=== PATIENT | female | born 1950 | race Asian ===

== ENCOUNTER 2021-06-25 12:14 | Inpatient (IN) ==
--- NOTE | 2021-06-25 12:50 | Emergency Department Note ---
History of Present Illness General Chief complaint: Nausea Stated complaint: NAUSEA,HASN'T BEEN ABLE TO KEEP ANYTHING [id number] Time Seen by Provider: 06/25/21 12:31 Source: patient History of Present Illness Provider complaint: Vomiting and abdominal pain Onset (ago): day(s) 2 Location: abdomen Radiation: non-radiation Severity: mild Pain Consistency: + intermittent Maximum Pain Intensity: 8 Quality: + sharp Relieved By: + medication (Oxycodone) Exacerbated By: + eating Associated symptoms: + nausea/vomiting; no chest pain, no cough, no fever/chills or no shortness of breath This is a 70-year-old female with a history of metastatic pancreatic disease presenting with abdominal discomfort and vomiting for the past 2 days. She describes the pain as a sharp pain across her upper abdomen. It is worse when she eats and better when she takes her oxycodone which she took earlier today. She states that she was able to keep down some soup and crackers this morning. She states that typically she will feel nauseated earlier in the day but when she has lunch and dinner she starts to feel worse and vomits. She denies any fever, cough or cold symptoms, chest pain, shortness of breath, diarrhea or urinary symptoms. The patient states that she had 2 normal bowel movements yesterday but none today. Her states that she was found to have a blood clot in the abdomen on her PET scan and is currently on Xarelto. She was on Xarelto prior to this. He is not exactly sure why. She did undergo a course of chemotherapy previously and did remarkably better with reduction in size of her mass and metastatic disease but recently has had worsening findings on her PET scan with disease in the lungs, liver and lymph nodes. Home Medications Medication Instructions Recorded Confirmed Type gabapentin 300 mg capsule 300 mg PO HS 06/17/21 06/25/21 History (Neurontin) [id number] 1 cap PO TIDM 06/17/21 06/25/21 History 36,000-114,000-180,000 unit capsule,delay rel (Creon) meloxicam 15 mg tablet (Mobic) 15 mg PO DAILY 06/17/21 06/25/21 History metoclopramide HCl 10 mg tablet 10 mg PO TIDM 06/17/21 06/25/21 History (Reglan) oxycodone 5 mg tablet (Roxicodone) 5 mg PO Q6H PRN 06/17/21 06/25/21 History docusate sodium 100 mg capsule 100 mg PO DAILY 06/25/21 06/25/21 History (Dulcolax Stool Softener (docusate)) fentanyl 12 mcg/hr transdermal 12 mcg TOPICAL Q72H 06/25/21 06/25/21 History patch ondansetron HCl 4 mg tablet 4 mg PO TID 06/25/21 06/25/21 History prednisone 10 mg tablet 10 mg PO DAILY 06/25/21 06/25/21 History rivaroxaban 15 mg tablet (Xarelto) 15 mg PO BID 06/25/21 06/25/21 History Allergies Allergy/AdvReac Type Severity Reaction Status Date / Time No Known Allergies Allergy Unverified 06/25/21 15:06 Past Med/Surg History Medical History History of biliary stent insertion Pancreatic cancer Transaminitis Social History Smoking Status: Never smoker Preferred Language: Paragu[place] Feels Safe at Home: Yes Review of Systems See HPI for pertinent positives & negatives. and A total of 10 systems reviewed and were otherwise negative Physical Exam Vital Signs Vital Signs - 24 hr 06/25/21 12:17 06/25/21 15:01 06/25/21 15:30 Temperature 36.9 C Temperature Source Oral Pulse Rate 71 71 67 Pulse Rate from SpO2 Sensor 73 68 Respiratory Rate 16 14 14 Blood Pressure 134/69 119/70 141/74 H Blood Pressure Mean 90 86 96 Pulse Oximetry 98 98 98 Oxygen Delivery Method Room Air Sepsis Recent Fever Within 48 Hours No Sepsis New/Unexplained Change in Mental Status No Sepsis Action Taken by Nursing No Action Required 06/25/21 16:00 06/25/21 16:30 06/25/21 17:00 Temperature Temperature Source Pulse Rate 70 70 76 Pulse Rate from SpO2 Sensor Respiratory Rate 15 17 17 Blood Pressure 145/66 H 149/73 H 151/75 H Blood Pressure Mean 92 98 100 Pulse Oximetry Oxygen Delivery Method Sepsis Recent Fever Within 48 Hours Sepsis New/Unexplained Change in Mental Status Sepsis Action Taken by Nursing 06/25/21 17:30 Temperature Temperature Source Pulse Rate 79 Pulse Rate from SpO2 Sensor Respiratory Rate 21 Blood Pressure 151/93 H Blood Pressure Mean 112 Pulse Oximetry Oxygen Delivery Method Sepsis Recent Fever Within 48 Hours Sepsis New/Unexplained Change in Mental Status Sepsis Action Taken by Nursing Constitutional: Vital signs reviewed. Eyes: Pupils are equal round reactive to light. Conjunctiva are noninjected. ENT: Pharynx is clear without erythema or exudate. Mucous membranes are dry. Neck supple without meningeal signs. Respiratory: Clear to auscultation bilaterally. Breath sounds are equal bilaterally. Cardiovascular: Regular rate and rhythm. No rubs or gallops. GI: Soft, distended and nontender. Bowel sounds are present. Rectal: Guaiac positive brown stool. No blood. Musculoskeletal: No peripheral edema. No lower extremity tenderness. Integumentary: No cyanosis. or jaundice. Neurological: The patient is awake and alert. No focal deficits. Psychiatric: Normal affect. Not anxious appearing. Course Administered Medications Sodium Chloride (Nss) 500 mls @ 80 mls/hr IV .Q6H15M ABRAHAM Stop: 07/25/21 12:44 Last Admin: 06/25/21 15:38 Dose: 80 mls/hr Documented by: [id number] Discontinued Medications Potassium Chloride (K Wander / Wtr) 10 meq in 100 mls @ 100 mls/hr IV Q1H ABRAHAM Stop: 06/25/21 17:59 Last Admin: 06/25/21 18:04 Dose: 100 mls/hr Documented by: [id number] Infusion: 06/25/21 17:24 Dose: 100 mls/hr Documented by: [id number] Admin: 06/25/21 16:24 Dose: 100 mls/hr Documented by: [id number] Pantoprazole Sodium 40 mg/ (Syringe) 10 mls @ 5 mls/min IV NOW STA Stop: 06/25/21 16:24 Last Admin: 06/25/21 17:10 Dose: 5 mls/min Documented by: [id number] Oxycodone HCl (Oxycodone Hcl Ir 5 Mg Tab (Immediate Release)) 5 mg PO NOW STA Stop: 06/25/21 16:59 Last Admin: 06/25/21 17:10 Dose: 5 mg Documented by: [id number] Medical Decision Making Differential Diagnosis Bowel obstruction, partial bowel obstruction, dehydration, gastritis, gastric outlet obstruction, ascites Medical Records Attestation: I reviewed the patient's medical records. I did perform a limited focused review of portions of the patient's old chart on the electronic medical record. The patient was seen here June [address] of the abdomen pelvis which showed increased size in the pancreatic mass as well as carcinomatosis, ascites and metastatic liver disease as well as earl involvement. She had a PET scan several days later which showed similar findings as well as metastatic disease to the lung. Home Medications Current Medication List: was personally reviewed by me Laboratory Data Attestation: I reviewed the patient's lab results. Result diagrams: 06/25/21 14:45 06/25/21 14:45 Lab Results 06/25/21 06/25/21 06/25/21 Range/Units 14:45 14:45 14:45 WBC 4.88 (4.8-10.8) K/uL RBC 3.02 L (4.2-5.4) M/uL Hgb 8.7 L (12.0-16.0) g/dL Hct 25.9 L (37-47) % MCV 85.8 (80-100) fL MCH 28.8 (25-34) pg MCHC 33.6 (32-36) g/dL RDW Std Deviation 46.4 H (36.4-46.3) fL RDW Coeff of Fara 14.7 H (11.5-14.5) % Plt Count 145 (130-400) K/uL MPV 8.8 (7.4-10.4) fL Immature Gran % (Auto) 0.2 % Neut % (Auto) 75.2 % Lymph % (Auto) 16.6 % Wharton % (Auto) 7.2 % Eos % (Auto) 0.4 % Baso % (Auto) 0.4 % Neut # (Auto) 3.67 (1.4-6.5) K/uL Lymph # (Auto) 0.81 L (1.2-3.4) K/uL Wharton # (Auto) 0.35 (0.11-0.59) K/uL Eos # (Auto) 0.02 (0-0.5) K/uL Baso # (Auto) 0.02 (0-0.2) K/uL Immature Gran # (Auto) 0.01 (0.00-0.02) K/uL Sodium 130 L (136-145) mmol/L Potassium 2.9 L (3.5-5.1) mmol/L Chloride 98 (98-107) mmol/L Carbon Dioxide 27 (21-32) mmol/L Anion Gap 5.0 (3-11) BUN 4 L (7-18) mg/dl Creatinine 0.18 L (0.6-1.2) mg/dl Est Cr Clr Drug Dosing 247.4 ml/min Est GFR ( Amer) > 150.0 ml/min Est GFR (Non-Af Amer) 139.2 ml/min BUN/Creatinine Ratio 22.5 H (10-20) Glucose 128 H (70-99) mg/dl Calcium 7.5 L (8.5-10.1) mg/dl Magnesium 1.9 (1.8-2.4) mg/dl Total Bilirubin 0.6 (0.2-1) mg/dl AST 34 (15-37) U/L ALT 68 (12-78) U/L Alkaline Phosphatase 590 H (45-117) U/L Troponin I < 0.015 (0-0.045) ng/ml Total Protein 5.9 L (6.4-8.2) gm/dl Albumin 2.0 L (3.4-5.0) gm/dl Globulin 3.9 (2.5-4.0) gm/dl Albumin/Globulin Ratio 0.5 L (0.9-2) Lipase 110 (73-393) U/L Urine Color Urine Appearance (Clear) Urine pH (4.5-7.5) Ur Specific [place]roix (1.000-1.030) Urine Protein (Negative) Urine Glucose (UA) (Negative) Urine Ketones (Negative) Urine Blood (Negative) Urine Nitrite (Negative) Urine Bilirubin (Negative) Urine Urobilinogen (Negative) Ur Leukocyte Esterase (Negative) Urine WBC (Auto) (0-5) /hpf Urine RBC (Auto) (0-4) /hpf U Hyaline Cast (Auto) (0-5) /lpf U Epithel Cells (Auto) (0-5) /lpf Urine Bacteria (Auto) (Negative) COVID-19 Eval Order SARS-CoV-2 (PCR) (Negative) 06/25/21 06/25/21 06/25/21 Range/Units 15:20 16:21 16:21 WBC (4.8-10.8) K/uL RBC (4.2-5.4) M/uL Hgb (12.0-16.0) g/dL Hct (37-47) % MCV (80-100) fL MCH (25-34) pg MCHC (32-36) g/dL RDW Std Deviation (36.4-46.3) fL RDW Coeff of Fara (11.5-14.5) % Plt Count (130-400) K/uL MPV (7.4-10.4) fL Immature Gran % (Auto) % Neut % (Auto) % Lymph % (Auto) % Wharton % (Auto) % Eos % (Auto) % Baso % (Auto) % Neut # (Auto) (1.4-6.5) K/uL Lymph # (Auto) (1.2-3.4) K/uL Wharton # (Auto) (0.11-0.59) K/uL Eos # (Auto) (0-0.5) K/uL Baso # (Auto) (0-0.2) K/uL Immature Gran # (Auto) (0.00-0.02) K/uL Sodium (136-145) mmol/L Potassium (3.5-5.1) mmol/L Chloride (98-107) mmol/L Carbon Dioxide (21-32) mmol/L Anion Gap (3-11) BUN (7-18) mg/dl Creatinine (0.6-1.2) mg/dl Est Cr Clr Drug Dosing ml/min Est GFR ( Amer) ml/min Est GFR (Non-Af Amer) ml/min BUN/Creatinine Ratio (10-20) Glucose (70-99) mg/dl Calcium (8.5-10.1) mg/dl Magnesium (1.8-2.4) mg/dl Total Bilirubin (0.2-1) mg/dl AST (15-37) U/L ALT (12-78) U/L Alkaline Phosphatase (45-117) U/L Troponin I (0-0.045) ng/ml Total Protein (6.4-8.2) gm/dl Albumin (3.4-5.0) gm/dl Globulin (2.5-4.0) gm/dl Albumin/Globulin Ratio (0.9-2) Lipase (73-393) U/L Urine Color Yellow Urine Appearance Cloudy A (Clear) Urine pH 8.5 H (4.5-7.5) Ur Specific [place]roix 1.007 (1.000-1.030) Urine Protein Negative (Negative) Urine Glucose (UA) Negative (Negative) Urine Ketones Negative (Negative) Urine Blood Negative (Negative) Urine Nitrite Negative (Negative) Urine Bilirubin Negative (Negative) Urine Urobilinogen Negative (Negative) Ur Leukocyte Esterase Trace H (Negative) Urine WBC (Auto) 1-5 (0-5) /hpf Urine RBC (Auto) 0-4 (0-4) /hpf U Hyaline Cast (Auto) 1-5 (0-5) /lpf U Epithel Cells (Auto) 10-20 H (0-5) /lpf Urine Bacteria (Auto) Negative (Negative) COVID-19 Eval Order Covid19 at [facility] SARS-CoV-2 (PCR) NEGATIVE (Negative) Imaging Data Radiologist's Impression: Abdomen/Pelvis CT 06/25/21 12:45 CT abd pelvis wo con CLINICAL INDICATION: MN ^vomiting eval for obstruction. History of pancreatic cancer. TECHNIQUE: Helical axial images of the abdomen and pelvis were obtained and displayed at 5 and 1 mm intervals. Automated dose lowering techniques and/or adjustment according to patient size were utilized for this exam. This exam was performed without intravenous contrast. COMPARISON: None available at the time of this dictation. FINDINGS: Lower chest: There is a small left pleural effusion. There is a right lung base nodule measuring 11 mm in diameter. An additional anterior nodular density is seen measuring 13 mm. These are unchanged from prior exam. Cardiomegaly with biatrial enlargement is seen. Liver: Unremarkable. No focal lesions are seen. Gallbladder and biliary tree: No calcified gallstones. Normal caliber wall. A biliary stent is in place. Pneumobilia is seen. Pancreas: There is marked dilation of the pancreatic duct and prominence of the pancreatic head compatible with history of pancreatic cancer. Spleen: Unremarkable. Adrenals: Thickening of the left adrenal gland is unchanged from prior exam. Kidneys and ureters: Unremarkable. Bladder: Unremarkable. Reproductive organs: Unremarkable. Bowel: A large amount of stool is seen. The appendix is unremarkable. There are a few distended small bowel loops in the proximal jejunum measuring up to 27 mm without evidence of yazmin dilation. Lymph nodes Retroperitoneal: Unremarkable. Mesenteric: Unremarkable. Pelvic: Unremarkable. Peritoneum: Mild to moderate ascites is seen. Vessels: Atherosclerotic calcifications are seen. Abdominal wall: A fat-containing umbilical hernia is seen. Bones: Unremarkable. IMPRESSION: 1. A few distended loops of small bowel are seen without yazmin dilation, this may represent ileus or enteritis but is unlikely to represent obstruction. 2. Pancreatic head mass with dilated pancreatic duct and biliary stent in place with resulting pneumobilia. 3. Additional findings as above. ACT 112: Negative or not required by law. Electronically signed by: Leroy Quick M.D. 06/25/2021 1:10 PM ECG Data Attestation: I personally reviewed and interpreted this ECG as follows: Indication: + abdominal pain Rate (beats per minute): 67 Rhythm: + normal sinus ECG [place]: + Normal ECG ST segments: + T-wave inversions ECG Findings: no PVCs Comparison ECG Date: from (June 17, 2021) Change: no significant change MDM Narrative I did evaluate the patient as noted above. She has a history of metastatic pancreatic cancer and presents with vomiting and abdominal pain for the past 2 days with abdominal distention. IV access was established. I did treat her with normal saline IV. I did place an order for continuous cardiac monitoring. The monitor showed normal sinus rhythm at a rate of 68 bpm. I did order and personally review the patient's 12-lead EKG as described above. She has no acute ischemic changes. I did order a urine analysis. She does not have a UTI. I did order and review the patient's blood work as noted in the electronic medical record. Her white blood cell count is 4.8. Hemoglobin is 8.7. This is down from 10.5 June 22. The patient is on Xarelto. She states she has not taking it since yesterday. She denies any rectal bleeding or melanotic stools. I did perform a rectal examination which showed strongly guaiac positive brown stool. I did order a type and screen. She remains hemodynamically stable and does not currently require transfusion. Her platelet count is normal. Electrolytes demonstrate a sodium of 130, potassium of 2.9 and a calcium of 7.5. I did order IV KCl. I did order a CT of the abdomen and pelvis. I did review the images myself as well as the radiology report as described above. She does not appear to have an obstruction. There are small bowel loops that are distended but not dilated. She does have abdominal ascites. I did discuss the test results with the patient and her . I did recommend hospitalization for further care and evaluation. I did discuss case with hospitalist and case filler. Impression & Plan Acute GI bleeding, Malignant neoplasm of pancreas metastatic to liver, Anticoagulated, Anemia due to blood loss, Acute hyponatremia, Hypokalemia, Hypocalcemia Discharge Plan Visit Data Chief Complaint: Nausea Stated Complaint: NAUSEA,HASN'T BEEN ABLE TO KEEP ANYTHING [id number] ED Provider: Juan F Natarajan Discharge Problem: Acute GI bleeding, Malignant neoplasm of pancreas metastatic to liver, Anticoagulated, Anemia due to blood loss, Acute hyponatremia, Hypokalemia, Hypocalcemia Patient Disposition: Admitted As Inpatient Forms Stand Alone Forms: [facility] Prescriptions Prescriptions: No Action meloxicam [Mobic] 15 mg tablet 15 mg PO DAILY RF: 0 gabapentin [Neurontin] 300 mg capsule 300 mg PO HS RF: 0 metoclopramide HCl [Reglan] 10 mg tablet 10 mg PO TIDM RF: 0 oxycodone [Roxicodone] 5 mg tablet 5 mg PO Q6H PRN (Reason: Pain) RF: 0 Creon 36,000-114,000- 180,000 unit capsule,delayed release(DR/EC) 1 cap PO TIDM RF: 0 prednisone 10 mg tablet 10 mg PO DAILY RF: 0 ondansetron HCl 4 mg tablet 4 mg PO TID RF: 0 docusate sodium [Dulcolax Stool Softener (dss)] 100 mg Capsule 100 mg PO DAILY RF: 0 fentanyl 12 mcg/hr patch 72 hour 12 mcg topical Q72H RF: 0 Xarelto 15 mg tablet 15 mg PO BID RF: 0 Referrals Referrals: Griselda Fair D.O. [Primary Care Provider] -
--- NOTE | 2021-06-25 13:12 | CT Scan Report ---
CT abd pelvis wo con CLINICAL INDICATION: MN ^vomiting eval for obstruction. History of pancreatic cancer. TECHNIQUE: Helical axial images of the abdomen and pelvis were obtained and displayed at 5 and 1 mm i ntervals. Automated dose lowering techniques and/or adjustment according to patient size were utilize d for this exam. This exam was performed without intravenous contrast. COMPARISON: None available at the time of this dictation. FINDINGS: Lower chest: There is a small left pleural effusion. There is a right lung base nodule measuring 11 mm in diameter. An additional anterior nodular density is seen measuring 13 mm. These are unchanged f rom prior exam. Cardiomegaly with biatrial enlargement is seen. Liver: Unremarkable. No focal lesions are seen. Gallbladder and biliary tree: No calcified gallstones. Normal caliber wall. A biliary stent is in perri ce. Pneumobilia is seen. Pancreas: There is marked dilation of the pancreatic duct and prominence of the pancreatic head natacha tible with history of pancreatic cancer. Spleen: Unremarkable. Adrenals: Thickening of the left adrenal gland is unchanged from prior exam. Kidneys and ureters: Unremarkable. Bladder: Unremarkable. Reproductive organs: Unremarkable. Bowel: A large amount of stool is seen. The appendix is unremarkable. There are a few distended small bowel loops in the proximal jejunum measuring up to 27 mm without evidence of yazmin dilation. Lymph nodes Retroperitoneal: Unremarkable. Mesenteric: Unremarkable. Pelvic: Unremarkable. Peritoneum: Mild to moderate ascites is seen. Vessels: Atherosclerotic calcifications are seen. Abdominal wall: A fat-containing umbilical hernia is seen. Bones: Unremarkable. IMPRESSION: 1. A few distended loops of small bowel are seen without yazmin dilation, this may represent ileus or enteritis but is unlikely to represent obstruction. 2. Pancreatic head mass with dilated pancreatic duct and biliary stent in place with resulting pneum obilia. 3. Additional findings as above. ACT 112: Negative or not required by law. Electronically signed by: Leroy Quick M.D. 06/25/2021 1:10 PM
[2021-06-25 14:56] LABS: Basophils # (auto) 0.02 K/uL (0-0.2); Basophils % (auto) 0.4 %; Eosinophils # (auto) 0.02 K/uL (0-0.5); Eosinophils % (auto) 0.4 %; Hematocrit (blood only) 25.9 % (37-47); Hemoglobin 8.7 g/dL (12.0-16.0); Immature Granulocytes # (auto) 0.01 K/uL (0.00-0.02); Immature Granulocytes % (auto) 0.2 %; Lymphocytes # (auto) 0.81 K/uL (1.2-3.4); Lymphocytes % (auto) 16.6 %; Mean Corpuscular Hemoglobin 28.8 pg (25-34); Mean Corpuscular Hgb Conc 33.6 g/dL (32-36); Mean Corpuscular Volume 85.8 fL (80-100); Mean Platelet Volume 8.8 fL (7.4-10.4); Monocytes # (auto) 0.35 K/uL (0.11-0.59); Monocytes % (auto) 7.2 %; Neutrophils # (auto) 3.67 K/uL (1.4-6.5); Neutrophils % (auto) 75.2 %; Platelet Count 145 K/uL (130-400); RDW Coefficient of Variation 14.7 % (11.5-14.5); RDW Standard Deviation 46.4 fL (36.4-46.3); Red Blood Count 3.02 M/uL (4.2-5.4); White Blood Count 4.88 K/uL (4.8-10.8)
[2021-06-25 15:24] LABS: Alanine Aminotransferase 68 U/L (12-78); Aspartate Aminotransferase 34 U/L (15-37); BUN Creatinine Ratio 22.5 (10-20); Blood Urea Nitrogen 4 mg/dl (7-18); Calcium 7.5 mg/dl (8.5-10.1); Carbon Dioxide 27 mmol/L (21-32); Chloride 98 mmol/L (98-107); Creatinine Clr Calc Pharmacy 247.4 ml/min; Est GFR (African American) > 150.0 ml/min; Est GFR (Non-African American) 139.2 ml/min; Glucose 128 mg/dl (70-99); Lipase 110 U/L (73-393); Potassium 2.9 mmol/L (3.5-5.1); Sodium 130 mmol/L (136-145)
[2021-06-25 15:29] LABS: Albumin Globulin Ratio 0.5 (0.9-2); Alkaline Phosphatase 590 U/L (45-117); Bilirubin,Total 0.6 mg/dl (0.2-1); Globulin 3.9 gm/dl (2.5-4.0); Total Protein 5.9 gm/dl (6.4-8.2); Troponin I < 0.015 ng/ml (0-0.045)
[2021-06-25 15:30] LABS: Appearance Urine Cloudy (Clear); Bacteria Urine Automated Negative (Negative); Bilirubin Urine Negative (Negative); Blood Urine Negative (Negative); Color Urine Yellow; Glucose Urine UA Negative (Negative); Ketones Urine Negative (Negative); Leukocyte Esterase Urine Trace (Negative); Nitrite Urine Negative (Negative); Protein Urine Negative (Negative); RBC Urine Automated 0-4 /hpf (0-4); Specific Gravity Urine 1.007 (1.000-1.030); Urobilinogen Urine Negative (Negative); pH Urine 8.5 (4.5-7.5)
[2021-06-25] MEDS: SODIUM CHLORIDE 0.9% 500 ML IV SCH ×2 (15:38→19:48)
--- NOTE | 2021-06-25 16:21 | History & Physical Report ---
Date of Service June 25, 2021 Assessment & Plan (1) Acute GI bleeding: Plan: Appears to be new since hemoglobin stable on June 22 labs. FOB +ve. Pantoprazole 40mg IV BID Serial H&H Q6H Hold meloxicam and Xarelto Consult gastroenterology (2) Vomiting: Plan: Ileus noted on CT but no obstruction. Suspect from GI bleed. Also fits with Fentayl patch if continues despite treatment above would consider d/c this. Continue metoclopramide and ondansetron (3) Epigastric pain: Plan: Suspect from gastritis as above. Pantoprazole. 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 NSS +KCl 40 meq ordered (6) Hypokalemia: Plan: Replacement as above (7) Renal vein occlusion: Plan: Hold Xarelto due to GI bleed as above Plan: VTE Prophylaxis - scd Diet - clear liquid Disposition - admit to med/tele Admission and Anticipated Discharge Date Admission Date: June 25, 2021 History of Present Illness Chief Complaint: Vomiting Primary Care Provider: Griselda Fair Gustavo Hernández is a 70 year old female with who presents to the ER with vomiting for the last 2 days. and patient tell me this is new regarding her illness and she has not had this problem previously even when she was on more chemotherapy. Although is notably on metoclopramide and ondansetron suggesting she has had problems in the past. She also notes epigastric pain for the last 3 weeks after starting meloxicam ?4-8 weeks ago for arthritis pain. Currently planning on chemotherapy possibly starting again next week. Unfortunately a recent PET scan showed significant malignant spread of her pancreatic cancer. Due to her abdominal pain she takes oxycodone which was recently increased to 10mg and she reports starting a Fentanyl patch 3 days ago. In th ER she was noted to have a hemoglobin of 8.7 from 10.5 just 3 days prior. Fecal occult blood was positive. She denies any melena or bright red blood in her stool. She has been having BM but does reports having problems with constipation. She had 2 normal BM yesterday. Abdominal pain is no worse than usual. LFTs and lipase were relatively unremarkable. CT A/P showed ileus and pancreatic head mass with dilated pancreatic duct and biliary stent in place. She was referred to medicine for admission and ongoing management of GI bleed. Allergies Allergy/AdvReac Type Severity Reaction Status Date / Time No Known Allergies Allergy Unverified 06/25/21 15:06 Home Medications Medication Instructions Recorded Confirmed Type gabapentin 300 mg capsule 300 mg PO HS 06/17/21 06/25/21 History (Neurontin) [id number] 1 cap PO TIDM 06/17/21 06/25/21 History 36,000-114,000-180,000 unit capsule,delay rel (Creon) meloxicam 15 mg tablet (Mobic) 15 mg PO DAILY 06/17/21 06/25/21 History metoclopramide HCl 10 mg tablet 10 mg PO TIDM 06/17/21 06/25/21 History (Reglan) oxycodone 5 mg tablet (Roxicodone) 5 mg PO Q6H PRN 06/17/21 06/25/21 History docusate sodium 100 mg capsule 100 mg PO DAILY 06/25/21 06/25/21 History (Dulcolax Stool Softener (docusate)) fentanyl 12 mcg/hr transdermal 12 mcg TOPICAL Q72H 06/25/21 06/25/21 History patch ondansetron HCl 4 mg tablet 4 mg PO TID 06/25/21 06/25/21 History prednisone 10 mg tablet 10 mg PO DAILY 06/25/21 06/25/21 History rivaroxaban 15 mg tablet (Xarelto) 15 mg PO BID 06/25/21 06/25/21 History Past Med/Surg History Medical History History of biliary stent insertion Pancreatic cancer Transaminitis Social History Smoking Status: Never smoker Hx Alcohol Use: No Hx Substance Use: No Preferred Language: Zambian Communication Ability: Effective Channeling 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 Required: No Beliefs That Will Affect Care: None Current Living Situation: Spouse Other Information That Helps Us Care for You: No Feels Safe at Home: Yes Safety Concerns: Feels Safe At This Time Assistive Devices: None Review of Systems Review of Systems: All systems reviewed & are unremarkable except as noted in HPI & below Physical Exam Constitutional: well developed and + cachectic; no acute distress Eyes: PERRL, conjunctivae normal, anicteric sclerae ENMT: external ear and nose normal, oropharynx normal Neck: trachea midline, no thyromegaly Respiratory: normal respiratory effort, lungs clear to auscultation Cardiovascular: RRR, no murmur, no edema Gastrointestinal (Abdomen): Inspection/Auscultation: + abdomen distended and + hypoactive bowel sounds Percussion/Palpation: + abdomen tender (suprapubic) and abdomen soft; no guarding and abdomen not rigid Musculoskeletal: no cyanosis or clubbing, extremities motor strength 5/5 Skin: no rashes, warm and dry Neurologic: moves all extremities and awake; no focal motor deficits and not confused Psychiatric: A+Ox3, euthymic affect Genitourinary: no CVA tenderness Results & Data Results & Data ([facility]) Vital Signs (Past 12 Hours) Vital Signs Temp Pulse Resp BP Pulse Ox 06/25/21 12:17 36.9 C 71 16 134/[address] abd pelvis wo con CLINICAL INDICATION: MN ^vomiting eval for obstruction. History of pancreatic cancer. TECHNIQUE: Helical axial images of the abdomen and pelvis were obtained and displayed at 5 and 1 mm intervals. Automated dose lowering techniques and/or adjustment according to patient size were utilized for this exam. This exam was performed without intravenous contrast. COMPARISON: None available at the time of this dictation. FINDINGS: Lower chest: There is a small left pleural effusion. There is a right lung base nodule measuring 11 mm in diameter. An additional anterior nodular density is seen measuring 13 mm. These are unchanged from prior exam. Cardiomegaly with biatrial enlargement is seen. Liver: Unremarkable. No focal lesions are seen. Gallbladder and biliary tree: No calcified gallstones. Normal caliber wall. A biliary stent is in place. Pneumobilia is seen. Pancreas: There is marked dilation of the pancreatic duct and prominence of the pancreatic head compatible with history of pancreatic cancer. Spleen: Unremarkable. Adrenals: Thickening of the left adrenal gland is unchanged from prior exam. Kidneys and ureters: Unremarkable. Bladder: Unremarkable. Reproductive organs: Unremarkable. Bowel: A large amount of stool is seen. The appendix is unremarkable. There are a few distended small bowel loops in the proximal jejunum measuring up to 27 mm without evidence of yazmin dilation. Lymph nodes Retroperitoneal: Unremarkable. Mesenteric: Unremarkable. Pelvic: Unremarkable. Peritoneum: Mild to moderate ascites is seen. Vessels: Atherosclerotic calcifications are seen. Abdominal wall: A fat-containing umbilical hernia is seen. Bones: Unremarkable. IMPRESSION: 1. A few distended loops of small bowel are seen without yazmin dilation, this may represent ileus or enteritis but is unlikely to represent obstruction. 2. Pancreatic head mass with dilated pancreatic duct and biliary stent in place with resulting pneumobilia. 3. Additional findings as above. Medications Administered ER Medications Given: NSS 500ml @ 80ml/hr Potassium chloride 10 meq IV x2 ECG Indication: abdominal pain Rate (beats per minute): 67 Rhythm: normal sinus Findings: no acute ischemic change Comparison ECG Date: from (June 17, 2021) Change: no significant change Code Status & VTE Plan Code Status DNR/DNI as discussed with the patient VTE Prophylaxis Plan VTE Prophylaxis will be ordered: Yes Reason for no VTE drug order: Contraindicated PG Care Time/CCT Total # of Minutes Spent Total Time Spent with Patient: Total time spent is greater than 50% in coordination of care (as documented) at patient's floor/unit and/or counseling patient: Coding Level of Care Code 37158 Initial Inpt Care Lvl 3 Diagnoses 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
[2021-06-25] MEDS ORDERED: PANTOprazole 40 MG in SYRINGE 0 ML IV STA (16:23)
[2021-06-25] MEDS: POTASSIUM CHLORIDE / WTR 10 MEQ/100 ML PLCT IV SCH ×2 (16:24→18:04)
[2021-06-25] MEDS ORDERED: oxyCODONE HCL IR 5 MG TAB (IMMEDIATE RELEASE) PO STA (16:58)
[2021-06-25] MEDS ORDERED: ONDANSETRON INJ 2 MG/ML 2 ML VIAL IV PRN (17:04)
[2021-06-25] MEDS ORDERED: INFLUENZA VACCINE HIGH DOSE PF 65+ 0.7 ML SYR IM ONE (19:40)
[2021-06-25] MEDS ORDERED: fentaNYL 12 MCG/HR TDSY TD SCH (20:00)
[2021-06-25] MEDS: POTASSIUM CHLORIDE 40 MEQ in SODIUM CHLORIDE 0.9% 1000ML 1,000 ML IV SCH (20:54)
[2021-06-25] MEDS: GABAPENTIN 300 MG CAP PO SCH (20:55)
[2021-06-25] MEDS: PANTOprazole 40 MG in SYRINGE 0 ML IV SCH (20:55)
[2021-06-25 21:11] LABS: Hematocrit (blood only) 31.5 % (37-47); Hemoglobin 10.4 g/dL (12.0-16.0)
[2021-06-25] MEDS ORDERED: HEPARIN 100 UNIT/ML 5ML FLUSH FLUSH PRN (21:26)
[2021-06-25] MEDS: oxyCODONE HCL IR 5 MG TAB (IMMEDIATE RELEASE) PO PRN (21:49)
[2021-06-26] MEDS ORDERED: CHECK fentaNYL PATCH PLACEMENT SCH
[2021-06-26] MEDS: CHECK fentaNYL PATCH PLACEMENT SCH ×3 (00:07→16:49)
[2021-06-26 02:54] LABS: Basophils # (auto) 0.02 K/uL (0-0.2); Basophils % (auto) 0.4 %; Eosinophils # (auto) 0.05 K/uL (0-0.5); Eosinophils % (auto) 0.9 %; Hematocrit (blood only) 28.2 % (37-47); Hemoglobin 9.4 g/dL (12.0-16.0); Lymphocytes # (auto) 0.75 K/uL (1.2-3.4); Lymphocytes % (auto) 13.9 %; Mean Corpuscular Hemoglobin 28.5 pg (25-34); Mean Corpuscular Hgb Conc 33.3 g/dL (32-36); Mean Corpuscular Volume 85.5 fL (80-100); Monocytes % (auto) 9.3 %; Neutrophils # (auto) 4.08 K/uL (1.4-6.5); Neutrophils % (auto) 75.5 %; Platelet Count 150 K/uL (130-400); RDW Coefficient of Variation 14.6 % (11.5-14.5); RDW Standard Deviation 45.9 fL (36.4-46.3)
[2021-06-26 03:17] LABS: Albumin Globulin Ratio 0.5 (0.9-2); Albumin Level 2.3 gm/dl (3.4-5.0); Bilirubin,Total 0.6 mg/dl (0.2-1); Calcium 8.3 mg/dl (8.5-10.1); Creatinine Clr Calc Pharmacy 159.1 ml/min; Est GFR (African American) 139.5 ml/min; Est GFR (Non-African American) 120.3 ml/min; Globulin 4.4 gm/dl (2.5-4.0); Potassium 3.9 mmol/L (3.5-5.1); Total Protein 6.7 gm/dl (6.4-8.2)
[2021-06-26 06:27] LABS: Hematocrit (blood only) 31.5 % (37-47); Hemoglobin 10.4 g/dL (12.0-16.0)
[2021-06-26] MEDS: POTASSIUM CHLORIDE 40 MEQ in SODIUM CHLORIDE 0.9% 1000ML 1,000 ML IV SCH ×2 (06:32→18:25)
[2021-06-26] MEDS: PANCREAZE (LIPASE 10,500U) CAP PO SCH ×3 (07:54→16:50)
[2021-06-26] MEDS: METOCLOPRAMIDE HCL 10 MG TABLET PO SCH ×3 (07:55→16:50)
[2021-06-26] MEDS: oxyCODONE HCL IR 5 MG TAB (IMMEDIATE RELEASE) PO PRN ×2 (07:59→18:27)
[2021-06-26] MEDS: PANTOprazole 40 MG in SYRINGE 0 ML IV SCH ×2 (10:38→20:32)
--- NOTE | 2021-06-26 17:02 | Hospitalist Progress Note ---
Date of Service June 26, 2021 Assessment & Plan (1) Acute GI bleeding: Plan: Gustavo Hernández is a 70-year-old female with a past medical history of pancreatic cancer anticipating chemotherapy this week with a past history of biliary stenting who presented with 2 days of vomiting and who was admitted for concern of GI bleed after hemoglobin dropped from 10.5-8.7 over 3 days with fecal occult positive. Acute blood loss anemia 2/2 GI bleeding Hemoglobin 06/22 10.5, acutely decreased 8.7 at admission Fecal occult blood positive No hematemesis/melena/bright red blood per rectum at time of assessment Hemoglobin improved to 10.4 on recheck, no ongoing signs of bleeding No abdominal pain on admission or at time of assessment Protonix 40 mg IV twice daily Trend H&H Meloxicam and Xarelto held on admission Gastroenterology consulted, ?EGD (2) Vomiting: Plan: CT A/P: A few distended loops of small bowel are seen without yazmin dilation, this may represent ileus or enteritis but is unlikely to represent obstruction. Pancreatic head mass with dilated pancreatic duct and biliary stent in place with resulting pneumobilia. ? 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 Mcfarland No acute management indicated at this time (5) Acute hyponatremia: Plan: 2/2 acute gastritis/vomiting Slightly worsened today, progressive from 30- 28 With improved hypokalemia Continue NSS plus KCl 40 cc, patient with improving oral intake decreased to 75 cc/h (6) Hypokalemia: Plan: Repleted, IVF as above Normalized to 3.9 (7) Renal vein occlusion: Plan: Temporarily hold Xarelto due to GI bleed as above Plan: VTE Prophylaxis - scd Diet - clear liquid Disposition - admit to med/tele Admission and Anticipated Discharge Date Admission Date: June 25, 2021 Subjective Patient is seen at the bedside this morning. She reports that she feels better than yesterday, and has no abdominal pain today. She denies lightheadedness, chest pain, chest pressure. She is not short of breath. She feels her belly is slightly distended and rounded, but without pain. She has not had a bowel movement today, has passed gas. Denies fever/chills/sweats. Review of Systems Review of Systems: Point review of systems negative except as noted above Physical Exam Physical Exam: General: A&Ox3. NAD. Cooperative. Appears thin. HEENT: Atraumatic, normocephalic. Visual acuity and hearing grossly intact. Pulm: CTAB A&P. -wheezes, -rales, -rhonchi. Symmetrical chest rise. No increase work of breathing. No respiratory distress. Cardiac: RRR, -mrg. Radial pulses intact and symmetrical. Abdominal: Mild epigastric tenderness, mild suprapubic tenderness. Otherwise nontender, no rebound tenderness, softly distended, bowel sounds intact. Extremities: Moving all extremities equally, distal extremity strength grossly intact. Sensation in hands intact bilaterally. Third Steel Pourer strength intact bilaterally. 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
[2021-06-26] MEDS: POLYETHYLENE (MIRALAX) 17 GM PACK PO SCH (18:08)
--- NOTE | 2021-06-26 19:42 | Electrocardiogram Report ---
Test Reason : Blood Pressure : / mmHG Vent. Rate : 067 BPM Atrial Rate : 067 BPM P-R Int : 140 ms QRS Dur : 088 ms QT Int : 432 ms P-R-T Axes : 036 034 035 degrees QTc Int : 456 ms Normal sinus rhythm Normal ECG When compared with ECG of 17-JUN-2021 13:59, No significant change was found Confirmed by Ford Harrison ([id number]) on 06/26/2021 7:42:40 PM Referred By: REFERRED SELF Confirmed By:Ford Harrison
[2021-06-26] MEDS: GABAPENTIN 300 MG CAP PO SCH (20:33)
[2021-06-27] MEDS: CHECK fentaNYL PATCH PLACEMENT SCH ×3 (00:06→15:36)
[2021-06-27] MEDS: oxyCODONE HCL IR 5 MG TAB (IMMEDIATE RELEASE) PO PRN ×4 (01:00→22:28)
[2021-06-27] MEDS: POTASSIUM CHLORIDE 40 MEQ in SODIUM CHLORIDE 0.9% 1000ML 1,000 ML IV SCH ×2 (04:25→14:01)
[2021-06-27 07:52] LABS: Basophils # (auto) 0.03 K/uL (0-0.2); Basophils % (auto) 0.5 %; Eosinophils # (auto) 0.05 K/uL (0-0.5); Eosinophils % (auto) 0.8 %; Hematocrit (blood only) 32.4 % (37-47); Hemoglobin 10.6 g/dL (12.0-16.0); Immature Granulocytes # (auto) 0.01 K/uL (0.00-0.02); Immature Granulocytes % (auto) 0.2 %; Lymphocytes # (auto) 0.64 K/uL (1.2-3.4); Lymphocytes % (auto) 10.6 %; Mean Corpuscular Hemoglobin 28.3 pg (25-34); Mean Corpuscular Hgb Conc 32.7 g/dL (32-36); Mean Corpuscular Volume 86.4 fL (80-100); Mean Platelet Volume 8.6 fL (7.4-10.4); Monocytes % (auto) 8.3 %; Neutrophils # (auto) 4.81 K/uL (1.4-6.5); Neutrophils % (auto) 79.6 %; Platelet Count 167 K/uL (130-400); RDW Coefficient of Variation 14.6 % (11.5-14.5); RDW Standard Deviation 46.7 fL (36.4-46.3); Red Blood Count 3.75 M/uL (4.2-5.4); White Blood Count 6.04 K/uL (4.8-10.8)
[2021-06-27] MEDS: PANTOprazole 40 MG in SYRINGE 0 ML IV SCH ×2 (08:15→21:10)
[2021-06-27] MEDS: METOCLOPRAMIDE HCL 10 MG TABLET PO SCH ×3 (08:15→16:42)
[2021-06-27] MEDS: PANCREAZE (LIPASE 10,500U) CAP PO SCH ×3 (08:15→16:42)
[2021-06-27] MEDS: POLYETHYLENE (MIRALAX) 17 GM PACK PO SCH ×2 (08:16→21:11)
[2021-06-27 08:21] LABS: BUN Creatinine Ratio 7.6 (10-20); Calcium 8.8 mg/dl (8.5-10.1); Creatinine Clr Calc Pharmacy 153.6 ml/min; Est GFR (African American) 137.9 ml/min; Potassium 4.2 mmol/L (3.5-5.1)
--- NOTE | 2021-06-27 09:30 | Gastrointestinal Consultation ---
Date of Consultation June 27, 2021 Assessment & Plan (1) Nausea & vomiting: No signs or symptoms of GI bleeding. Do agree that the possibility of nausea vomiting is likely exacerbated by potential ileus secondary to electrolyte abnormalities as well as narcotic use. No signs of biliary o bstruction. I would start on clear liquids today see how tolerated. Serial abdominal imaging. Correction of electrolytes. Antiemetics, once daily PPI and will follow. History of Present Illness Attending Physician: Mike Galindo MD History of Present Illness Gustavo Hernández is a 70 year old female with a history of known metastatic pancreatic cancer apparently diagnosed in [facility], with the placement of what appears to be a metal biliary stent. She presented to the ER with 2 days of vomiting. She states that she has had watery emesis without evidence of bleeding with normal bowel movements. She denies any melena, hematochezia or hematemesis. In the ER she was noted to have a hemoglobin of 8.7 down from 10.5. LFTs were unremarkable and CT scan of the abdomen pelvis showed a possible ileus of the small bowel without obvious transition point. Since admission, she has had no further vomiting, abdominal discomfort is improved. Her hemoglobin without transfusion is now back up to 10.4. She does have hyponatremia as well as other electrolyte abnormalities. Overall she feels well. She is been passing stool. She does have chronic diffuse abdominal pain as well as shoulder pain. She apparently is due for her next induction of chemotherapy. Allergies Allergy/AdvReac Type Severity Reaction Status Date / Time No Known Allergies Allergy Unverified 06/25/21 15:06 Home Medications Medication Instructions Recorded Confirmed Type gabapentin 300 mg capsule 300 mg PO HS 06/17/21 06/25/21 History (Neurontin) [id number] 1 cap PO TIDM 06/17/21 06/25/21 History 36,000-114,000-180,000 unit capsule,delay rel (Creon) meloxicam 15 mg tablet (Mobic) 15 mg PO DAILY 06/17/21 06/25/21 History metoclopramide HCl 10 mg tablet 10 mg PO TIDM 06/17/21 06/25/21 History (Reglan) oxycodone 5 mg tablet (Roxicodone) 5 mg PO Q6H PRN 06/17/21 06/25/21 History docusate sodium 100 mg capsule 100 mg PO DAILY 06/25/21 06/25/21 History (Dulcolax Stool Softener (docusate)) fentanyl 12 mcg/hr transdermal 12 mcg TOPICAL Q72H 06/25/21 06/25/21 History patch ondansetron HCl 4 mg tablet 4 mg PO TID 06/25/21 06/25/21 History prednisone 10 mg tablet 10 mg PO DAILY 06/25/21 06/25/21 History rivaroxaban 15 mg tablet (Xarelto) 15 mg PO BID 06/25/21 06/25/21 History Patient History Medical History History of biliary stent insertion Pancreatic cancer Transaminitis Social History Smoking Status: Never smoker Hx Alcohol Use: No Hx Substance Use: No Preferred Language: Azeri Communication Ability: Effective 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 Required: No Beliefs That Will Affect Care: None Current Living Situation: Spouse Other Information That Helps Us Care for You: No Feels Safe at Home: Yes Safety Concerns: Feels Safe At This Time Assistive Devices: None Review of Systems Review of Systems: 10 system review of systems negative except for stated as above Results & Data ([facility]) Vital Signs (Past 12 Hours) Vital Signs Temp Pulse Pulse Resp BP Pulse Ox 06/27/21 08:00 68 06/27/21 07:41 36.6 C 75 20 131/75 95 06/27/21 06:30 37.0 C 75 15 121/71 96 06/27/21 03:51 36.7 C 68 16 119/63 97 06/26/21 23:13 66 06/26/21 22:49 37.1 C 69 17 124/71 97
--- NOTE | 2021-06-27 13:24 | Hospitalist Progress Note ---
Date of Service June 27, 2021 Assessment & Plan (1) Acute GI bleeding: Plan: Gustavo Hernández is a 70-year-old female with a past medical history of pancreatic cancer anticipating chemotherapy this week with a past history of biliary stenting who presented with 2 days of vomiting and who was admitted for concern of GI bleed after hemoglobin dropped from 10.5-8.7 over 3 days with fecal occult positive. Acute blood loss anemia 2/2 GI bleeding Hemoglobin 06/22 10.5, acutely decreased 8.7 at admission Fecal occult blood positive No hematemesis/melena/bright red blood per rectum at time of assessment Hemoglobin improved to 10.4 on recheck, no ongoing signs of bleeding No abdominal pain on admission or at time of assessment Protonix 40 mg IV twice daily Trend H&H Meloxicam and Xarelto held on admission Gastroenterology consulted. No ongoing signs of GI bleeding, no additional work-up at this time. Potential ileus management as below. (2) Ileus: Plan: - GI consulted. Suspect nausea/vomiting exacerbated by potential ileus. Recommend serial abdominal imaging, BMP and correction daily, antiemetics, daily PPI and continue to follow Suspect potential narcotic induced partial/developing ileus due to fentanyl patch. Patient recently started on fentanyl patch, currently on 25 mcg dose, will decrease by half. Breakthrough pain control with 25 hydromorphone as needed Suspect patient's initial epigastric pain was improved with fentanyl, new pain appears consistent with constipation KUB ordered for 06/28 (3) Vomiting: Plan: CT A/P: A few distended loops of small bowel are seen without ayzmin dilation, this may represent ileus or enteritis but is unlikely to represent obstruction. Pancreatic head mass with dilated pancreatic duct and biliary stent in place with resulting pneumobilia. ? 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 Mcfarland No acute management indicated at this time (6) Acute hyponatremia: Plan: Improved with fluids Continue NSS plus KCl 40 cc/h, clears (7) Hypokalemia: Plan: Repleted, IVF as above Normalized on 06/26 (8) Renal vein occlusion: Plan: Temporarily hold Xarelto due to GI bleed as above Plan: VTE Prophylaxis - scd Diet - clear liquid Disposition - admit to med/tele Admission and Anticipated Discharge Date Admission Date: June 25, 2021 Subjective Patient is seen at the bedside this morning. She reports that her pain mid to low abdomen has increased, and feels that her belly is more distended. She reports that she started the fentanyl patch and was advised to go to a 2 patch dose by her outpatient provider to treat epigastric pain which improved, but then 2 days later her belly seemed more distended and had a dull pain which developed. She has not had nausea or vomiting today. Endorsed a small bowel movement previously, without blood. He denies fever, chills, sweats, chest pain, difficulty breathing. No melena, signs of bleeding. No lightheadedness or dizziness today. Review of Systems Review of Systems: 10 point review systems negative except as noted above Physical Exam 2 Physical Exam: General: A&Ox3. NAD. Cooperative. Appears thin. HEENT: Atraumatic, normocephalic. Visual acuity and hearing grossly intact. Pulm: CTAB A&P. -wheezes, -rales, -rhonchi. Symmetrical chest rise. No increase work of breathing. No respiratory distress. Cardiac: RRR, -mrg. Radial pulses intact and symmetrical. Abdominal: Mild epigastric tenderness, mild suprapubic tenderness. Otherwise nontender, no rebound tenderness, softly distended, bowel sounds intact. Extremities: Moving all extremities equally, distal extremity strength grossly intact. Sensation in hands intact bilaterally. Escapement Matcher strength intact bilaterally. Results & Data Results & Data ([facility]) Vital Signs (Past 12 Hours) Vital Signs Temp Pulse Pulse Resp BP Pulse Ox 06/27/21 11:41 36.8 C 75 18 131/75 96 06/27/21 08:00 68 06/27/21 07:41 36.6 C 75 20 131/75 95 06/27/21 06:30 37.0 C 75 15 121/71 96 06/27/21 03:51 36.7 C 68 16 119/63 97 PG Care Time/CCT Total # of Minutes Spent Total Time Spent with Patient: Total time spent is greater than 50% in coordination of care (as documented) at patient's floor/unit and/or counseling patient: Coding Level of Care Code 84688 Subseq Hosp Care Lvl 3 Diagnoses Acute GI bleeding K92.2 Vomiting R11.10 Epigastric pain R10.13 Malignant neoplasm of pancreas metastatic to liver C25.9; C78.7 Acute hyponatremia E87.1 Hypokalemia E87.6 Renal vein occlusion I82.3 Ileus K56.7
[2021-06-27] MEDS: GABAPENTIN 300 MG CAP PO SCH (21:12)
[2021-06-28] MEDS: POTASSIUM CHLORIDE 40 MEQ in SODIUM CHLORIDE 0.9% 1000ML 1,000 ML IV SCH ×2 (01:04→10:58)
[2021-06-28] MEDS: CHECK fentaNYL PATCH PLACEMENT SCH ×2 (01:05→08:30)
[2021-06-28] MEDS: oxyCODONE HCL IR 5 MG TAB (IMMEDIATE RELEASE) PO PRN ×3 (02:19→12:09)
[2021-06-28 06:32] LABS: Basophils # (auto) 0.02 K/uL (0-0.2); Basophils % (auto) 0.3 %; Eosinophils # (auto) 0.12 K/uL (0-0.5); Hematocrit (blood only) 30.1 % (37-47); Hemoglobin 10.2 g/dL (12.0-16.0); Immature Granulocytes # (auto) 0.01 K/uL (0.00-0.02); Immature Granulocytes % (auto) 0.2 %; Lymphocytes # (auto) 0.76 K/uL (1.2-3.4); Mean Corpuscular Hemoglobin 28.5 pg (25-34); Mean Corpuscular Hgb Conc 33.9 g/dL (32-36); Mean Corpuscular Volume 84.1 fL (80-100); Monocytes # (auto) 0.47 K/uL (0.11-0.59); Neutrophils # (auto) 4.48 K/uL (1.4-6.5); Neutrophils % (auto) 76.5 %; Platelet Count 194 K/uL (130-400); RDW Coefficient of Variation 14.3 % (11.5-14.5); RDW Standard Deviation 44.4 fL (36.4-46.3); Red Blood Count 3.58 M/uL (4.2-5.4); White Blood Count 5.86 K/uL (4.8-10.8)
[2021-06-28 07:03] LABS: BUN Creatinine Ratio 5.5 (10-20); Creatinine Clr Calc Pharmacy 153.6 ml/min; Est GFR (African American) 137.9 ml/min
[2021-06-28] MEDS: METOCLOPRAMIDE HCL 10 MG TABLET PO SCH ×2 (08:19→12:06)
[2021-06-28] MEDS: PANCREAZE (LIPASE 10,500U) CAP PO SCH ×2 (08:19→12:06)
[2021-06-28] MEDS: PANTOprazole 40 MG in SYRINGE 0 ML IV SCH (08:20)
[2021-06-28] MEDS: POLYETHYLENE (MIRALAX) 17 GM PACK PO SCH (08:22)
[2021-06-28] MEDS ORDERED: fentaNYL 25 MCG/HR TDSY TD SCH (09:00)
--- NOTE | 2021-06-28 09:36 | XRay Report ---
KUB HISTORY: Generalized abdominal pain. Pancreatic cancer. ?ileus COMPARISON: Chest and abdominal series 06/17/2021. Abdomen and pelvis CT 06/25/2021. FINDINGS: A metallic common bile duct stent is unchanged in position. Moderate well-formed stool seen within the colon. No dilated loops of bowel to suggest an obstruction or ileus. No renal calculi. No ureteral calculi. No pneumoperitoneum or pneumatosis. IMPRESSION: 1. No dilated loops of bowel to suggest obstruction or ileus. 2. Moderate well-formed stool seen within the colon. 3. Metallic common bile duct stent is unchanged in position. ACT 112: Negative or not required by law. Electronically signed by: Cornelius Khan M.D. 06/28/2021 9:35 AM
--- NOTE | 2021-06-28 13:58 | Gastroenterology Progress Note ---
Date of Service June 28, 2021 Assessment & Plan (1) Ileus: Plan: Clinically improving (no further nausea/vomiting and no abdominal pain today). Still with constipation on imaging. Advance diet as tolerated. Continue gentle laxatives - currently on Miralax BID. Admission and Anticipated Discharge Date Admission Date: June 25, 2021 Supervising Physician Co-Signing Physician Notes Attending attestation I have seen, examined this patient, and agree with the findings and above by our mid-level provider AMY Coyne, with the following additions: -Patient doing well, hemoglobin is increased without intervention. Tolerating diet will sign off. Subjective 70 yr female metastatic pancreatic cancer Admitted with abd pain, CT with jejunal dilation on 06/24. KUB this morning w/o small or large bowel distention. There was moderate amt of stool in the colon. Pt "feels better." Review of Systems Review of Systems: ROS: Gen: Denies weakness, fevers, weight loss Eyes: No eye redness, or pain, no recent vision changes Resp: No SOB, no cough Cardio: No palpitations/irregular beats, no chest pain GI: As per HPI, otherwise (-) : Denies pain on urination Skin: No jaundice, itching or new rashes A total of 10 systems wer reviewed, all others (-). Physical Exam Constitutional: well developed, well nourished and cooperative Eyes: PERRL, conjunctivae normal, anicteric sclerae Neck: trachea midline, no thyromegaly Respiratory: normal respiratory effort, lungs clear to auscultation Cardiovascular: RRR, no murmur, no edema Gastrointestinal (Abdomen): Abdomen mildly distended, hyperactive BS present throughout. Non tender on palpation. Skin: no rashes, warm and dry normal turgor Neurologic: PERRL, EOMI, accommodation nl, no face palsy, no dysarthria awake; not confused Psychiatric: A+Ox3, euthymic affect Orientation: alert, oriented x 3 and cooperative Results & Data ([facility]) Vital Signs (Past 12 Hours) Vital Signs Temp Pulse Pulse Resp BP Pulse Ox 06/28/21 12:00 37 C 74 18 135/76 97 06/28/21 08:00 37 C 75 78 18 114/74 96 06/28/21 05:23 79 06/28/21 03:18 36.8 C 66 16 136/70 97 Laboratory Results WBC 5, HHb 10, Hct 30, Plts 194, Na 127, K 4.0, CL 95, CO2 27, BUN 2, Ct 0.29, glucose 141. Diagnostic Findings KUB 06/28/21: 1. No dilated loops of bowel to suggest obstruction or ileus. 2. Moderate well-formed stool seen within the colon. 3. Metallic common bile duct stent is unchanged in position. CTAP w IV 06/25/21: 1. A few distended loops of small bowel are seen without yazmin dilation, this may represent ileus or enteritis but is unlikely to represent obstruction. 2. Pancreatic head mass with dilated pancreatic duct and biliary stent in place with resulting pneumobilia. 3. Additional findings as above.
[2021-06-28] MEDS ORDERED: METHYLNALTREXONE BROMIDE 12 MG/0.6 ML VIAL SQ STA (14:11)
--- NOTE | 2021-06-28 17:06 | Hospitalist Progress Note ---
Date of Service June 28, 2021 Assessment & Plan (1) Acute GI bleeding: Plan: Gustavo Hernández is a 70-year-old female with a past medical history of pancreatic cancer anticipating chemotherapy this week with a past history of biliary stenting who presented with 2 days of vomiting and who was admitted for concern of GI bleed after hemoglobin dropped from 10.5-8.7 over 3 days with fecal occult positive. Acute blood loss anemia 2/2 GI bleeding Hemoglobin 06/22 10.5, acutely decreased 8.7 at admission Fecal occult blood positive No hematemesis/melena/bright red blood per rectum at time of assessment Hemoglobin improved to 10.4 on recheck, no ongoing signs of bleeding No abdominal pain on admission or at time of assessment Protonix 40 mg IV twice daily Trend H&H Meloxicam and Xarelto held on admission Gastroenterology consulted. No ongoing signs of GI bleeding, no additional work-up at this time. Potential ileus management as below. (2) Ileus: Plan: - GI consulted. Suspect nausea/vomiting exacerbated by potential ileus. Recommend serial abdominal imaging, BMP and correction daily, antiemetics, daily PPI and continue to follow Suspect potential narcotic induced partial/developing ileus due to fentanyl patch. Patient recently started on fentanyl patch, currently on 25 mcg dose, will decrease by half. Breakthrough pain control with 25 hydromorphone as needed Suspect patient's initial epigastric pain was improved with fentanyl, new pain appears consistent with constipation KUB ordered for 06/28 (3) Vomiting: Plan: CT A/P: A few distended loops of small bowel are seen without yazmin dilation, this may represent ileus or enteritis but is unlikely to represent obstruction. Pancreatic head mass with dilated pancreatic duct and biliary stent in place with resulting pneumobilia. ? 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 Mcfarland No acute management indicated at this time (6) Acute hyponatremia: Plan: Improved with fluids Continue NSS plus KCl 40 cc/h, clears (7) Hypokalemia: Plan: Repleted, IVF as above Normalized on 06/26 (8) Renal vein occlusion: Plan: Temporarily hold Xarelto due to GI bleed as above Plan: VTE Prophylaxis - scd Diet - clear liquid Disposition - admit to med/tele Admission and Anticipated Discharge Date Admission Date: June 25, 2021 Results & Data Results & Data ([facility]) Vital Signs (Past 12 Hours) Vital Signs Temp Pulse Pulse Resp BP Pulse Ox 06/28/21 14:38 37 C 74 18 135/76 97 06/28/21 12:00 37 C 74 18 135/76 97 06/28/21 08:00 37 C 75 78 18 114/74 96 06/28/21 05:23 79 PG Care Time/CCT Total # of Minutes Spent Total Time Spent with Patient: Total time spent is greater than 50% in coordination of care (as documented) at patient's floor/unit and/or counseling patient: Coding Diagnoses Acute GI bleeding K92.2 Ileus K56.7 Vomiting R11.10 Epigastric pain R10.13 Malignant neoplasm of pancreas metastatic to liver C25.9; C78.7 Acute hyponatremia E87.1 Hypokalemia E87.6 Renal vein occlusion I82.3
--- NOTE | 2021-06-28 17:11 | Discharge Summary ---
Date of Service June 28, 2021 Admission HPI Per Admitting Provider Gustavo Hernández is a 70 year old female with who presents to the ER with vomiting for the last 2 days. and patient tell me this is new regarding her illness and she has not had this problem previously even when she was on more chemotherapy. Although is notably on metoclopramide and ondansetron suggesting she has had problems in the past. She also notes epigastric pain for the last 3 weeks after starting meloxicam ?4-8 weeks ago for arthritis pain. Currently planning on chemotherapy possibly starting again next week. Unfortunately a recent PET scan showed significant malignant spread of her pancreatic cancer. Due to her abdominal pain she takes oxycodone which was recently increased to 10mg and she reports starting a Fentanyl patch 3 days ago. In ER she was noted to have a hemoglobin of 8.7 from 10.5 just 3 days prior. Fecal occult blood was positive. She denies any melena or bright red blood in her stool. She has been having BM but does reports having problems with constipation. She had 2 normal BM yesterday. Abdominal pain is no worse than usual. LFTs and lipase were relatively unremarkable. CT A/P showed ileus and pancreatic head mass with dilated pancreatic duct and biliary stent in place. She was referred to medicine for admission and ongoing management of GI bleed. Principal Diagnosis Mild GI bleed Narcotic-induced ileus Discharge Exam Constitutional WD/WN, vitals as above Eyes EOM intact bilaterally; no conjunctival abnormality ENMT external ear and nose normal, oropharynx normal Neck trachea midline, no thyromegaly normal visual inspection Respiratory normal respiratory effort, lungs clear to auscultation no respiratory distress Cardiovascular RRR, no murmur, no edema Gastrointestinal (Abdomen) Inspection/Auscultation: abdomen normal to inspection; abdomen not distended Musculoskeletal no cyanosis or clubbing, extremities motor strength 5/5 Skin no rashes, warm and dry Neurologic moves all extremities and awake Psychiatric Orientation: alert, oriented to person and cooperative Discharge Data Allergies Allergy/AdvReac Type Severity Reaction Status Date / Time No Known Allergies Allergy Unverified 06/25/21 15:06 Consultations 06/25/21 19:20 Consult Gastroenterology Routine Ordered Studies 06/25/21 12:45 CT abd pelvis wo con Stat Hospital Course (1) Acute GI bleeding: Gustavo Hernández is a 70-year-old female with a past medical history of pancreatic cancer anticipating chemotherapy this week with a past history of biliary stenting who presented with 2 days of vomiting and who was admitted for concern of GI bleed after hemoglobin dropped from 10.5-8.7 over 3 days with fecal occult positive. Acute blood loss anemia 2/2 GI bleeding Hemoglobin 06/22 10.5, acutely decreased 8.7 at admission Fecal occult blood positive No hematemesis/melena/bright red blood per rectum at time of assessment Hemoglobin improved to 10.4 on recheck, no ongoing signs of bleeding No abdominal pain on admission or at time of assessment Protonix 40 mg IV twice daily Trend H&H Meloxicam and Xarelto held on admission Gastroenterology consulted. No ongoing signs of GI bleeding, no additional work-up at this time. Potential ileus management as below. -> Discharge on PPI PO daily and holding Xarelto and meloxicam until seen by oncology. Confirmed with GI prior to d/c. (2) Ileus: - GI consulted. Suspect nausea/vomiting exacerbated by potential ileus. Recommend serial abdominal imaging, BMP and correction daily, antiemetics, daily PPI and continue to follow Suspect potential narcotic induced partial/developing ileus due to fentanyl patch. Patient recently started on fentanyl patch, currently on 25 mcg dose, will decrease by half. Breakthrough pain control with 25 hydromorphone as needed Suspect patient's initial epigastric pain was improved with fentanyl, new pain appears consistent with constipation KUB ordered for 06/28 -> No indication of ileus or SBO. - Tolerated diet on 06/28. - Discharged after given 1 dose of Relistor to aid in opioid-induced constipation. Recommended regular bowel regimen for 1 soft BM per day. (3) Vomiting: CT A/P: A few distended loops of small bowel are seen without yazmin dilation, this may represent ileus or enteritis but is unlikely to represent obstruction. Pancreatic head mass with dilated pancreatic duct and biliary stent in place with resulting pneumobilia. ? 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 Mcfarland No acute management indicated at this time (6) Acute hyponatremia: Improved with fluids Continue NSS plus KCl 40 cc/h, clears (7) Hypokalemia: Repleted, IVF as above Normalized on 06/26 (8) Renal vein occlusion: Temporarily hold Xarelto due to GI bleed as above VTE Prophylaxis - scd Diet - clear liquid Disposition - admit to med/tele Total Time Total Time Spent Total Time Spent (In Minutes): 35 Discharge Plan Discharge Items Patient Disposition: Home - Self-Care Reason For Visit: ACUTE GI BLEED Discharge Diagnosis: Acute GI bleed; possible ileus from narcotics Activity: Resume your previous activity Non-emergency contact: Primary Care Provider and Oncologist Call non-emergency contact if: your symptoms worsen Follow-up/Referrals: Rosina Bocanegra MD [Physician] - (If you have any interest in talking with palliative care to discuss "big picture" ideas like continuing or stopping cancer treatment, Dr. Bocanegra would be happy to see you.) Griselda Fair D.O. [Primary Care Provider] - (PLEASE CALL YOUR PRIMARY CARE PROVIDER TO SET UP DISCHARGE FOLLOW-UP APPOINTMENT) Diet: Low Fat Addtl Attending Provider Instructions: Ms. Hernández, You were admitted to the hospital with concern for GI bleeding. Luckily, there was no major bleed, and your blood levels (hemoglobin) were stable. The GI team felt you were ready to go home. You also had some trouble with slow bowels that is probably due to the narcotics you have to take for pain. Please Take Miralax and/or senna every day to aim to have 1 soft bowel movement per day. For your Xarelto and meloxicam, please hold them until you see Dr. Mcfraland in the office. We would not want you to suffer another bleeding event. You may need to hold these for about a week or so. If you have any interest in talking with palliative care to discuss "big picture" ideas like continuing or stopping cancer treatment, Dr. Bocanegra would be happy to see you. She could also help improve your symptoms such as the stomach issues you've been having. Pending Studies at Discharge: No Stand-Alone Forms: My [employer], Smoking Cessation Medications and DC Order Prescriptions: New oxycodone 10 mg tablet 10 mg PO Q4H PRN (Reason: pain) Qty: 30 RF: 0 fentanyl 25 mcg/hr Patch 72 Hour 25 mcg transdermal Q3D Qty: 5 RF: 0 polyethylene glycol 3350 [Miralax] 17 gram Powder In Packet 17 g PO BID Qty: 30 RF: 0 pantoprazole 40 mg tablet,delayed release (DR/EC) 40 mg PO DAILY Qty: 30 RF: 0 Continued gabapentin [Neurontin] 300 mg capsule 300 mg PO HS RF: 0 metoclopramide HCl [Reglan] 10 mg tablet 10 mg PO TIDM RF: 0 Creon 36,000-114,000- 180,000 unit capsule,delayed release(DR/EC) 1 cap PO TIDM RF: 0 prednisone 10 mg tablet 10 mg PO DAILY RF: 0 ondansetron HCl 4 mg tablet 4 mg PO TID RF: 0 docusate sodium [Dulcolax Stool Softener (dss)] 100 mg Capsule 100 mg PO DAILY RF: 0 Discontinued meloxicam [Mobic] 15 mg tablet 15 mg PO DAILY RF: 0 oxycodone [Roxicodone] 5 mg tablet 5 mg PO Q6H PRN (Reason: Pain) RF: 0 fentanyl 12 mcg/hr patch 72 hour 12 mcg topical Q72H RF: 0 Xarelto 15 mg tablet 15 mg PO BID RF: 0 Discharge Orders: Discharge Order (Routine); Ordered 06/28/21 Ordered By: Chuy Mckeon Admission Data Admit Date/Time: 06/25/21 17:31 Attending Provider: Chuy Mckeon Admit Provider: Dallas Shah Primary Care Provider: Griselda Fair Other Providers: Thania Arora Other Interventions: Discharge Summary Assessment (RN) Last Done: 06/28/21 14:38 Coding Level of Care Code D/C DAY MANAGEMENT >30 MINS Diagnoses Acute GI bleeding K92.2 Ileus K56.7 Vomiting R11.10 Epigastric pain R10.13 Malignant neoplasm of pancreas metastatic to liver C25.9; C78.7 Acute hyponatremia E87.1 Hypokalemia E87.6 Renal vein occlusion I82.3
== END 2021-06-28 15:55 | disposition home or self-care (01) | DRG 378 ==
LOC: ED 12:14 → SUATTDRO 17:31 → 2S 17:31 → 2N 06-27 18:10

== ENCOUNTER 2021-07-07 01:12 | Inpatient (IN) ==
[2021-07-07] MEDS ORDERED: HYDROmorphone INJ 0.5 MG/0.5 ML SYR IV STA (01:56)
[2021-07-07] MEDS ORDERED: ONDANSETRON INJ 2 MG/ML 2 ML VIAL IV STA (01:56)
[2021-07-07] MEDS ORDERED: SODIUM CHLORIDE 0.9% 500 ML IV ONE (02:25)
--- NOTE | 2021-07-07 02:25 | Emergency Department Note ---
Impression & Plan Acute hyponatremia, Abdominal ascites Admit to the [facility] ED Provider Note NAME: MARTIR HERMAN AGE: 70 SEX: F ARRIVES VIA: Walk-In INFORMANT: Patient and her daughter ED PROVIDER(S): Chrissy Regalado DO CHIEF COMPLAINT: Abdominal pain and vomiting PLAN: Disposition: Admit to the [facility] Condition: Guarded MEDICAL DECISION MAKING: This is a 62-year-old female patient with a history of metastatic pancreatic cancer who presents to the emergency department with diffuse abdominal pain and vomiting. Despite taking her pain medications and wearing her fentanyl patch, her pain is uncontrolled. The patient was given IV Dilaudid here in the emergency department with moderate relief of her symptoms. Laboratory studies show extreme hyponatremia with a s odium of 122. CT scan shows worsening ascites. [facility] for [facility] care. Triage Nursing notes reviewed and agree with them. Additional history obtained from her daughter who is at the bedside Prior medical records reviewed Vital Signs: reviewed and unremarkable Differential diagnosis: Small bowel obstruction, perforated viscus, worsening ascites, electrolyte abnormality, dehydration, ER treatment provided: IV normal saline IV Zofran IV Dilaudid Diagnostics interpreted by me: Cardiac Monitoring: Normal sinus rhythm at a rate of 91 Laboratory studies: See below Imaging studies: As per radiology CT abdomen pelvis: See report HPI: 70/F arrives for evaluation of abdominal pain and vomiting. The patient has had increasing abdominal pain over the past couple days and began to vomit tonight which seemed to help a little bit. Throughout the day today, the patient developed some pain in her upper back which was new for her. She is currently taking 10 mg of oxycodone along with a 25 mcg fentanyl patch but this has not been helping her pain. She did try taking some Tylenol without relief. The daughter explains that the pain became unbearable tonight and they brought her to the hospital. She also notes increasing lower extremity swelling over the past couple of days for which she has been trying to elevate her legs. ROS: See above HPI for pertinent positives & negatives. A total of 10 systems reviewed and were otherwise negative. PAST MEDICAL HISTORY:See Below PAST SURGICAL HISTORY:See Below FAMILY HISTORY:See Below SOCIAL HISTORY:See Below HOME MEDICATIONS:See list ALLERGIES:None VITALS:See Below PHYSICAL EXAMINATION: HEENT: Head - normocephalic and atraumatic. Pupils are equal, round, and reactive to light. Extraocular eye muscles are intact, and sclera are anicteric. Nose - moist nasal mucosa without discharge. Mouth - moist buccal mucosa. Oropharynx is nonerythematous and there is no tonsillar exudate or edema noted. Neck: Supple; no JVD or cervical lymphadenopathy Heart: Regular rate and rhythm. There is a normal S1 and S2 with no murmurs, clicks, or gallops appreciated. Lungs: Clear to auscultation bilaterally with no wheezes, rales, or rhonchi. Abdomen: Soft, moderately distended with tenderness about the umbilicus. She has normal bowel sounds. There are no palpable pulsatile masses or hepatosplenomegaly. There is no guarding, rigidity, or rebound noted. Extremities: No evidence of cyanosis, clubbing, or edema. There are easily palpable peripheral pulses. Skin: Pale, warm and dry with good turgor and no rashes. ED COURSE: Times/Reassessments: 0140: The patient was evaluated in room C1. A complete history and physical was performed. Her port was accessed. She was given IV Zofran and IV Dilaudid. She was bolused with IV normal saline. An order was placed for continuous cardiac monitoring. The patient was in a normal sinus rhythm at a rate of 91. She will go for CT scan of the abdomen/pelvis. Upon repeat evaluation, the patient was resting more comfortably. She was hemodynamically stable. I reviewed the results of the CT scan with her and her daughter. I also reviewed the results of the laboratory studies and explained that she was extremely hyponatremic and require readmission to the hospital. I discussed the case with the [facility] hospitalist group. Chrissy Regalado DO Past Med/Surg History Medical History Abdominal pain History of biliary stent insertion Pancreatic cancer Transaminitis Social History Smoking Status: Never smoker Hx Alcohol Use: No Hx Substance Use: No Preferred Language: Niuean Communication Ability: Effective Taper And Floater Required: No Beliefs That Will Affect Care: None Current Living Situation: Spouse Feels Safe at Home: Yes Assistive Devices: Glasses Allergies Allergies Allergy/AdvReac Type Severity Reaction Status Date / Time No Known Allergies Allergy Unverified 07/07/21 03:04 Home Meds Home Medications Medication Instructions Recorded Confirmed gabapentin 300 mg capsule 300 mg PO HS 06/17/21 07/07/21 (Neurontin) [id number] 1 cap PO TIDM 06/17/21 07/07/21 36,000-114,000-180,000 unit capsule,delay rel (Creon) metoclopramide HCl 10 mg tablet 10 mg PO TIDM 06/17/21 07/07/21 (Reglan) docusate sodium 100 mg capsule 100 mg PO DAILY 06/25/21 07/07/21 (Dulcolax Stool Softener (docusate)) prednisone 10 mg tablet 10 mg PO DAILY 06/25/21 07/07/21 ondansetron HCl 8 mg tablet 8 mg PO Q8 PRN 07/07/21 07/07/21 Previous Rx's Medication Instructions Recorded fentanyl 25 mcg/hr transdermal 25 mcg TRANSDERMAL Q3D #5 ea 06/28/21 patch oxycodone 10 mg tablet 10 mg PO Q4H PRN #30 tab 06/28/21 pantoprazole 40 mg tablet,delayed 40 mg PO DAILY #30 tab 06/28/21 release polyethylene glycol 3350 17 gram 17 g PO BID #30 ea 06/28/21 oral powder packet (Miralax) Results & Data (ED) Vital Signs Vital Signs - 24 hr 07/07/21 01:21 07/07/21 02:34 07/07/21 02:46 Temperature 36.6 C Temperature Source Temporal Artery Scan Pulse Rate 91 H 81 Pulse Rate [Apical] 80 Pulse Rate from SpO2 Sensor 81 Respiratory Rate 20 16 18 Respiratory Effort / Characteristics Non-Labored Spontaneous Non-Labored Spontaneous Respiratory Depth Normal Blood Pressure 119/71 122/61 Blood Pressure [Right Arm] 122/61 Blood Pressure Mean 87 81 Blood Pressure Mean [Right Arm] 81 Blood Pressure Position Sitting Pulse Oximetry 97 96 96 Oxygen Delivery Method Room Air Room Air Sepsis Recent Fever Within 48 Hours No Sepsis New/Unexplained Change in Mental Status No Sepsis Action Taken by Nursing No Action Required 07/07/21 03:19 07/07/21 03:30 07/07/21 04:00 Temperature Temperature Source Pulse Rate 78 85 Pulse Rate [Apical] 81 Pulse Rate from SpO2 Sensor 76 85 Respiratory Rate 16 14 Respiratory Effort / Characteristics Respiratory Depth Blood Pressure Blood Pressure [Right Arm] 131/67 Blood Pressure Mean Blood Pressure Mean [Right Arm] 88 Blood Pressure Position Pulse Oximetry 95 96 98 Oxygen Delivery Method Room Air Sepsis Recent Fever Within 48 Hours Sepsis New/Unexplained Change in Mental Status Sepsis Action Taken by Nursing 07/07/21 04:30 07/07/21 05:00 Temperature Temperature Source Pulse Rate 72 82 Pulse Rate [Apical] Pulse Rate from SpO2 Sensor 73 82 Respiratory Rate 17 19 Respiratory Effort / Characteristics Respiratory Depth Blood Pressure 125/51 L 140/68 Blood Pressure [Right Arm] Blood Pressure Mean 75 92 Blood Pressure Mean [Right Arm] Blood Pressure Position Pulse Oximetry 96 96 Oxygen Delivery Method Sepsis Recent Fever Within 48 Hours Sepsis New/Unexplained Change in Mental Status Sepsis Action Taken by Nursing Laboratory Data Result diagrams: 07/07/21 15:24 07/07/21 18:22 Lab Results 07/07/21 07/07/21 07/07/21 Range/Units 02:20 02:20 02:20 WBC 4.85 (4.8-10.8) K/uL RBC 3.23 L (4.2-5.4) M/uL Hgb 8.9 L (12.0-16.0) g/dL Hct 26.8 L (37-47) % MCV 83.0 (80-100) fL MCH 27.6 (25-34) pg MCHC 33.2 (32-36) g/dL RDW Std Deviation 42.4 (36.4-46.3) fL RDW Coeff of Fara 13.9 (11.5-14.5) % Plt Count 111 L (130-400) K/uL MPV 8.6 (7.4-10.4) fL Immature Gran % (Auto) 0.4 % Neut % (Auto) 83.8 % Lymph % (Auto) 7.6 % [place] % (Auto) 8.0 % Eos % (Auto) 0.2 % Baso % (Auto) 0.0 % Neut # (Auto) 4.06 (1.4-6.5) K/uL Lymph # (Auto) 0.37 L (1.2-3.4) K/uL [place] # (Auto) 0.39 (0.11-0.59) K/uL Eos # (Auto) 0.01 (0-0.5) K/uL Baso # (Auto) 0.00 (0-0.2) K/uL Immature Gran # (Auto) 0.02 (0.00-0.02) K/uL Tear Drop Cells 1+ Sodium 122 L (136-145) mmol/L Potassium 3.4 L (3.5-5.1) mmol/L Chloride 86 L (98-107) mmol/L Carbon Dioxide 28 (21-32) mmol/L Anion Gap 8.0 (3-11) BUN 5 L (7-18) mg/dl Creatinine 0.20 L (0.6-1.2) mg/dl Est Cr Clr Drug Dosing 222.7 ml/min Est GFR ( Amer) > 150.0 ml/min Est GFR (Non-Af Amer) 134.4 ml/min BUN/Creatinine Ratio 26.7 H (10-20) Glucose 149 H (70-99) mg/dl Osmolality 254 L (280-300) mOsm/kg Calcium 8.2 L (8.5-10.1) mg/dl Total Bilirubin 1.1 H (0.2-1) mg/dl AST 53 H (15-37) U/L ALT 44 (12-78) U/L Alkaline Phosphatase 707 H (45-117) U/L Total Protein 6.2 L (6.4-8.2) gm/dl Albumin 1.9 L (3.4-5.0) gm/dl Globulin 4.3 H (2.5-4.0) gm/dl Albumin/Globulin Ratio 0.4 L (0.9-2) Lipase 51 L (73-393) U/L Urine Color Urine Appearance (Clear) Urine pH (4.5-7.5) Ur Specific Carl[place] (1.000-1.030) Urine Protein (Negative) Urine Glucose (UA) (Negative) Urine Ketones (Negative) Urine Blood (Negative) Urine Nitrite (Negative) Urine Bilirubin (Negative) Urine Urobilinogen (Negative) Ur Leukocyte Esterase (Negative) Urine WBC (Auto) (0-5) /hpf Urine RBC (Auto) (0-4) /hpf U Hyaline Cast (Auto) (0-5) /lpf U Epithel Cells (Auto) (0-5) /lpf Urine Bacteria (Auto) (Negative) Urine Osmolality (500-800) mOsm/kg Ur Random Sodium mmol/L COVID-19 Eval Order SARS-CoV-2 (PCR) (Negative) 07/07/21 07/07/21 07/07/21 Range/Units 02:31 02:31 02:31 WBC (4.8-10.8) K/uL RBC (4.2-5.4) M/uL Hgb (12.0-16.0) g/dL Hct (37-47) % MCV (80-100) fL MCH (25-34) pg MCHC (32-36) g/dL RDW Std Deviation (36.4-46.3) fL RDW Coeff of Fara (11.5-14.5) % Plt Count (130-400) K/uL MPV (7.4-10.4) fL Immature Gran % (Auto) % Neut % (Auto) % Lymph % (Auto) % [place] % (Auto) % Eos % (Auto) % Baso % (Auto) % Neut # (Auto) (1.4-6.5) K/uL Lymph # (Auto) (1.2-3.4) K/uL [place] # (Auto) (0.11-0.59) K/uL Eos # (Auto) (0-0.5) K/uL Baso # (Auto) (0-0.2) K/uL Immature Gran # (Auto) (0.00-0.02) K/uL Tear Drop Cells Sodium (136-145) mmol/L Potassium (3.5-5.1) mmol/L Chloride (98-107) mmol/L Carbon Dioxide (21-32) mmol/L Anion Gap (3-11) BUN (7-18) mg/dl Creatinine (0.6-1.2) mg/dl Est Cr Clr Drug Dosing ml/min Est GFR ( Amer) ml/min Est GFR (Non-Af Amer) ml/min BUN/Creatinine Ratio (10-20) Glucose (70-99) mg/dl Osmolality (280-300) mOsm/kg Calcium (8.5-10.1) mg/dl Total Bilirubin (0.2-1) mg/dl AST (15-37) U/L ALT (12-78) U/L Alkaline Phosphatase (45-117) U/L Total Protein (6.4-8.2) gm/dl Albumin (3.4-5.0) gm/dl Globulin (2.5-4.0) gm/dl Albumin/Globulin Ratio (0.9-2) Lipase (73-393) U/L Urine Color Dark Yellow Urine Appearance Clear (Clear) Urine pH 6.5 (4.5-7.5) Ur Specific Carlton 1.015 (1.000-1.030) Urine Protein Trace H (Negative) Urine Glucose (UA) Trace H (Negative) Urine Ketones 3+ H (Negative) Urine Blood Negative (Negative) Urine Nitrite Negative (Negative) Urine Bilirubin Negative (Negative) Urine Urobilinogen Negative (Negative) Ur Leukocyte Esterase Negative (Negative) Urine WBC (Auto) 1-5 (0-5) /hpf Urine RBC (Auto) 0-4 (0-4) /hpf U Hyaline Cast (Auto) 1-5 (0-5) /lpf U Epithel Cells (Auto) 5-10 H (0-5) /lpf Urine Bacteria (Auto) Negative (Negative) Urine Osmolality 401 L (500-800) mOsm/kg Ur Random Sodium 6 mmol/L COVID-19 Eval Order SARS-CoV-2 (PCR) (Negative) 07/07/21 07/07/21 Range/Units 05:05 05:05 WBC (4.8-10.8) K/uL RBC (4.2-5.4) M/uL Hgb (12.0-16.0) g/dL Hct (37-47) % MCV (80-100) fL MCH (25-34) pg MCHC (32-36) g/dL RDW Std Deviation (36.4-46.3) fL RDW Coeff of Fara (11.5-14.5) % Plt Count (130-400) K/uL MPV (7.4-10.4) fL Immature Gran % (Auto) % Neut % (Auto) % Lymph % (Auto) % [place] % (Auto) % Eos % (Auto) % Baso % (Auto) % Neut # (Auto) (1.4-6.5) K/uL Lymph # (Auto) (1.2-3.4) K/uL [place] # (Auto) (0.11-0.59) K/uL Eos # (Auto) (0-0.5) K/uL Baso # (Auto) (0-0.2) K/uL Immature Gran # (Auto) (0.00-0.02) K/uL Tear Drop Cells Sodium (136-145) mmol/L Potassium (3.5-5.1) mmol/L Chloride (98-107) mmol/L Carbon Dioxide (21-32) mmol/L Anion Gap (3-11) BUN (7-18) mg/dl Creatinine (0.6-1.2) mg/dl Est Cr Clr Drug Dosing ml/min Est GFR ( Amer) ml/min Est GFR (Non-Af Amer) ml/min BUN/Creatinine Ratio (10-20) Glucose (70-99) mg/dl Osmolality (280-300) mOsm/kg Calcium (8.5-10.1) mg/dl Total Bilirubin (0.2-1) mg/dl AST (15-37) U/L ALT (12-78) U/L Alkaline Phosphatase (45-117) U/L Total Protein (6.4-8.2) gm/dl Albumin (3.4-5.0) gm/dl Globulin (2.5-4.0) gm/dl Albumin/Globulin Ratio (0.9-2) Lipase (73-393) U/L Urine Color Urine Appearance (Clear) Urine pH (4.5-7.5) Ur Specific [place] (1.000-1.030) Urine Protein (Negative) Urine Glucose (UA) (Negative) Urine Ketones (Negative) Urine Blood (Negative) Urine Nitrite (Negative) Urine Bilirubin (Negative) Urine Urobilinogen (Negative) Ur Leukocyte Esterase (Negative) Urine WBC (Auto) (0-5) /hpf Urine RBC (Auto) (0-4) /hpf U Hyaline Cast (Auto) (0-5) /lpf U Epithel Cells (Auto) (0-5) /lpf Urine Bacteria (Auto) (Negative) Urine Osmolality (500-800) mOsm/kg Ur Random Sodium mmol/L COVID-19 Eval Order Covid19 at [facility] SARS-CoV-2 (PCR) NEGATIVE (Negative) Administered Medications Lipase/Protease/Amylase (Pancreaze (Lipase 10,500u) Cap) 1 cap PO TIDM ABRAHAM Stop: 11/13/21 07:59 Last Admin: 07/07/21 20:14 Dose: 1 cap Documented by: [id number] Admin: 07/07/21 12:11 Dose: 1 cap Documented by: [id number] Admin: 07/07/21 08:34 Dose: 1 cap Documented by: [id number] Docusate Sodium (Docusate Sodium 100 Mg Cap) 100 mg PO BID ABRAHAM Stop: 08/06/21 08:59 Last Admin: 07/07/21 20:14 Dose: 100 mg Documented by: [id number] Admin: 07/07/21 08:34 Dose: 100 mg Documented by: [id number] Fentanyl (Fentanyl 50 Mcg/Hr Tdsy) 50 mcg TD Q3D@0600 ABRAHAM Stop: 07/21/21 05:59 Last Admin: 07/07/21 05:53 Dose: 50 mcg Documented by: [id number] Gabapentin (Gabapentin 300 Mg Cap) 300 mg PO HS ABRAHAM Stop: 08/06/21 20:59 Last Admin: 07/07/21 20:15 Dose: 300 mg Documented by: [id number] Hydrocortisone Sodium (Succinate 100 mg/ Syringe) 2 mls @ 4 mls/min IV Q8H ABRAHAM Stop: 08/06/21 08:29 Last Admin: 07/07/21 17:16 Dose: 4 mls/min Documented by: [id number] Admin: 07/07/21 08:35 Dose: 4 mls/min Documented by: [id number] Ceftriaxone Sodium 2,000 mg/ (Dextrose) 70 mls @ 140 mls/hr IV DAILY ABRAHAM; Protocol Stop: 07/17/21 14:44 Last Infusion: 07/07/21 17:16 Dose: 0 mls/hr Documented by: [id number] Admin: 07/07/21 16:40 Dose: 140 mls/hr Documented by: [id number] Metoclopramide HCl (Metoclopramide Hcl 10 Mg Tablet) 10 mg PO TIDM ABRAHAM Stop: 08/06/21 07:59 Last Admin: 07/07/21 21:19 Dose: 10 mg Documented by: [id number] Admin: 07/07/21 12:11 Dose: 10 mg Documented by: [id number] Admin: 07/07/21 08:35 Dose: 10 mg Documented by: [id number] Miscellaneous (Check Fentanyl Patch Placement) 1 ea N/A QS ABRAHAM Stop: 08/06/21 07:59 Last Admin: 07/07/21 16:41 Dose: 1 ea Documented by: [id number] Admin: 07/07/21 07:10 Dose: 1 ea Documented by: [id number] Miscellaneous (Fentanyl Patch Remove & Waste) 1 ea N/A Q3D@0559 ABRAHAM Stop: 08/06/21 05:58 Last Admin: 07/07/21 05:52 Dose: 1 ea Documented by: [id number] Cosigned by: [id number] Pantoprazole Sodium (Pantoprazole 40 Mg Tab) 40 mg PO DAILY ABRAHAM Stop: 08/06/21 08:59 Last Admin: 07/07/21 08:35 Dose: 40 mg Documented by: [id number] Polyethylene Glycol (Polyethylene (Miralax) 17 Gm Pack) 17 gm PO BID ABRAHAM Stop: 08/06/21 08:59 Last Admin: 07/07/21 20:15 Dose: 17 gm Documented by: [id number] Admin: 07/07/21 08:35 Dose: 17 gm Documented by: [id number] Discontinued Medications Heparin Sodium (Beef Lung) (Heparin 10 Unit/Ml 5 Ml Flush) Confirm Administered Dose 5 ml FLUSH .STK-MED ONE Stop: 07/07/21 09:28 Last Admin: 07/07/21 09:29 Dose: 5 ml Documented by: [id number] Hydrocortisone Sodium Succinate (Hydrocortisone Sod Succinate 100 Mg/2 Ml Vial) 100 mg IV Q8H ABRAHAM Stop: 08/06/21 05:10 Last Admin: 07/07/21 05:26 Dose: 100 mg Documented by: [id number] Hydromorphone HCl (Hydromorphone Inj 0.5 Mg/0.5 Ml Syr) 0.5 mg IV NOW STA Stop: 07/07/21 01:57 Last Admin: 07/07/21 02:18 Dose: 0.5 mg Documented by: [id number] Hydromorphone HCl (Hydromorphone Inj 1 Mg/Ml Syringe) 1 mg IV Q4H PRN PRN Reason: Breakthrough Pain Stop: 07/21/21 05:10 Last Admin: 07/07/21 09:28 Dose: 1 mg Documented by: [id number] Sodium Chloride (Nss) 500 mls @ 999 mls/hr IV .Q31M ONE Stop: 07/07/21 02:55 Last Infusion: 07/07/21 03:33 Dose: 0 mls/hr Documented by: [id number] Admin: 07/07/21 02:44 Dose: 999 mls/hr Documented by: [id number] Ioversol (Optiray 320 100ml) 100 ml IV ONCE ONE Stop: 07/07/21 03:05 Last Admin: 07/07/21 03:04 Dose: 93 ml Documented by: [id number] Ondansetron HCl (Ondansetron Inj 2 Mg/Ml 2 Ml Vial) 4 mg IV NOW STA Stop: 07/07/21 01:57 Last Admin: 07/07/21 02:18 Dose: 4 mg Documented by: [id number] Discharge Plan Visit Data Chief Complaint: Abdominal Pain Stated Complaint: ABD PAIN - PANCREATIC CANCER ED Provider: Chrissy Regalado Discharge Problem: Acute hyponatremia, Abdominal ascites Patient Disposition: Admitted As Inpatient Discharge Instructions Interventions: ED Discharge Assessment Last Done: 07/07/21 07:30 Discharge Problem: Abdominal ascites Qualifiers: Ascites type: malignant Qualified Code(s): R18.0 - Malignant ascites
[2021-07-07 02:34] LABS: Eosinophils # (auto) 0.01 K/uL (0-0.5); Eosinophils % (auto) 0.2 %; Hematocrit (blood only) 26.8 % (37-47); Hemoglobin 8.9 g/dL (12.0-16.0); Immature Granulocytes # (auto) 0.02 K/uL (0.00-0.02); Immature Granulocytes % (auto) 0.4 %; Lymphocytes # (auto) 0.37 K/uL (1.2-3.4); Lymphocytes % (auto) 7.6 %; Mean Corpuscular Hemoglobin 27.6 pg (25-34); Mean Corpuscular Hgb Conc 33.2 g/dL (32-36); Mean Platelet Volume 8.6 fL (7.4-10.4); Monocytes # (auto) 0.39 K/uL (0.11-0.59); Neutrophils # (auto) 4.06 K/uL (1.4-6.5); Neutrophils % (auto) 83.8 %; Platelet Count 111 K/uL (130-400); RDW Coefficient of Variation 13.9 % (11.5-14.5); RDW Standard Deviation 42.4 fL (36.4-46.3); Red Blood Count 3.23 M/uL (4.2-5.4); White Blood Count 4.85 K/uL (4.8-10.8)
[2021-07-07 02:45] LABS: Appearance Urine Clear (Clear); Bacteria Urine Automated Negative (Negative); Bilirubin Urine Negative (Negative); Blood Urine Negative (Negative); Color Urine Dark Yellow; Glucose Urine UA Trace (Negative); Ketones Urine 3+ (Negative); Leukocyte Esterase Urine Negative (Negative); Nitrite Urine Negative (Negative); Protein Urine Trace (Negative); RBC Urine Automated 0-4 /hpf (0-4); Specific Gravity Urine 1.015 (1.000-1.030); Urobilinogen Urine Negative (Negative); pH Urine 6.5 (4.5-7.5)
[2021-07-07 02:52] LABS: Alanine Aminotransferase 44 U/L (12-78); Albumin Level 1.9 gm/dl (3.4-5.0); Aspartate Aminotransferase 53 U/L (15-37); BUN Creatinine Ratio 26.7 (10-20); Blood Urea Nitrogen 5 mg/dl (7-18); Calcium 8.2 mg/dl (8.5-10.1); Carbon Dioxide 28 mmol/L (21-32); Chloride 86 mmol/L (98-107); Creatinine Clr Calc Pharmacy 222.7 ml/min; Est GFR (African American) > 150.0 ml/min; Est GFR (Non-African American) 134.4 ml/min; Glucose 149 mg/dl (70-99); Lipase 51 U/L (73-393); Potassium 3.4 mmol/L (3.5-5.1); Sodium 122 mmol/L (136-145)
[2021-07-07 02:54] LABS: Albumin Globulin Ratio 0.4 (0.9-2); Alkaline Phosphatase 707 U/L (45-117); Bilirubin,Total 1.1 mg/dl (0.2-1); Globulin 4.3 gm/dl (2.5-4.0); Total Protein 6.2 gm/dl (6.4-8.2)
[2021-07-07] MEDS ORDERED: OPTIRAY 320 100ml IV ONE (03:04)
[2021-07-07 03:06] LABS: Tear Drop Cells 1+
[2021-07-07] MEDS ORDERED: HYDROCORTISONE SOD SUCCINATE 100 MG/2 ML VIAL IV SCH (05:11)
[2021-07-07] MEDS ORDERED: HYDROmorphone INJ 1 MG/ML SYRINGE IV PRN ×2 (05:11→14:45)
[2021-07-07] MEDS ORDERED: fentaNYL 25 MCG/HR TDSY TD SCH (05:11)
[2021-07-07] MEDS ORDERED: oxyCODONE HCL IR 5 MG TAB (IMMEDIATE RELEASE) PO PRN (05:11)
--- NOTE | 2021-07-07 05:15 | History & Physical Report ---
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 Metastatic pancreatic cancer with abdominal ascites: Presented with worsening abdominal pain and ascites. Currently undergoing chemotherapy at the direction of Dr. Mcfarland. CTAP unfortunately showed new liver mets in the lateral aspect of the right lobe of the liver, as well as a developing biloma. Moderate volume ascites also noted. Therapeutic paracentesis ordered. No concern at this time for SBP. Pain control as described below. Consult placed to Dr. Mcfarland. Uncontrolled pain: Patient at home is on Fentanyl patch 25mcg q3d, oxycodone 10mg q4h prn pain. Despite this regimen, patient has had worsening with inability to tolerate pain over the last 2 days. Will increase Fentanyl patch to 50mcg q3h, and add Dilaudid as needed for breakthrough pain. Consult placed to palliative care to assist with pain control. Home constipation regimen increased to account for increased narcotics; docusate BID and Miralax BID ordered and can titrate up as necessary. Last BM 07/05. Hyponatremia: History of, with most recent Na of 127 on discharge from [facility] on 06/28. Admitted today with Na 122. Received 500cc NSS bolus in the ER. Repeat BMP with urine and serum lytes/osms ordered to help clarify source of hyponatremia. Hold fluids until labs back. Serial BMPs, next ordered at noon. History of GI Bleed, renal vein occlusion: Was previously diagnosed with renal vein occlusion and placed on Xarelto therapy. Recently discharged on 06/28 from [facility] for GI Bleed; at that time had Xarelto held due to bleeding. Patient is currently not on anticoagulation. Hgb this admission of 8.9, down from 10.2 on 06/28. Consult placed to Dr. Mcfarland given worsening abdominal mets and ascites, as well as for clarification regarding anticoagulation. Daily CBC while admitted. Transfuse PRBCs if Hgb <7 or symptomatic anemia. Chronic steroid therapy: Patient is on chronic daily prednisone therapy. Given acute illness and hospitalization we will start stress dose steroids; Solu-Cortef 100 mg every 8 hours. Hypokalemia: Admitted with K of 3.4; will replete with IV and PO potassium chloride. Repeat BMP at noon. Code Status: DNR/DNI FEN: clear liquid diet; hold fluids while awaiting urine and serum lytes/osms DVT ppx: defer anticoagulation pending Heme/Onc consult Dispo: Med/Surg with Telemetry History of Present Illness Chief Complaint: abdominal pain Primary Care Provider: Griselda Fair 70 yo F Hx metastatic pancreatic cancer, renal vein occlusion, GI Bleed, hyponatremia presented to the ER for worsening abdominal pain and belly bloating. She reports that between chemo rounds 1 and 2 she started to feel somewhat worse with regard to her abdominal pain. She was able to control it with her home pain regimen including fentanyl patches every 3 days and oxycodone every 4 hours as needed for pain up until about 2 days ago. She noted that her abdomen was becoming more enlarged and she was having worsening of pain despite her pain meds at home. She does not report any fevers or chills, chest pain, shortness of breath. She does endorse poor oral intake over the last several days secondary to nausea and vomiting, abdominal pain. She also reports that at 1 point she was going up the stairs and felt somewhat lightheaded and leaned against her daughter. In the ER patient was noted to have hemoglobin of 8.9, platelets 111, sodium 122, K3.4, elevated alk phos and T bili (baseline), UA without evidence of infection, COVID-[address] abdomen and pelvis showed that patient has developed a 2 cm right lobe liver lesion new from previous imaging, as well as a suspected developing biloma. It also noted moderate in size ascites without loculation. Patient is currently undergoing chemotherapy under the direction of Dr. Mcfarland. Patient's greatest concern at this time is pain control as she is significantly uncomfortable despite home medications. In the ER she received NSS 500 cc bolus as well as hydromorphone IV. Allergies Allergy/AdvReac Type Severity Reaction Status Date / Time No Known Allergies Allergy Unverified 07/07/21 03:04 Home Medications Medication Instructions Recorded Confirmed Type gabapentin 300 mg capsule 300 mg PO HS 06/17/21 07/07/21 History (Neurontin) dffkvi-vvrynhzk-omvldix 1 cap PO TIDM 06/17/21 07/07/21 History 36,000-114,000-180,000 unit capsule,delay rel (Creon) metoclopramide HCl 10 mg tablet 10 mg PO TIDM 06/17/21 07/07/21 History (Reglan) docusate sodium 100 mg capsule 100 mg PO DAILY 06/25/21 07/07/21 History (Dulcolax Stool Softener (docusate)) prednisone 10 mg tablet 10 mg PO DAILY 06/25/21 07/07/21 History fentanyl 25 mcg/hr transdermal 25 mcg TRANSDERMAL Q3D #5 ea 06/28/21 07/07/21 Rx patch oxycodone 10 mg tablet 10 mg PO Q4H PRN #30 tab 06/28/21 07/07/21 Rx pantoprazole 40 mg tablet,delayed 40 mg PO DAILY #30 tab 06/28/21 07/07/21 Rx release polyethylene glycol 3350 17 gram 17 g PO BID #30 ea 06/28/21 07/07/21 Rx oral powder packet (Miralax) ondansetron HCl 8 mg tablet 8 mg PO Q8 PRN 07/07/21 07/07/21 History Past Med/Surg History Medical History Abdominal pain History of biliary stent insertion Pancreatic cancer Transaminitis Social History Smoking Status: Never smoker Hx Alcohol Use: No Hx Substance Use: No Preferred Language: Greenlandic Communication Ability: Effective Radio Installer Required: No Beliefs That Will Affect Care: None Current Living Situation: Spouse Feels Safe at Home: Yes Assistive Devices: Glasses Review of Systems Review of Systems: All systems reviewed & are unremarkable except as noted in HPI & below Constitutional: + malaise; no fever and no chills Respiratory: no cough and no dyspnea Cardiovascular: no chest pain, no palpitations and no edema Gastrointestinal: + abdominal pain and + constipation; no diarrhea/loose stools Genitourinary: no dysuria and no hematuria Physical Exam Constitutional: WD/WN, vitals as above Eyes: PERRL, conjunctivae normal, anicteric sclerae ENMT: external ear and nose normal, oropharynx normal Neck: normal visual inspection Respiratory: normal respiratory effort, lungs clear to auscultation Cardiovascular: RRR, no murmur, no edema Gastrointestinal (Abdomen): Normal bowel sounds, abdomen soft but moderately distended, diffuse mild tenderness to palpation Musculoskeletal: no cyanosis or clubbing, extremities motor strength 5/5 Skin: no rashes, warm and dry Neurologic: AAOx3, normal speech. Bilateral UE, LE, and face without sensory or motor deficits. Psychiatric: A+Ox3, euthymic affect Results & Data Results & Data ([facility]) Vital Signs (Past 12 Hours) Vital Signs Temp Pulse Pulse Resp BP BP Pulse Ox 07/07/21 05:00 82 19 140/68 96 07/07/21 04:30 72 17 125/51 L 96 07/07/21 04:00 85 14 98 07/07/21 03:30 78 16 96 07/07/21 03:19 81 131/67 95 07/07/21 02:46 81 18 122/61 96 07/07/21 02:34 80 16 122/61 96 07/07/21 01:21 36.6 C 91 H 20 119/71 97 Code Status & VTE Plan VTE Prophylaxis Plan VTE Prophylaxis will be ordered: Yes Supervising Physician Co-Signing Physician Notes Attending addendum: I have physically seen this patient, have supervised the medical residents activities, and agree with the H&P unless as otherwise noted. Assessment and Plan: Metastatic pancreatic cancer/increased abdominal pain/ascites- Presently undergoing chemotherapy New liver mets noted on CT Increasing ascites noted Order ultrasound-guided therapeutic paracentesis Consult with her oncologist Dr. Mcfarland Hyponatremia- Sodium 122 upon admission, with most recent from discharge on 06/28 being 127 Check serum osmolality and urine osmolality Likely secondary to volume overload Further management after return of labs Remaining orders and notations as noted Resident Activity Tracking Resident Involvement: Resident Care Provided Care Provided: Adult Hospital Medicine (1) Abdominal pain Abdominal location: left upper quadrant Qualified Code(s): R10.12 - Left upper quadrant pain
[2021-07-07] MEDS ORDERED: fentaNYL 50 MCG/HR TDSY TD SCH (06:00)
[2021-07-07] MEDS: CHECK fentaNYL PATCH PLACEMENT SCH ×2 (07:10→16:41)
--- NOTE | 2021-07-07 07:35 | CT Scan Report ---
CT OF THE ABDOMEN AND PELVIS WITH CONTRAST CLINICAL HISTORY: Abdominal pain. Pancreatic cancer. Evaluate for small bowel obstruction. COMPARISON STUDY: CT of the abdomen and pelvis June 25, 2021. KUB June 28, 2021. TECHNIQUE: Following IV administration of 93 mL of Optiray, axial images of the abdomen and pelvis we re obtained from the lung bases to the proximal femurs. Images were reviewed in the axial, sagittal, and coronal planes. IV contrast was administered without complication. Automated exposure control wa s utilized for the study. A dose lowering technique was utilized adhering to the principles of ALARA . CT DOSE: 301.99 mGy.cm FINDINGS: A small left pleural effusion has slightly increased in size since CT of June 25, 2021. P ulmonary metastases are suboptimally assessed on this exam due to respiratory motion and subpleural a telectasis. No pneumatosis, free air or portal venous gas is present. Pneumobilia is again noted. Thi s is unchanged. Biliary ductal dilatation is unchanged. Metallic common bile duct stent is unchanged in position. Hypodense hepatic lesions are noted. These likely reflect partially treated hepatic meta stases. No new hepatic lesions are present An infiltrative heterogeneous mass within the uncinate pro cess and pancreatic head is similar to prior CT of June 25, 2021. Abrupt cut off of the pancreatic duct with pancreatic ductal dilatation is similar to prior examination. The spleen, adrenal glands an d kidneys are unremarkable. There is no hydronephrosis. Small to moderate abdominal and pelvic ascite s has increased. Note is made of retroperitoneal collaterals. There is a 3 cm varix of the splenic ve in. There is infiltrative this para-aortic soft tissue which narrows the left renal vein. Retroperito romulo collaterals are present. Peritoneal carcinomatosis is again noted. There is no evidence for a mackenzie wel obstruction. No suspicious osseous lesions are present. Body wall edema is present. IMPRESSION: 1. Redemonstration of the infiltrative mass within the uncinate process of the pancreas and the pancr eatic head. Infiltrative adjacent soft tissue, as described above. 2. No change in biliary and pancreatic ductal dilatation. Common bile duct stent in place with pneumo bilia. 3. Hypodense hepatic lesions which favor partially treated metastases. No new hepatic lesions. Subopt imal evaluation of pulmonary metastases, as described above. 4. Peritoneal carcinomatosis. Small to moderate ascites which has increased since prior exam. 5. No bowel obstruction. 6. Small left pleural effusion, increased in size since prior exam. ACT 112: Negative or not required by law. Electronically signed by: Chris Abreu M.D. 07/07/2021 7:33 AM
--- NOTE | 2021-07-07 07:39 | Hospitalist Progress Note ---
Date of Service July 07, 2021 Assessment & Plan (1) Ascites: Plan: Metastatic pancreatic cancer with abdominal ascites: Presented with worsening abdominal pain and ascites. Currently undergoing chemotherapy at the direction of Dr. Mcfarland. CTAP unfortunately showed new liver mets in the lateral aspect of the right lobe of the liver, as well as a developing biloma. Moderate volume ascites also noted. Therapeutic paracentesis ordered. No concern at this time for SBP. Pain control as described below. Consult placed to Dr. Mcfarland. 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 Despite this regimen, patient has had worsening with inability to tolerate pain over the last 2 days. Will increase Fentanyl patch to 50mcg q3h, and add Dilaudid as needed for breakthrough pain. Consult placed to palliative care to assist with pain control. Home constipation regimen increased to account for increased narcotics; docusate BID and Miralax BID ordered and can titrate up as necessary. Last BM 07/05. Patient is on chronic daily prednisone therapy. Given acute illness and hospitalization we will start stress dose steroids; Solu-Cortef 100 mg every 8 hours. (3) Abdominal pain: Plan: Better today with therapeutic paracentesis. Told patient she can talk to Dr. Mcfarland about scheduling outpatient therapeutic paracentesis every few weeks. (4) Acute hyponatremia: Plan: Hyponatremia: History of, with most recent Na of 127 on discharge from [facility] on 06/28. Admitted today with Na 122. Received 500cc NSS bolus in the ER. Serum osmolalility 254 mOsm, urine osmoles 401 mOsm but with urine sodium below 6 so may have some SIADH picture given patient's cancer and chemo treatment but not convinced of it due to diluted urine. No total fluid restriction for now. (5) Hypokalemia: Plan: Hypokalemia: Admitted with K of 3.4; will replete with IV and PO potassium chloride. Repeat BMP at noon. (6) History of GI bleed: Plan: History of GI Bleed, renal vein occlusion: Was previously diagnosed with renal vein occlusion and placed on Xarelto therapy. Recently discharged on 06/28 from [facility] for GI Bleed; at that time had Xarelto held due to bleeding. Patient is currently not on anticoagulation. Hgb this admission of 8.9, down fro m 10.2 on 06/28. Consult placed to Dr. Mcfarland given worsening abdominal mets and ascites, as well as for clarification regarding anticoagulation. Daily CBC while admitted. Transfuse PRBCs if Hgb <7 or symptomatic anemia. Plan: 70 yo F Hx metastatic pancreatic cancer, renal vein occlusion, recent GI Bleed, hyponatremia admitted for worsening hyponatremia, worsening abdominal pain, and ascites. Code Status: DNR/DNI FEN: clear liquid diet; hold fluids while awaiting urine and serum lytes/osms DVT ppx: defer anticoagulation pending Heme/Onc consult Dispo: Med/Surg with Telemetry Supervising Physician Co-Signing Physician Notes I personally examined the patient and verified all gudino points of history and exam, discussed case, and agree with decision making with Dr Patiño Pain much improved after paracentesis. Discussed diagnoses and plans in detail. Patient expressed understanding. Vitals noted, in general she is pleasant no distress. HEENT normocephalic atraumatic mucous membranes moist. Breathing unlabored no accessory muscle use good effort. Skin shows no rashes no pallor or icterus. Neuro without focal deficits. Abdomen soft nondistended minimally tender may be a little bit upper abdomen but apparently much better than before. No guarding rebound or rigidity. Abdominal painrelated to malignant ascitesit is not entirely clear if the pain was just from the increased girth and stretch/pressure from the ascitic fluid itself, or, given the white count making SBP a diagnosis of exclusion, have to assume that SBP plays a role as wellRocephin added. Discussed the role for repeated therapeutic paracenteses if needed, discussed for now IV antibiotics, with anticipated transition to p.o. (will follow cultures, however) Progressive metastatic pancreatic cancerunfortunately poor prognosis. Started to try to discuss this with patient overall, will also discuss with oncology further. otehrwise as above pharmacologic DVT prophylaxis relative contraindication due to her thrombocytopenia. Mechanical is of dubious benefit. Subjective Patient was seen at bedside this morning. Patient is feeling okay aside from her abdominal pain. Patient says her abdominal pain is throughout but more so on the left side. Patient says she noticed a little increased swelling in the legs recently however to me there doesn't appear to be much or any pitting edema. Denies fevers, chills, nausea, vomiting (Although she did vomit last night). Pain is controlled at the moment with pain medications. Physical Exam Constitutional: WD/WN, vitals as above Eyes: PERRL, conjunctivae normal, anicteric sclerae Respiratory: normal respiratory effort, lungs clear to auscultation Cardiovascular: RRR, no murmur, no edema Gastrointestinal (Abdomen): Bowel sounds present but hard to distinguish from shifting peritoneal fluid. Pain in the right upper and lower quadrants. No rebound or guarding. Skin: No pitting edema. Results & Data Results & Data ([facility]) Vital Signs (Past 12 Hours) Vital Signs Temp Pulse Pulse Resp BP BP Pulse Ox 07/07/21 06:30 72 18 95 07/07/21 06:00 78 18 125/64 96 07/07/21 05:30 77 14 119/61 97 07/07/21 05:00 82 19 140/68 96 07/07/21 04:30 72 17 125/51 L 96 07/07/21 04:00 85 14 98 07/07/21 03:30 78 16 96 07/07/21 03:19 81 131/67 95 07/07/21 02:46 81 18 122/61 96 07/07/21 02:34 80 16 122/61 96 07/07/21 01:21 36.6 C 91 H 20 119/71 97 Resident Activity Tracking Resident Involvement: Resident Care Provided Care Provided: Adult Hospital Medicine (1) Abdominal pain Abdominal location: left upper quadrant Qualified Code(s): R10.12 - Left upper quadrant pain
[2021-07-07] MEDS ORDERED: ONDANSETRON INJ 2 MG/ML 2 ML VIAL IV PRN (07:40)
[2021-07-07] MEDS ORDERED: ACETAMINOPHEN 325 MG TAB PO PRN (07:40)
[2021-07-07] MEDS ORDERED: ONDANSETRON 4 MG OD TAB PO PRN (08:17)
[2021-07-07] MEDS: DOCUSATE SODIUM 100 MG CAP PO SCH ×2 (08:34→20:14)
[2021-07-07] MEDS: PANCREAZE (LIPASE 10,500U) CAP PO SCH ×3 (08:34→20:14)
[2021-07-07] MEDS: POLYETHYLENE (MIRALAX) 17 GM PACK PO SCH ×2 (08:35→20:15)
[2021-07-07] MEDS: PANTOprazole 40 MG TAB PO SCH (08:35)
[2021-07-07] MEDS: HYDROCORTISONE SOD 100 MG in SYRINGE 0 ML IV SCH ×3 (08:35→23:58)
[2021-07-07] MEDS: METOCLOPRAMIDE HCL 10 MG TABLET PO SCH ×3 (08:35→21:19)
[2021-07-07 08:46] LABS: INR 1.1 (0.9-1.1); Prothrombin Time 10.8 Seconds (9.0-12.0)
[2021-07-07] MEDS ORDERED: INFLUENZA VACCINE HIGH DOSE PF 65+ 0.7 ML SYR IM ONE (10:21)
[2021-07-07 11:06] LABS: BUN Creatinine Ratio 11.7 (10-20); Calcium 8.5 mg/dl (8.5-10.1); Creatinine Clr Calc Pharmacy 143.7 ml/min; Est GFR (African American) 134.9 ml/min; Est GFR (Non-African American) 116.4 ml/min; Potassium 3.6 mmol/L (3.5-5.1)
--- NOTE | 2021-07-07 12:44 | Ultrasound Report ---
ULTRASOUND GUIDED DIAGNOSTIC AND THERAPEUTIC PARACENTESIS CLINICAL HISTORY: painful ascites COMPARISON STUDY: CT of the abdomen and pelvis performed earlier today. PROCEDURE: The risks, benefits, and alternatives to the procedure were discussed with the patient inc luding the risk of bleeding, infection and injury to adjacent structures. The patient agreed to the procedure and informed written consent was obtained. Following real-time ultrasound localization, the skin of the right lower quadrant was prepped and draped. Following local anesthesia with Xylocaine, the sheath paracentesis needle was inserted and approximately 1.7 liters of straw-colored fluid was r emoved by vacuum suction. The patient tolerated the procedure well and no immediate complications were evident. IMPRESSION: Ultrasound-guided paracentesis with removal of 1.7 liters of ascites. 1 L of ascites was sent to the laboratory for analysis as ordered. ACT 112: Negative or not required by law. Electronically signed by: Chris Abreu M.D. 07/07/2021 12:43 PM
[2021-07-07 13:01] LABS: Albumin Peritoneal Fluid 1.5 g/dl
[2021-07-07 13:07] LABS: Total Protein Peritoneal Fluid 3.9 g/dl
[2021-07-07 13:43] LABS: Appearance Peritoneal Fluid CLEAR; Basophils, Fluid 0 %; Color Peritoneal Fluid YELLOW; Eosinophils, Fluid 0 %; Lymphocytes, Fluid 59 %; Mono,Macrophage,Mesothelial 1 %; Neutrophils, Fluid 40 %; RBC Peritoneal Fluid (A) < 3000 /uL; WBC Peritoneal Fluid (A) 711 /ul (0-300)
--- NOTE | 2021-07-07 14:04 | Palliative Care Consultation ---
Date of Consultation July 07, 2021 Assessment & Plan (1) Abdominal pain: with metastatic pancreatic cancer. Monitor with increased dose of fentanyl. She feels that hydromorphone is more effective. This may be because of IV route. Equivalent dose to her home dose of oxycodone would be closer to 0.5mg. Will add range and continue prn dosing. She could be converted to po dilaudid rather than oxycodone at discharge if effective. She tells me that she is in the process of registering for medical marijuana as well. Abdominal location: left upper quadrant Qualified Code(s): R10.12 - Left upper quadrant pain (2) Ileus: On miralax BID, did receive relistor last admission (3) Palliative care encounter: I talked with Gustavo about how she is coping with her illness. She has three grandchildren age 2 and under and very much wants to see them grow up. She tells me that she recently talked with her daughter about the fact that she may not live very long but hopes that is not the case. I spoke with her on the phone who is pleased to hear that her pain has improved. He is hopeful that she will be able to have her cancer treatment tomorrow. Palliative care will follow. (4) Renal vein occlusion: (5) Malignant neoplasm of pancreas metastatic to liver: History of Present Illness Reason for Consultation: Pain management Requesting Physician: Dr. Mcbride Attending Physician: Aron Brown DO History of Present Illness 70 yo lady diagnosed with pancreatic cancer early this year. She has been seeing Dr. Mcfarland for treatment and tells me that she is currently on gemcitabine. She has had biliary stent placed in the past due to obstruction. She was hospitalized earlier this month with ileus and GI bleed and is hemoglobin on admission was 8.9. She also has hyponatremia with sodium of 122. In late May, she had a PET scan which showed metastatic lymphadenopathy as well as hepatic, pulmonary mets and peritoneal carcinomatosis. She has been having ongoing problems with ascites and progressive abdominal pain. She had been on fentanyl patch 25mcg and oxycodone 10mg every four hours but pain was worsening and not controlled so she came to ER. Her fentanyl has been increased to 50mcg this morning and she has received two doses, 0.5 and 1 mg of hydromorphone IV for pain. She did also have US guided paracentesis with removal of 1.7L ascitic fluid. She reports that the pain is better. She describes it as a squeezing pain that is variable, severe at times across her upper abdomen. It is worse at night and often keeps her awake. It does not radiate. It is not burning or stabbing in nature. She also has b/l shoulder pain and midback pain. Allergies Allergy/AdvReac Type Severity Reaction Status Date / Time No Known Allergies Allergy Unverified 07/07/21 03:04 Home Medications Medication Instructions Recorded Confirmed Type gabapentin 300 mg capsule 300 mg PO HS 06/17/21 07/07/21 History (Neurontin) cmndhe-xqhdlhez-jlptvdz 1 cap PO TIDM 06/17/21 07/07/21 History 36,000-114,000-180,000 unit capsule,delay rel (Creon) metoclopramide HCl 10 mg tablet 10 mg PO TIDM 06/17/21 07/07/21 History (Reglan) docusate sodium 100 mg capsule 100 mg PO DAILY 06/25/21 07/07/21 History (Dulcolax Stool Softener (docusate)) prednisone 10 mg tablet 10 mg PO DAILY 06/25/21 07/07/21 History fentanyl 25 mcg/hr transdermal 25 mcg TRANSDERMAL Q3D #5 ea 06/28/21 07/07/21 Rx patch oxycodone 10 mg tablet 10 mg PO Q4H PRN #30 tab 06/28/21 07/07/21 Rx pantoprazole 40 mg tablet,delayed 40 mg PO DAILY #30 tab 06/28/21 07/07/21 Rx release polyethylene glycol 3350 17 gram 17 g PO BID #30 ea 06/28/21 07/07/21 Rx oral powder packet (Miralax) ondansetron HCl 8 mg tablet 8 mg PO Q8 PRN 07/07/21 07/07/21 History Patient History Medical History Abdominal pain History of biliary stent insertion Pancreatic cancer Transaminitis Social History Smoking Status: Never smoker Hx Alcohol Use: No Hx Substance Use: No Preferred Language: French Communication Ability: Effective Body Straightener Required: No Beliefs That Will Affect Care: None Current Living Situation: Spouse Feels Safe at Home: Yes Assistive Devices: Glasses Review of Systems Review of Systems: [place] Symptom Assessment Scale Pain 3/3 Dyspnea 0/3 Anxiety 1/3 Fatigue 2/3 Nausea 0/3 Anorexia 2/3 Drowsiness 0/3 Physical Exam Constitutional: + thin; no acute distress Eyes: mild scleral icterus Respiratory: normal respiratory effort; no labored breathing Cardiovascular: Rate/Rhythm: regular rate and regular rhythm LE edema Gastrointestinal (Abdomen): soft, nontender, distended Musculoskeletal: Extremities: + muscle atrophy Neurologic: awake; not confused Results & Data ([facility] [place]) Vital Signs (Past 12 Hours) Vital Signs Pulse Pulse Resp BP BP Pulse Ox 07/07/21 09:00 86 18 147/71 H 96 07/07/21 06:30 72 18 95 07/07/21 06:00 78 18 125/64 96 07/07/21 05:30 77 14 119/61 97 07/07/21 05:00 82 19 140/68 96 07/07/21 04:30 72 17 125/51 L 96 07/07/21 04:00 85 14 98 07/07/21 03:30 78 16 96 07/07/21 03:19 81 131/67 95 07/07/21 02:46 81 18 122/61 96 07/07/21 02:34 80 16 122/61 96 PG Care Time/CCT Total # of Minutes Spent Total Time Spent: 70 Total Time Spent with Patient: Total time spent is greater than 50% in coordination of care (as documented) at patient's floor/unit and/or counseling patient: symptom management, patient and family education and support Coding Level of Care Code 36346 Initial Inpt Care Lvl 3 Diagnoses Abdominal pain R10.12 Abdominal location: left upper quadrant Ileus K56.7 Renal vein occlusion I82.3 Malignant neoplasm of pancreas metastatic to liver C25.9; C78.7 Palliative care encounter Z51.5
[2021-07-07 14:40] LABS: BUN Creatinine Ratio 19.4 (10-20); Blood Urea Nitrogen 4 mg/dl (7-18); Calcium 8.2 mg/dl (8.5-10.1); Carbon Dioxide 28 mmol/L (21-32); Chloride 91 mmol/L (98-107); Creatinine Clr Calc Pharmacy 212.1 ml/min; Est GFR (African American) > 150.0 ml/min; Est GFR (Non-African American) 132.3 ml/min; Glucose 184 mg/dl (70-99); Potassium 3.3 mmol/L (3.5-5.1); Sodium 128 mmol/L (136-145)
[2021-07-07] MEDS ORDERED: HYDROmorphone INJ 0.5 MG/0.5 ML SYR IV PRN (14:42)
[2021-07-07 15:33] LABS: Hematocrit (blood only) 26.4 % (37-47); Hemoglobin 8.9 g/dL (12.0-16.0); Mean Corpuscular Hemoglobin 28.1 pg (25-34); Mean Corpuscular Hgb Conc 33.7 g/dL (32-36); Mean Corpuscular Volume 83.3 fL (80-100); RDW Standard Deviation 42.6 fL (36.4-46.3); Red Blood Count 3.17 M/uL (4.2-5.4); White Blood Count 6.98 K/uL (4.8-10.8)
[2021-07-07 15:53] LABS: Albumin Level 1.8 gm/dl (3.4-5.0); BUN Creatinine Ratio 15.2 (10-20); Calcium 8.3 mg/dl (8.5-10.1); Creatinine Clr Calc Pharmacy 193.7 ml/min; Est GFR (African American) 148.8 ml/min; Est GFR (Non-African American) 128.4 ml/min; Potassium 3.4 mmol/L (3.5-5.1)
[2021-07-07 15:55] LABS: Mean Platelet Volume 8.6 fL (7.4-10.4); Platelet Count 85 K/uL (130-400)
[2021-07-07 15:56] LABS: Immature Granulocytes # (auto) 0.02 K/uL (0.00-0.02); Immature Granulocytes % (auto) 0.3 %; Lymphocytes # (auto) 0.17 K/uL (1.2-3.4); Lymphocytes % (auto) 2.4 %; Monocytes # (auto) 0.28 K/uL (0.11-0.59); Neutrophils # (auto) 6.51 K/uL (1.4-6.5); Neutrophils % (auto) 93.3 %; Platelet Estimate Decreased (Normal); Polychromasia 1+
[2021-07-07 15:59] LABS: Albumin Globulin Ratio 0.4 (0.9-2); Bilirubin,Total 1.4 mg/dl (0.2-1); Globulin 4.1 gm/dl (2.5-4.0); Total Protein 5.9 gm/dl (6.4-8.2)
[2021-07-07] MEDS: cefTRIAXone SODIUM 2,000 MG in DEXTROSE 5% 50 ML IV SCH (16:40)
[2021-07-07 18:56] LABS: BUN Creatinine Ratio 15.5 (10-20); Calcium 7.8 mg/dl (8.5-10.1); Creatinine Clr Calc Pharmacy 178.2 ml/min; Est GFR (African American) 144.8 ml/min; Est GFR (Non-African American) 124.9 ml/min; Potassium 3.2 mmol/L (3.5-5.1)
[2021-07-07] MEDS: GABAPENTIN 300 MG CAP PO SCH (20:15)
[2021-07-07 22:40] LABS: Appearance Urine Clear (Clear); Bacteria Urine Automated Negative (Negative); Blood Urine Trace (Negative); Color Urine Dark Yellow; Epithelial Cell Urine Auto 20-30 /lpf (0-5); Glucose Urine UA 1+ (Negative); Ketones Urine 4+ (Negative); Leukocyte Esterase Urine Negative (Negative); Nitrite Urine Negative (Negative); Protein Urine 1+ (Negative); RBC Urine Automated 0-4 /hpf (0-4); Specific Gravity Urine 1.021 (1.000-1.030); Urobilinogen Urine Negative (Negative)
[2021-07-07 22:42] LABS: Bilirubin Urine 1+ (Negative)
--- NOTE | 2021-07-08 01:43 | Billing Data ---
Date of Service July 08, 2021 Coding Level of Care Code 57021 Initial Inpt Care Lvl 3
--- NOTE | 2021-07-08 06:49 | Hospitalist Progress Note ---
Date of Service July 08, 2021 Assessment & Plan (1) Ascites: Plan: Metastatic pancreatic cancer with abdominal ascites: Presented with worsening abdominal pain and ascites. Currently undergoing chemotherapy at the direction of Dr. Mcfarland. CTAP unfortunately showed new liver mets in the lateral aspect of the right lobe of the liver, as well as a developing biloma. Moderate volume ascites also noted. Therapeutic paracentesis ordered. Concern for SBP given her paracentesis showed PMN cells >250. Administered first dose of Ceftriaxone 2g yesterday. Pain control as described below. After talking with the patient, Dr. Mcfarland and Gustavo agreed to resume outpatient treatment of her cancer most likely causing the ascites. They will continue with another chemotherapy regimen once she is discharged. Please refer to Dr. Mcfarland's note for further clarification on treatment plans. 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 Despite this regimen, patient has had worsening with inability to tolerate pain over the last 2 days. Will increase Fentanyl patch to 50mcg q3h, and add Dilaudid as needed for breakthrough pain. Consult placed to palliative care to assist with pain control. Home constipation regimen increased to account for increased narcotics; docusate BID and Miralax BID ordered and can titrate up as necessary. Last BM 07/05. Patient is on chronic daily prednisone therapy. Given acute illness and hospitalization we will start stress dose steroids; Solu-Cortef 100 mg every 8 hours. Patient has acute episode of vomiting when Dr. Brown saw her in the afternoon. Put on Zofran as well as Protonix and Pepcid for the nausea/vomiting. (3) SBP (spontaneous bacterial peritonitis): Plan: Patient's paracentesis showed PMN cells >250 (WBC's 711 with 40% neutrophils). Patient started on Ceftriaxone 2g daily and will get this regimen for 3 days before being transitioned to outpatient oral medications given that she is feeling better with the pain and without signs of infection. (4) Abdominal pain: Plan: Better after paracentesis, will gauge how the patient is feeling while eating food and discussed with patient possibility of scheduled outpatient therapeutic paracentesis while undergoing her treatment. Patient talked with Dr. Mcfarland about cancer treatment outpatient after discharge as discussed above. (5) Acute hyponatremia: Plan: Hyponatremia: History of, with most recent Na of 127 on discharge from [facility] on 06/28. Admitted today with Na 122. Received 500cc NSS bolus in the ER. Serum osmolalility 254 mOsm, urine osmoles 401 mOsm but with urine sodium below 6 so may have some SIADH picture given patient's cancer and chemo treatment but not convinced of it due to diluted urine. No total fluid restriction for now. (6) Hypokalemia: Plan: Hypokalemia: Admitted with K of 3.4; will replete with IV and PO potassium chloride. Repeat BMP this morning pending. (7) History of GI bleed: Plan: History of GI Bleed, renal vein occlusion: Was previously diagnosed with renal vein occlusion and placed on Xarelto therapy. Recently discharged on 06/28 from [facility] for GI Bleed; at that time had Xarelto held due to bleeding. Patient is currently not on anticoagulation. Hgb this admission of 8.9, down from 10.2 on 06/28. Consult placed to Dr. Mcfarland given worsening abdominal mets and ascites, as well as for clarification regarding anticoagulation. Daily CBC while admitted. Transfuse PRBCs if Hgb <7 or symptomatic anemia. Plan: 70 yo F Hx metastatic pancreatic cancer, renal vein occlusion, recent GI Bleed, hyponatremia admitted for worsening hyponatremia, worsening abdominal pain, and ascites. Code Status: DNR/DNI FEN: clear liquid diet; hold fluids while awaiting urine and serum lytes/osms DVT ppx: defer anticoagulation pending Heme/Onc consult Dispo: Med/Surg with Telemetry Admission and Anticipated Discharge Date Admission Date: July 07, 2021 Supervising Physician Co-Signing Physician Notes I personally examined the patient and verified all gudino points of history and exam, discussed case, and agree with decision making with Dr Patiño A bit of burning abdominal pain, nausea vomiting this afternoon. Still really wants to go home tomorrow. [employer] Professor input greatly appreciated. Vitals noted, initially standing up in the room, appearing somewhat nauseated, there is clear yellow vomitus and an emesis bag. HEENT normocephalic atraumatic mucous membranes moist. Breathing unlabored no accessory muscle use good effort. Skin shows no rashes no pallor or icterus. Neuro without focal def icits. Abdomen is soft, mild diffuse tenderness no guarding no rebound no rigidity, still no significant reaccumulation of ascites Nausea vomitingnonspecificlikely related to all going onmalignancy, medications, possible infection, etc. For now symptomatic carescheduled Zofran, twice daily Pepcid and Protonix. abdominal painrelated to malignant ascitesit is not entirely clear if the pain was just from the increased girth and stretch/pressure from the ascitic fluid itself, or, given the white count making SBP a diagnosis of exclusion, have to assume that SBP plays a role as wellcontinue Rocephin. Given that is not entirely clear she has SBPwhile I definitely feel obligated to treat, given that her malignancy could explain the leukocytosis and her ascitic fluid (particularly with it being culture negative and the paracentesis was sent prior to initiation of antibiotics), and she is desperate to get home with her family while carrying a very poor prognosis, if it would be reasonable to treat through tomorrow with IV antibiotics, and then likely transition to p.o.again because the main reason for treatment is simply the white count intraperitoneal fluid with no other clear septic signs/symptoms/features. Previously discussed the role for repeated therapeutic paracentesis if needed. Progressive metastatic pancreatic cancerunfortunately poor prognosis. Palliative/oncology following as well Otherwise as above, pharmacologic DVT prophylaxis relative contraindication due to her thrombocytopenia. Mechanical is of dubious benefit. Subjective Patient was seen at bedside this morning. Patient said she feels she has more fluid today than after she was drained yesterday. She says she still feels the swelling in her legs and has not previously received medication for the swelling. Patient said she will try to see if she has any pain after I am done talking with her while she eats. Physical Exam Constitutional: WD/WN, vitals as above Eyes: PERRL, conjunctivae normal, anicteric sclerae Respiratory: normal respiratory effort, lungs clear to auscultation Cardiovascular: RRR, no murmur, no edema Skin: Swelling at the bilateral feet with 1+ pitting edema. Results & Data Results & Data ([facility]) Vital Signs (Past 12 Hours) Vital Signs Temp Pulse Pulse Resp BP Pulse Ox 07/08/21 04:00 36.8 C 93 H 18 117/67 96 07/08/21 00:09 69 07/07/21 22:47 36.8 C 70 17 124/71 98 07/07/21 20:26 84 07/07/21 20:25 36.8 C 84 18 138/79 97 Resident Activity Tracking Resident Involvement: Resident Care Provided Care Provided: Adult Hospital Medicine (1) Abdominal pain Abdominal location: left upper quadrant Qualified Code(s): R10.12 - Left upper quadrant pain
[2021-07-08] MEDS: METOCLOPRAMIDE HCL 10 MG TABLET PO SCH ×3 (08:20→17:20)
[2021-07-08] MEDS: PANCREAZE (LIPASE 10,500U) CAP PO SCH ×3 (08:20→17:19)
[2021-07-08] MEDS: cefTRIAXone SODIUM 2,000 MG in DEXTROSE 5% 50 ML IV SCH (08:20)
[2021-07-08] MEDS: PANTOprazole 40 MG TAB PO SCH ×2 (08:20→23:05)
[2021-07-08] MEDS: DOCUSATE SODIUM 100 MG CAP PO SCH ×2 (08:20→23:05)
[2021-07-08] MEDS: POLYETHYLENE (MIRALAX) 17 GM PACK PO SCH ×2 (08:20→23:20)
[2021-07-08] MEDS: CHECK fentaNYL PATCH PLACEMENT SCH ×3 (08:20→15:45)
[2021-07-08] MEDS: HYDROCORTISONE SOD 100 MG in SYRINGE 0 ML IV SCH ×3 (08:21→23:21)
[2021-07-08 08:40] LABS: Hemoglobin 9.5 g/dL (12.0-16.0); Mean Corpuscular Hemoglobin 27.5 pg (25-34); Mean Corpuscular Hgb Conc 32.8 g/dL (32-36); Mean Corpuscular Volume 84.1 fL (80-100); RDW Coefficient of Variation 14.1 % (11.5-14.5); RDW Standard Deviation 43.4 fL (36.4-46.3); Red Blood Count 3.45 M/uL (4.2-5.4); White Blood Count 4.91 K/uL (4.8-10.8)
--- NOTE | 2021-07-08 08:51 | Consultation Report ---
MEDICAL ONCOLOGY CONSULTATION DATE OF SERVICE: 07/08/2021 REASON FOR CONSULTATION: A 70-year-old [place]ian female with history of metastatic pancreatic cancer (hepatic mets) diagnosed in 10/2020. HISTORY OF PRESENT ILLNESS: Gustavo is well known to [facility], currently under my care. Had recently compl eted salvage FOLFIRINOX x2 weeks completed on 05/11/2021. She is in the midst of beginning salvage s enzo agent gemcitabine 800 mg/m2 weekly x3 every 28 days. The patient had been hospitalized earlier in the month with ileus and GI bleed with hemoglobin on admission of 8.9 g/dL and mildly hyponatremi c with a sodium of 122. In late May, PET scan had revealed metastatic lymphadenopathy as well as hepatic/pulmonary and peritoneal carcinomatosis. Hence, the decision to proceed with gemcitabine. Gustavo has continued to struggle with abdominal pain. I had recently placed her on both fentanyl a nd oxycodone and received multiple phone calls the night prior to her admission from family members a sking about Tylenol versus [id number] anti-inflammatory to alleviate her pain. It was on my re commendation she proceeded to [facility] Emergency Room. The patient has been ad ministered Dilaudid, which has been much more efficacious in controlling her pain. She underwent ult rasound-guided paracentesis, which removed 1.7 liters of ascitic fluid. At the bedside this morning, she was in good spirits and was overall very pleased with her presentation. She is anxious to be di scharged to resume salvage chemotherapy moving forward. PAST MEDICAL HISTORY: Relatively benign with no serious comorbid issues, but history of metastatic p ancreatic cancer and biliary stent placement. MEDICATIONS: Include gabapentin 300 mg p.o. at bedtime, [id number]-rblbrdy 1 capsule p.o. t.i.d ., metoclopramide 10 mg p.o. t.i.d., docusate sodium 100 mg p.o. daily, prednisone 10 mg p.o. daily, fentanyl 25 mcg p.o. q.72 hours topically, oxycodone 10 mg p.o. q.4 hours p.r.n. for pain, Protonix 40 mg p.o. daily, MiraLax 17 g p.o. b.i.d. and Zofran 8 mg p.o. q.8 hours p.r.n. ALLERGIES: No known drug allergies. SOCIAL HISTORY: The patient resides with her spouse. She is a nonsmoker, nondrinker, nonillicit feng g user. FAMILY HISTORY: Noncontributory. PHYSICAL EXAMINATION: CONSTITUTIONAL: As per HPI, most notably for increased abdominal girth and ascites, diffuse abdomina l pain. No fevers, chills or sweats. Positive for anorexia. SKIN: No rashes or lesions. No history of dermatoses. HEENT: Negative for headaches, lightheadedness or dizziness. No dysphagia or sore throat. LYMPHATICS: No lymphoproliferative disease by history. CARDIAC: No history of coronary artery disease. No current angina or palpitations. PULMONARY: No history of COPD. No shortness of breath, dyspnea, or orthopnea. No cough or hemoptys is. GASTROINTESTINAL: As per HPI. GENITOURINARY: No hematuria, dysuria, or urinary incontinence. PSYCHIATRIC: Negative for anxiety, depression, or psychoses. MUSCULOSKELETAL: Negative for arthralgias or myalgias. No focal muscle weakness. ENDOCRINE: Negative for thyroid disease or diabetes mellitus. NEUROLOGIC: Negative for seizure, stroke or migraine headaches. HEMATOLOGIC: Positive for normocytic, normochromic anemia. PHYSICAL EXAMINATION: GENERAL: A very pleasant 70-year-old [place]ian female, awake, alert, appropriate, in no acute distres s. VITAL SIGNS: Temperature 36.6, pulse 72, respiratory rate 18, blood pressure 118/69. SKIN: Warm, dry, noncyanotic without petechia, rash or ecchymosis. HEENT: Head is atraumatic, normocephalic. Eyes PERRLA, EOMI. Nares patent without rhinorrhea or di scharge. Throat is clear. Tongue is midline. Mucous membranes are moist. NECK: Supple without JVD or thyromegaly. LYMPHATICS: No cervical or supraclavicular palpable nodes. HEART: Regular rate and rhythm. No clicks, rubs, murmurs or gallops. LUNGS: Clear to auscultation bilaterally. ABDOMEN: Soft, much less distended and much less tender. Bowel sounds are hypoactive. No rigidity or guarding. EXTREMITIES: She has trace peripheral edema in bilateral lower extremities. MUSCULOSKELETAL: Strength and pulses are equal in all 4 quadrants. NEUROLOGICAL: Grossly intact. RADIOGRAPHIC DATA: Ultrasound-guided therapeutic paracentesis yields 1.[address] of th e abdomen and pelvis with redemonstration of infiltrative mass within the uncinate process of the marcial creas and pancreatic head. Hypodense hepatic lesions, which favor partially treated metastases. No n ew hepatic lesions are seen. Peritoneal carcinomatosis. Small to moderate ascites, which has increa sed since prior examination. LABORATORY DATA: WBC count 6980, hemoglobin 8.9, platelet count 85,000. Sodium 129, potassium 3.2, chloride 92, carbon dioxide 29, creatinine 0.25, BUN 4, total bilirubin 1.4, AST slightly elevated at 58, alkaline phosphatase 767, albumin 1.8. UA significant for ketonuria. IMPRESSION: 1. Ascites. 2. Diffuse intractable abdominal pain. 3. Metastatic pancreatic cancer (hepatic metastasis). 4. Hypoalbuminemia. 5. Hyponatremia. PLAN: Gustavo is a very pleasant 70-year-old [place]ian female, unfortunately appears to be progressing despite receiving full complement of FOLFIRINOX chemotherapy, which completed just a little over a m onth ago. Within the past couple of weeks, had been complaining of diffuse abdominal pain and increa sed abdominal girth. I initially placed her on fentanyl with oxycodone, which was insufficient to tr eat her pain. I had received multiple calls from family members on the night of admission and thus r ecommended she proceed to the local Emergency Room. I was very pleased, she successfully underwent p aracentesis yielding 1.7 liters of fluid, which is guaranteed to be malignant. That said, Gustavo is very interested in continuing her fight and we will arrange for gemcitabine to begin once she is disc harged. In the next day or two, I would like her pain management optimized and perhaps administer erica ly albumin, which may prove to be helpful for her. Conversion to oral hydromorphone would be appreci ated. I will ensure Gustavo is scheduled for appropriate followup and resumption of gemcitabine as he r and her family desire. I appreciate palliative care's input. I believe Gustavo probably should str ongly consider hospice at this time, but her and her family are vehement about wanting to continue ac tive treatment. I have nothing further to add. Thank you very much for allowing me to participate in her care. Job ID: [id number]
[2021-07-08] MEDS: HEPARIN 100 UNIT/ML 5ML FLUSH FLUSH PRN ×2 (08:55→16:17)
[2021-07-08 08:58] LABS: Mean Platelet Volume 9.3 fL (7.4-10.4); Platelet Count 87 K/uL (130-400)
[2021-07-08 09:00] LABS: Immature Granulocytes # (auto) 0.01 K/uL (0.00-0.02); Immature Granulocytes % (auto) 0.2 %; Lymphocytes # (auto) 0.43 K/uL (1.2-3.4); Lymphocytes % (auto) 8.8 %; Monocytes # (auto) 0.31 K/uL (0.11-0.59); Monocytes % (auto) 6.3 %; Neutrophils # (auto) 4.16 K/uL (1.4-6.5); Neutrophils % (auto) 84.7 %
[2021-07-08 09:19] LABS: BUN Creatinine Ratio 26.3 (10-20); Blood Urea Nitrogen 5 mg/dl (7-18); Calcium 8.7 mg/dl (8.5-10.1); Carbon Dioxide 28 mmol/L (21-32); Chloride 92 mmol/L (98-107); Creatinine Clr Calc Pharmacy 222.7 ml/min; Est GFR (African American) > 150.0 ml/min; Est GFR (Non-African American) 134.4 ml/min; Glucose 219 mg/dl (70-99); Potassium 3.3 mmol/L (3.5-5.1); Sodium 130 mmol/L (136-145)
--- NOTE | 2021-07-08 10:51 | Palliative Care Progress Note ---
Date of Service July 08, 2021 Assessment & Plan (1) Abdominal pain: Plan: multifactorial with ascites, SBP and ileus. Pain has been better controlled with increased fentanyl dose. We discussed oxycodone versus hydromorphone prn for home regimen. She would prefer to continue oxycodone. We reviewed that if fentanyl continues to be effective, she will only need to use oxycodone when pain increases rather than every four hours. (2) Ileus: Plan: She had BM last night and feels better. Continue miralax (3) Palliative care encounter: (4) SBP (spontaneous bacterial peritonitis): (5) Malignant neoplasm of pancreas metastatic to liver: Admission and Anticipated Discharge Date Admission Date: July 07, 2021 Subjective Drowsy but easily arousable and able to sustain conversation. Denies pain at this time. Has not had any prn medications. Review of Systems Review of Systems: [place] Symptom Assessment Scale Pain 0/3 Dyspnea 0/3 Anxiety 1/3 Fatigue 2/3 Nausea 0/3 Drowsiness 1/3 Palliative Performance Score 50% Physical Exam Constitutional: no acute distress Respiratory: normal respiratory effort; no labored breathing Gastrointestinal (Abdomen): distended, nontender Musculoskeletal: Extremities: + muscle atrophy Results & Data ([facility]) Vital Signs (Past 12 Hours) Vital Signs Temp Pulse Pulse Resp BP Pulse Ox 07/08/21 07:00 97.9 F 72 18 118/69 95 07/08/21 04:00 98.2 F 93 H 18 117/67 96 07/08/21 00:09 69 07/07/21 22:47 98.2 F 70 17 124/71 98 PG Care Time/CCT Total # of Minutes Spent Total Time Spent with Patient: Total time spent is greater than 50% in coordination of care (as documented) at patient's floor/unit and/or counseling patient: Coding Level of Care Code 67616 Subseq Hosp Care Lvl 2 Diagnoses Abdominal pain R10.12 Abdominal location: left upper quadrant Ileus K56.7 Palliative care encounter Z51.5 SBP (spontaneous bacterial peritonitis) K65.2 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
[2021-07-08] MEDS: oxyCODONE HCL IR 5 MG TAB (IMMEDIATE RELEASE) PO PRN (16:14)
[2021-07-08] MEDS ORDERED: FAMOTIDINE 20 MG in SYRINGE 3 ML IV ONE (16:30)
[2021-07-08] MEDS: ONDANSETRON INJ 2 MG/ML 2 ML VIAL IV SCH ×2 (16:41→23:04)
--- NOTE | 2021-07-08 17:05 | Billing Data ---
Date of Service July 08, 2021 Coding Level of Care Code 96373 Subseq Hosp Care Lvl 3
[2021-07-08] MEDS: FAMOTIDINE 20 MG in SYRINGE 3 ML IV SCH (23:04)
[2021-07-08] MEDS: GABAPENTIN 300 MG CAP PO SCH (23:04)
[2021-07-09] MEDS: CHECK fentaNYL PATCH PLACEMENT SCH ×4 (00:05→23:52)
[2021-07-09] MEDS ORDERED: LIDOCAINE VISCOUS 2% SOLN 60 ML, diphenhydrAMINE Syrup 150 MG, ALUMINUM/MAGNESIUM SUSP ... PO PRN (01:49)
[2021-07-09] MEDS: ONDANSETRON INJ 2 MG/ML 2 ML VIAL IV SCH ×4 (03:34→21:13)
[2021-07-09] MEDS: HYDROmorphone INJ 0.5 MG/0.5 ML SYR IV PRN (03:35)
[2021-07-09] MEDS ORDERED: diphenhydrAMINE 50 MG/ML VIAL IV STA (03:53)
[2021-07-09 06:28] LABS: Hematocrit (blood only) 28.2 % (37-47); Hemoglobin 9.3 g/dL (12.0-16.0); Mean Corpuscular Hemoglobin 27.7 pg (25-34); Mean Corpuscular Volume 83.9 fL (80-100); RDW Coefficient of Variation 14.1 % (11.5-14.5); Red Blood Count 3.36 M/uL (4.2-5.4)
[2021-07-09 07:00] LABS: Albumin Level 1.8 gm/dl (3.4-5.0); BUN Creatinine Ratio 31.5 (10-20); Calcium 8.4 mg/dl (8.5-10.1); Est GFR (African American) 141.2 ml/min; Est GFR (Non-African American) 121.8 ml/min; Potassium 3.4 mmol/L (3.5-5.1)
[2021-07-09 07:10] LABS: Mean Platelet Volume 9.1 fL (7.4-10.4); Platelet Count 71 K/uL (130-400)
[2021-07-09 07:11] LABS: Hypochromasia Present; Immature Granulocytes # (auto) 0.02 K/uL (0.00-0.02); Immature Granulocytes % (auto) 0.6 %; Lymphocytes # (auto) 0.29 K/uL (1.2-3.4); Lymphocytes % (auto) 8.1 %; Monocytes # (auto) 0.33 K/uL (0.11-0.59); Monocytes % (auto) 9.2 %; Neutrophils # (auto) 2.96 K/uL (1.4-6.5); Neutrophils % (auto) 82.1 %; Tear Drop Cells 1+
--- NOTE | 2021-07-09 07:14 | Hospitalist Progress Note ---
Date of Service July 09, 2021 Assessment & Plan (1) Ascites: Plan: Metastatic pancreatic cancer with abdominal ascites: Presented with worsening abdominal pain and ascites. Currently undergoing chemotherapy at the direction of Dr. Mcfarland. CTAP unfortunately showed new liver mets in the lateral aspect of the right lobe of the liver, as well as a developing biloma. Moderate volume ascites also noted. Therapeutic paracentesis ordered. Concern for SBP given her paracentesis showed PMN cells >250. Administered first dose of Ceftriaxone 2g yesterday. Pain control as described below. After talking with the patient, Dr. Mcfarland and Gustavo agreed to resume outpatient treatment of her cancer most likely causing the ascites. They will continue with another chemotherapy regimen once she is discharged. Please refer to Dr. Mcfarland's note for further clarification on treatment plans. 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 Despite this regimen, patient has had worsening with inability to tolerate pain over the last 2 days. Will increase Fentanyl patch to 50mcg q3h, and add Dilaudid as needed for breakthrough pain. Consult placed to palliative care to assist with pain control. Home constipation regimen increased to account for increased narcotics; docusate BID and Miralax BID ordered and can titrate up as necessary. Last BM 07/05. Patient is on chronic daily prednisone therapy. Given acute illness and hospitalization we will start stress dose steroids; Solu-Cortef 100 mg every 8 hours. Patient has acute episode of vomiting when Dr. Brown saw her in the afternoon. Put on Zofran as well as Protonix and Pepcid for the nausea/vomiting. Patient complained of feeling dehydrated after a few bouts of vomiting, ordered 1L LR 125cc/hr for patient and instructed nurse to give separately from ceftriaxone dose. (3) SBP (spontaneous bacterial peritonitis): Plan: Patient's paracentesis showed PMN cells >250 (WBC's 711 with 40% neutrophils). Patient started on Ceftriaxone 2g daily and will get this regimen for 4 days before being transitioned to outpatient oral medications given that she is feeling better with the pain and without signs of infection. (4) Abdominal pain: Plan: Better after paracentesis, will gauge how the patient is feeling while eating food and discussed with patient possibility of scheduled outpatient therapeutic paracentesis while undergoing her treatment. Patient talked with Dr. Mcfarland about cancer treatment outpatient after discharge as discussed above. (5) Acute hyponatremia: Plan: Hyponatremia: History of, with most recent Na of 127 on discharge from [facility] on 06/28. Admitted today with Na 122. Received 500cc NSS bolus in the ER. Serum osmolalility 254 mOsm, urine osmoles 401 mOsm but with urine sodium below 6 so may have some SIADH picture given patient's cancer and chemo treatment but not convinced of it due to diluted urine. No total fluid restriction for now. (6) Hypokalemia: Plan: Hypokalemia: Admitted with K of 3.4; will replete with IV and PO potassium chloride. Repeat BMP this morning pending. (7) History of GI bleed: Plan: History of GI Bleed, renal vein occlusion: Was previously diagnosed with renal vein occlusion and placed on Xarelto therapy. Recently discharged on 06/28 from [facility] for GI Bleed; at that time had Xarelto held due to bleeding. Patient is currently not on anticoagulation. Hgb this admission of 8.9, down from 10.2 on 06/28. Consult placed to Dr. Mcfarland given worsening abdominal mets and ascites, as well as for clarification regarding anticoagulation. Daily CBC while admitted. Transfuse PRBCs if Hgb <7 or symptomatic anemia. Plan: 70 yo F Hx metastatic pancreatic cancer, renal vein occlusion, recent GI Bleed, hyponatremia admitted for worsening hyponatremia, worsening abdominal pain, and ascites. Code Status: DNR/DNI FEN: clear liquid diet; hold fluids while awaiting urine and serum lytes/osms DVT ppx: defer anticoagulation pending Heme/Onc consult Dispo: Med/Surg with Telemetry Admission and Anticipated Discharge Date Admission Date: July 07, 2021 Supervising Physician Co-Signing Physician Notes I personally examined the patient and verified all gudino points of history and exam, discussed case, and agree with decision making with Dr Patiño Still with abdominal pain and nausea. Abdominal pain is burning. Nausea on and off but mostly persistent Vitals noted, initially standing up in the room, appearing somewhat nauseated, there is clear yellow vomitus and an emesis bag. HEENT normocephalic atraumatic mucous membranes moist. Breathing unlabored no accessory muscle use good effort. Skin shows no rashes no pallor or icterus. Neuro without focal deficits. Abdomen is soft, mild diffuse tenderness no guarding no rebound no rigidity, still no significant reaccumulation of ascites Nausea vomitingnonspecificlikely related to all going onmalignancy, medications, possible infection, etc. For now symptomatic carecontinue scheduled Zofran, twice daily Pepcid and Protonix. Add Marinol abdominal painrelated to malignant ascitesnot clear if all just related to increased girth and stretch, versus SBP (possible SBPculture was negative, but leukocytes significantly high making polys greater than 250on ceftriaxone, at the same time all this inflammatory change may just be from the malignancy)at any rate continue ceftriaxone, escalate pain meds, ongoing supportive care. Progressive metastatic pancreatic cancerunfortunately poor prognosis. Palliative/oncology following as well Otherwise as above, pharmacologic DVT prophylaxis relative contraindication due to her thrombocytopenia. Mechanical is of dubious benefit. Subjective Patient was seen at the bedside this morning. She had several bouts of vomiting last night as well as sore throat. She was given some magic mouthwash and Benadryl afterwards which helped. She said she is still having abdominal pain from eating food. She had only eaten breakfast and lunch yesterday. She said she also had a normal bowel movement last night and will hold off on the miralax for now. No fevers or chills and said she woke up today without the pain in her abdomen but the vomiting is still having her feel not very well. Physical Exam Constitutional: WD/WN, vitals as above Eyes: PERRL, conjunctivae normal, anicteric sclerae Respiratory: normal respiratory effort, lungs clear to auscultation Cardiovascular: RRR, no murmur, no edema Skin: 1+ pitting edema bilaterally. Results & Data Results & Data ([facility]) Vital Signs (Past 12 Hours) Vital Signs Temp Pulse Pulse Resp BP BP Pulse Ox 07/09/21 07:05 36.8 C 86 16 126/73 95 07/09/21 02:42 36.3 C L 79 18 125/69 96 07/08/21 23:59 73 07/08/21 23:12 36.7 C 80 18 112/54 L 95 07/08/21 20:00 36.4 C L 73 18 128/71 96 Resident Activity Tracking Resident Involvement: Resident Care Provided Care Provided: Adult Hospital Medicine (1) Abdominal pain Abdominal location: left upper quadrant Qualified Code(s): R10.12 - Left upper quadrant pain
[2021-07-09 07:16] LABS: Albumin Globulin Ratio 0.4 (0.9-2); Bilirubin,Total 0.8 mg/dl (0.2-1); Globulin 4.2 gm/dl (2.5-4.0)
[2021-07-09] MEDS: POLYETHYLENE (MIRALAX) 17 GM PACK PO SCH ×2 (07:50→20:32)
[2021-07-09] MEDS: PANCREAZE (LIPASE 10,500U) CAP PO SCH ×3 (07:52→16:25)
[2021-07-09] MEDS: HYDROCORTISONE SOD 100 MG in SYRINGE 0 ML IV SCH ×3 (07:52→23:51)
[2021-07-09] MEDS: FAMOTIDINE 20 MG in SYRINGE 3 ML IV SCH ×2 (07:52→20:31)
[2021-07-09] MEDS: METOCLOPRAMIDE HCL 10 MG TABLET PO SCH ×3 (07:52→16:25)
[2021-07-09] MEDS: PANTOprazole 40 MG TAB PO SCH ×2 (07:52→20:32)
[2021-07-09] MEDS: cefTRIAXone SODIUM 2,000 MG in DEXTROSE 5% 50 ML IV SCH (07:52)
[2021-07-09] MEDS: DOCUSATE SODIUM 100 MG CAP PO SCH ×2 (07:52→20:31)
[2021-07-09] MEDS: fentaNYL 75 MCG/HR TDSY TD SCH (12:06)
[2021-07-09] MEDS: oxyCODONE HCL IR 5 MG TAB (IMMEDIATE RELEASE) PO PRN (12:07)
[2021-07-09] MEDS: LACTATED RINGER'S 1,000 ML IV SCH (17:19)
[2021-07-09] MEDS ORDERED: POTASSIUM CHLORIDE CRTAB 20 MEQ TABCR PO SCH (17:30)
--- NOTE | 2021-07-09 18:26 | Billing Data ---
Date of Service July 09, 2021 Coding Level of Care Code 88745 Subseq Hosp Care Lvl 3
[2021-07-09] MEDS: GABAPENTIN 300 MG CAP PO SCH (20:31)
[2021-07-09] MEDS ORDERED: LORazepam 1 MG TAB PO STA (20:49)
[2021-07-10] MEDS: LACTATED RINGER'S 1,000 ML IV SCH ×4 (01:18→23:30)
[2021-07-10] MEDS: ONDANSETRON INJ 2 MG/ML 2 ML VIAL IV SCH ×4 (04:07→20:02)
--- NOTE | 2021-07-10 07:08 | Hospitalist Progress Note ---
Date of Service July 10, 2021 Assessment & Plan (1) Ascites: Plan: Metastatic pancreatic cancer with abdominal ascites: Presented with worsening abdominal pain and ascites. Currently undergoing chemotherapy at the direction of Dr. Mcfarland. CTAP unfortunately showed new liver mets in the lateral aspect of the right lobe of the liver, as well as a developing biloma. Moderate volume ascites also noted. Therapeutic paracentesis ordered. Concern for SBP given her paracentesis showed PMN cells >250. Administered first dose of Ceftriaxone 2g yesterday. Pain control as described below. After talking with the patient, Dr. Mcfarland and Gustavo agreed to resume outpatient treatment of her cancer most likely causing the ascites. They will continue with another chemotherapy regimen once she is discharged. Please refer to Dr. Mcfarland's note for further clarification on treatment plans. 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 Despite this regimen, patient has had worsening with inability to tolerate pain over the last 2 days. Will increase Fentanyl patch to 50mcg q3h, and add Dilaudid as needed for breakthrough pain. Consult placed to palliative care to assist with pain control. Home constipation regimen increased to account for increased narcotics; docusate BID and Miralax BID ordered and can titrate up as necessary. Patient is on chronic daily prednisone therapy. Given acute illness and hospitalization we will start stress dose steroids; Solu-Cortef 100 mg every 8 hours. Patient still having episodes of nausea/vomiting. Vomiting can come on an hour or so after eating, causes loss of appetite at times. On Zofran as well as Protonix and Pepcid for the nausea/vomiting. Given one dose of IV reglan when Zofran did not help with the nausea, although patient still vomiting at times. (3) SBP (spontaneous bacterial peritonitis): Plan: Patient's paracentesis showed PMN cells >250 (WBC's 711 with 40% neutrophils). Patient started on Ceftriaxone 2g daily and will get this regimen for 5 days before being transitioned to outpatient oral medications given that she is feeling better with the pain and without signs of infection. Patient will get last dose tomorrow. (4) Abdominal pain: Plan: Better after paracentesis, will gauge how the patient is feeling while eating food and discussed with patient possibility of scheduled outpatient therapeutic paracentesis while undergoing her treatment. Patient talked with Dr. Mcfarland about cancer treatment outpatient after discharge as discussed above. (5) Acute hyponatremia: Plan: Hyponatremia: History of, with most recent Na of 127 on discharge from [facility] on 06/28. Admitted with Na 122. Received 500cc NSS bolus in the ER. Serum osmolalility 254 mOsm, urine osmoles 401 mOsm but with urine sodium below 6 so may have some SIADH picture given patient's cancer and chemo treatment but not convinced of it due to diluted urine. No total fluid restriction for now. Fluids as needed. (6) Hypokalemia: Plan: Hypokalemia: Admitted with K of 3.4; will replete with IV and PO potassium chloride. Repeat BMP this morning pending. (7) History of GI bleed: Plan: History of GI Bleed, renal vein occlusion: Was previously diagnosed with renal vein occlusion and placed on Xarelto therapy. Recently discharged on 06/28 from [facility] for GI Bleed; at that time had Xarelto held due to bleeding. Patient is currently not on anticoagulation. Hgb this admission of 8.9, down from 10.2 on 06/28. Consult placed to Dr. Mcfarland given worsening abdominal mets and ascites, as well as for clarification regarding anticoagulation. Daily CBC while admitted. Transfuse PRBCs if Hgb <7 or symptomatic anemia. Plan: 70 yo F Hx metastatic pancreatic cancer, renal vein occlusion, recent GI Bleed, hyponatremia admitted for worsening hyponatremia, worsening abdominal pain, and ascites. Code Status: DNR/DNI FEN: clear liquid diet; hold fluids while awaiting urine and serum lytes/osms DVT ppx: defer anticoagulation pending Heme/Onc consult Dispo: Med/Surg with Telemetry Admission and Anticipated Discharge Date Admission Date: July 07, 2021 Supervising Physician Co-Signing Physician Notes I personally examined the patient and verified all gudino points of history and exam, discussed case, and agree with decision making with Dr Patiño Pain seems better, nausea not improved. Still vomiting, often at random. able to visit later, we were able to update him to the best of our ability and to his/patient satisfaction, answered all questions as best we could. Vitals noted, initially standing up in the room, appearing somewhat nauseated, there is scant but bilious vomitus and an emesis bag. HEENT normocephalic atraumatic mucous membranes moist. Breathing unlabored no accessory muscle use good effort. Skin shows no rashes no pallor or icterus. Neuro without focal deficits. Abdomen is soft, mild diffuse tenderness no guarding no rebound no rigidity, mild reaccumulation of ascites Nausea vomitingnonspecificlikely related to all going onmalignancy, medications, possible infection, etc. For now symptomatic carecontinue acid suppression, Reglan, Zofran, Marinol. Can titrate Marinol. Patient/ wondered about giving trial to medical marijuana as she has an approval card, and they would prefer that she initiated under physician supervision to monitor for potential neuropsych side effectsdiscussed with nursing supervisory historian who reviewed policyand this is allowed as long as we have identification of her medical marijuana card, labels from the dispensary that shows that it is a dispensary product, and only with Gummies or drops, nothing that is smoked or vape. Would appreciate ongoing assistance from palliative as far as management of the nausea as well abdominal painrelated to malignant ascitesnot clear if all just related to increased girth and stretch, versus SBP (possible SBPculture was negative, but leukocytes significantly high making polys greater than 250on ceftriaxone, at the same time all this inflammatory change may just be from the malignancy)at any rate continue ceftriaxone for 5 days. I am torn as to whether or not she was then moved towards antibiotic prophylaxisgiven that she potentially had an episode of SBP certainly she would meet criteria, but given that it was not entirely clear that this was SBP and not just malignant related ascites and inflammation, I am equally hesitant to put her on a long course of antibiotics one of her nausea is one of her primary symptoms. Progressive metastatic pancreatic cancerunfortunately poor prognosis. Palliative/oncology following as well. Had good discussions with patient and today regarding the cancer in general Otherwise as above, pharmacologic DVT prophylaxis relative contraindication due to her thrombocytopenia. Mechanical is of dubious benefit. Subjective Patient was seen at the bedside this morning. She had nausea and some anxiety last night and received ativan for it. She said she ate her dinner last night without problem and was eating her breakfast today without problem as well. When I asked her about going back home she said she would like to finish out the rest of her antibiotics here since she has to do a lot of things back home like cook. She would rather peacefully finish the antibiotics. She said her belly feels brand engineer, also was wondering about a second therapeutic paracentesis as she is worried about the swelling in her feet. Physical Exam Constitutional: WD/WN, vitals as above Eyes: PERRL, conjunctivae normal, anicteric sclerae Respiratory: normal respiratory effort, lungs clear to auscultation Cardiovascular: RRR, no murmur, no edema Gastrointestinal (Abdomen): Bowel sounds present in all 4 quadrants. No tenderness to palpation. Abdomen still distended. Results & Data Results & Data ([facility]) Vital Signs (Past 12 Hours) Vital Signs Temp Pulse Pulse Resp BP Pulse Ox 07/10/21 03:45 37 C 82 18 139/72 97 07/10/21 01:54 69 Resident Activity Tracking Resident Involvement: Resident Care Provided Care Provided: Adult Hospital Medicine (1) Abdominal pain Abdominal location: left upper quadrant Qualified Code(s): R10.12 - Left upper quadrant pain
[2021-07-10] MEDS: METOCLOPRAMIDE HCL 10 MG TABLET PO SCH ×3 (08:07→16:50)
[2021-07-10] MEDS: DOCUSATE SODIUM 100 MG CAP PO SCH ×2 (08:07→19:54)
[2021-07-10] MEDS: POLYETHYLENE (MIRALAX) 17 GM PACK PO SCH ×2 (08:07→19:54)
[2021-07-10] MEDS: HYDROCORTISONE SOD 100 MG in SYRINGE 0 ML IV SCH ×3 (08:07→23:30)
[2021-07-10] MEDS: FAMOTIDINE 20 MG in SYRINGE 3 ML IV SCH ×2 (08:07→19:54)
[2021-07-10] MEDS: CHECK fentaNYL PATCH PLACEMENT SCH ×2 (08:07→16:49)
[2021-07-10] MEDS: cefTRIAXone SODIUM 2,000 MG in DEXTROSE 5% 50 ML IV SCH (08:07)
[2021-07-10] MEDS: PANCREAZE (LIPASE 10,500U) CAP PO SCH ×3 (08:07→16:50)
[2021-07-10] MEDS: PANTOprazole 40 MG TAB PO SCH ×2 (08:07→19:54)
[2021-07-10] MEDS ORDERED: METOCLOPRAMIDE HCL INJ 5 MG/ML 2 ML VIAL IV STA (11:31)
[2021-07-10] MEDS: GABAPENTIN 300 MG CAP PO SCH (19:54)
--- NOTE | 2021-07-10 19:59 | Billing Data ---
Date of Service July 10, 2021 Coding Level of Care Code 71514 Subseq Hosp Care Lvl 3
[2021-07-10] MEDS ORDERED: LORazepam 1 MG TAB PO ONE (20:25)
[2021-07-11] MEDS: CHECK fentaNYL PATCH PLACEMENT SCH ×4 (00:05→21:23)
[2021-07-11] MEDS: ONDANSETRON INJ 2 MG/ML 2 ML VIAL IV SCH ×5 (04:01→20:17)
[2021-07-11 06:12] LABS: Basophils # (auto) 0.01 K/uL (0-0.2); Basophils % (auto) 0.2 %; Hematocrit (blood only) 30.7 % (37-47); Hemoglobin 9.8 g/dL (12.0-16.0); Immature Granulocytes # (auto) 0.03 K/uL (0.00-0.02); Immature Granulocytes % (auto) 0.5 %; Lymphocytes # (auto) 0.62 K/uL (1.2-3.4); Lymphocytes % (auto) 10.2 %; Mean Corpuscular Hemoglobin 27.8 pg (25-34); Mean Corpuscular Hgb Conc 31.9 g/dL (32-36); Mean Corpuscular Volume 87.2 fL (80-100); Mean Platelet Volume 9.4 fL (7.4-10.4); Monocytes # (auto) 0.56 K/uL (0.11-0.59); Monocytes % (auto) 9.2 %; Neutrophils # (auto) 4.87 K/uL (1.4-6.5); Neutrophils % (auto) 79.9 %; Platelet Count 101 K/uL (130-400); RDW Coefficient of Variation 14.9 % (11.5-14.5); RDW Standard Deviation 46.8 fL (36.4-46.3); Red Blood Count 3.52 M/uL (4.2-5.4); White Blood Count 6.09 K/uL (4.8-10.8)
--- NOTE | 2021-07-11 07:05 | Hospitalist Progress Note ---
Date of Service July 11, 2021 Assessment & Plan (1) Ascites: (2) Malignant neoplasm of pancreas metastatic to liver: (3) SBP (spontaneous bacterial peritonitis): (4) Abdominal pain: (5) Acute hyponatremia: (6) Hypokalemia: (7) History of GI bleed: Plan: 70 yo F Hx metastatic pancreatic cancer, renal vein occlusion, recent GI Bleed, hyponatremia admitted for worsening hyponatremia, worsening abdominal pain, and ascites. Abdominal ascites and pain: -Past history of pancreatic cancer. Currently undergoing chemotherapy at the direction of Dr. Mcfarland. -Most likely 2/2 pancreatic cancer mets to liver, no history of cirrhosis, fatty liver, portal hypertension. -CTA -> new liver mets. Moderate volume ascites also noted. -Therapeutic paracentesis -> Concern for SBP - PMN cells >250. IV rocephin 2mgs start date 07/10 -Pain control as described below. Metastatic pancreatic cancer with uncontrolled pain: -Pain from Pancreatic cancer vs ascites vs constipation vs combination of those. -On Fentanyl patch 50mcg q3h, and Dilaudid as needed for breakthrough pain. -Consult placed to palliative care. -Home constipation regimen increased to account for increased narcotics; docusate BID and Miralax BID ordered and can titrate up as necessary. -Patient is on chronic daily prednisone therapy. Given acute illness and hospitalization on stress dose steroids; Solu-Cortef 100 mg every 8 hours. -Palliative care following Intractable nausea/vomiting -Patient still having episodes of nausea/vomiting. On Zofran as well as Protonix and Pepcid for the nausea/vomiting. -Zyprexa added by palliative but not helping with the nausea and vomiting. -Start PPN. Hyponatremia: History of hyponatremia with most recent Na of 127 on discharge from [facility] on 06/28. Admitted with Na 122. Serum osmolalility 254 mOsm, urine osmoles 401 mOsm but with urine sodium below 6 - SIADH picture given patient's cancer and chemo treatment Monitor Na level. Hypokalemia: 2/2 increased vomiting. Admitted with K of 3.4; Continue repletion History of GI Bleed, renal vein occlusion: Was previously diagnosed with renal vein occlusion and placed on Xarelto therapy. Recently discharged on 06/28 from [facility] for GI Bleed; at that time had Xarelto held due to bleeding. Patient is currently not on anticoagulation. Hgb this admission of 8.9, down from 10.2 on 06/28. Dr. Mcfarland consulted and aware. Code Status: DNR/DNI FEN: clear liquid diet; hold fluids while awaiting urine and serum lytes/osms DVT ppx: defer anticoagulation pending Heme/Onc consult Dispo: Med/Surg with Telemetry Admission and Anticipated Discharge Date Admission Date: July 07, 2021 Supervising Physician Co-Signing Physician Notes Resident Physician Supervision Note: I independently interviewed and examined the patient and verified the gudino history and physical, reviewed labs and image studies and agree with resident Dr. Patiño findings and care plan. Subjective Patient seen at the bedside this morning. She is still feeling bad and throwing up multiple times during the day. She cannot keep anything down and is feeling pain in the left side of her belly. Denies any fevers or chills, chest pain, shortness of breath. Physical Exam Constitutional: WD/WN, vitals as above Eyes: PERRL, conjunctivae normal, anicteric sclerae Respiratory: normal respiratory effort, lungs clear to auscultation Cardiovascular: RRR, no murmur, no edema Gastrointestinal (Abdomen): Bowel sounds present in all 4 quadrants, abdomen with mild distention as previously noted. Tender to palpation in the left upper and left lower quadrants. Results & Data Results & Data ([facility]) Vital Signs (Past 12 Hours) Vital Signs Temp Pulse Pulse Resp BP Pulse Ox 07/11/21 04:19 36.8 C 83 20 144/74 H 96 07/11/21 02:22 67 07/10/21 22:56 36.9 C 74 20 132/79 96 07/10/21 19:15 36.7 C 68 18 154/71 H 97 Resident Activity Tracking Resident Involvement: Resident Care Provided Care Provided: Adult Hospital Medicine (1) Abdominal pain Abdominal location: left upper quadrant Qualified Code(s): R10.12 - Left upper quadrant pain
[2021-07-11 07:12] LABS: BUN Creatinine Ratio 41.3 (10-20); Blood Urea Nitrogen 9 mg/dl (7-18); Calcium 8.6 mg/dl (8.5-10.1); Carbon Dioxide 38 mmol/L (21-32); Chloride 91 mmol/L (98-107); Creatinine Clr Calc Pharmacy 202.5 ml/min; Est GFR (African American) > 150.0 ml/min; Est GFR (Non-African American) 130.3 ml/min; Glucose 179 mg/dl (70-99); Potassium 2.5 mmol/L (3.5-5.1); Sodium 134 mmol/L (136-145)
[2021-07-11] MEDS ORDERED: POTASSIUM CHLORIDE CRTAB 20 MEQ TABCR PO STA (07:15)
[2021-07-11] MEDS: METOCLOPRAMIDE HCL 10 MG TABLET PO SCH (07:26)
[2021-07-11] MEDS: POTASSIUM CHLORIDE / WTR 10 MEQ/100 ML PLCT IV SCH ×8 (08:01→19:09)
[2021-07-11] MEDS: HYDROCORTISONE SOD 100 MG in SYRINGE 0 ML IV SCH ×3 (08:08→23:49)
[2021-07-11] MEDS: POLYETHYLENE (MIRALAX) 17 GM PACK PO SCH ×2 (08:09→20:16)
[2021-07-11] MEDS: PANCREAZE (LIPASE 10,500U) CAP PO SCH ×3 (08:09→16:58)
[2021-07-11] MEDS: PANTOprazole 40 MG TAB PO SCH ×2 (08:09→20:16)
[2021-07-11] MEDS: DOCUSATE SODIUM 100 MG CAP PO SCH ×2 (08:09→20:16)
[2021-07-11] MEDS: LACTATED RINGER'S 1,000 ML IV SCH ×3 (08:10→23:53)
[2021-07-11] MEDS: FAMOTIDINE 20 MG in SYRINGE 3 ML IV SCH ×2 (08:21→20:23)
[2021-07-11] MEDS: cefTRIAXone SODIUM 2,000 MG in DEXTROSE 5% 50 ML IV SCH (11:09)
[2021-07-11] MEDS ORDERED: OLANZapine ZYDIS 5 MG ORALLY DIS. TAB PO ONE (11:30)
[2021-07-11] MEDS: HYDROmorphone INJ 0.5 MG/0.5 ML SYR IV PRN (11:40)
--- NOTE | 2021-07-11 11:40 | Ultrasound Report ---
US duplex portal hepatic veins CLINICAL HISTORY: Left upper quadrant pain, hx pancreatic cancer. Assess for portal vein thrombosis. COMPARISON STUDY: Abdomen and pelvis CT 07/07/2021. FINDINGS: The portal and hepatic veins appear patent and demonstrate normal direction of flow. Hepati c artery is also widely patent. The portosplenic confluence is patent. IMPRESSION: No evidence for portal vein thrombosis. ACT 112: Negative or not required by law. Electronically signed by: Cornelius Khan M.D. 07/11/2021 11:38 AM
--- NOTE | 2021-07-11 11:42 | XRay Report ---
KUB CLINICAL HISTORY: Left-sided abdominal pain. Pancreatic cancer. COMPARISON STUDY: CT of the abdomen and pelvis July 07, 2021 FINDINGS: Metallic, bile duct stent is noted. Pneumobilia is present. This was shown on prior CT. The bowel gas pattern is normal. [id number] is partially imaged. Mild to moderate stool is present. IMPRESSION: 1. No evidence for a bowel obstruction. 2. No change in position of the common bile duct stent. ACT 112: Negative or not required by law. Electronically signed by: Chris Abreu M.D. 07/11/2021 11:41 AM
--- NOTE | 2021-07-11 12:01 | Palliative Care Progress Note ---
Date of Service July 11, 2021 Assessment & Plan (1) Abdominal pain: Plan: Fentanyl increased over weekend. She has not been using prn medications. Would be cautious with increasing fentanyl quickly to avoid oversedation. Her BMI is borderline for effective fentanyl absorption therefore, will monitor prn opioid use and increase dosing frequency to get a good sense of opioid requirement which can help adjust fentanyl dosing. (2) Nausea & vomiting: Plan: Refractory with routine zofran. She has not been able to tolerate po reglan well. KUB negative for obstruction or ileus. Will increase marinol and add zyprexa ODT in place of reglan. (3) Palliative care encounter: Plan: I talked with Mr and Mrs Hernández at bedside. We reviewed symptom management issues. They are eager to control symptoms and help her feel better to resume treatment. "She will fight". (4) SBP (spontaneous bacterial peritonitis): (5) Abdominal ascites: (6) Malignant neoplasm of pancreas metastatic to liver: Admission and Anticipated Discharge Date Admission Date: July 07, 2021 Subjective Having severe nausea with frequent emesis of brownish fluid. Was able to eat some cheerios for breakfast. Also complaining of severe pain LUQ that feels "tense". She feels like she needs to move her bowels. LBM 2 days ago. KUB shows mild to moderate stool with no obstruction or ileus. Review of Systems Review of Systems: Lee Symptom Assessment Scale Pain 3/3 Dyspnea 0/3 Anxiety 2/3 Nausea 3/3 Anorexia 2/3 Fatigue 2/3 Drowsiness 0/3 Palliative Performance Score 50% Physical Exam Constitutional: + ill appearing Respiratory: normal respiratory effort; no labored breathing Cardiovascular: Extremities: + edema (lower extremities) Gastrointestinal (Abdomen): distended, LUQ tenderness Musculoskeletal: Extremities: + muscle hypertrophy Neurologic: awake and + confused (mild confusion) Results & Data ([facility]) Vital Signs (Past 12 Hours) Vital Signs Temp Pulse Pulse Resp BP Pulse Ox Pulse Ox 07/11/21 10:55 96 07/11/21 07:45 98.1 F 68 16 151/77 H 96 07/11/21 07:18 84 07/11/21 04:19 98.2 F 83 20 144/74 H 96 07/11/21 02:22 67 PG Care Time/CCT Total # of Minutes Spent Total Time Spent: 45 Total Time Spent with Patient: Total time spent is greater than 50% in coordination of care (as documented) at patient's floor/unit and/or counseling patient: symptom management, patient and family education and support Coding Level of Care Code 48819 Subseq Hosp Care Lvl 3 Diagnoses Abdominal pain R10.12 Abdominal location: left upper quadrant Nausea & vomiting R11.2 Palliative care encounter Z51.5 SBP (spontaneous bacterial peritonitis) K65.2 Abdominal ascites R18.0 Ascites type: malignant Malignant neoplasm of pancreas metastatic to liver C25.9; C78.7 (1) Abdominal ascites Ascites type: malignant Qualified Code(s): R18.0 - Malignant ascites (2) Abdominal pain Abdominal location: left upper quadrant Qualified Code(s): R10.12 - Left upper quadrant pain
--- NOTE | 2021-07-11 14:03 | Ultrasound Report ---
US abdomen ltd ascites CLINICAL HISTORY: Ascites. Pancreatic cancer. Left abdominal pain. COMPARISON STUDY: CT of the abdomen and pelvis July 07, 2021. TECHNIQUE: Sonography of the abdomen and pelvis was performed to assess for ascites. FINDINGS: Minimal ascites was noted within the abdomen and pelvis. IMPRESSION: Minimal ascites. ACT 112: Negative or not required by law. Electronically signed by: Chris Abreu M.D. 07/11/2021 2:01 PM
[2021-07-11 14:24] LABS: BUN Creatinine Ratio 27.6 (10-20); Calcium 8.5 mg/dl (8.5-10.1); Creatinine Clr Calc Pharmacy 159.1 ml/min; Est GFR (African American) 139.5 ml/min; Est GFR (Non-African American) 120.3 ml/min
[2021-07-11] MEDS ORDERED: POTASSIUM CHLORIDE / WTR 10 MEQ/100 ML PLCT IV STA (14:52)
[2021-07-11] MEDS ORDERED: SOD PHOSPHATE/SOD BIPHOSPHATE ENEMA 132 ML BTL PR PRN (15:02)
[2021-07-11] MEDS ORDERED: Custom Peripheral Pn 1 ML in TPN BAG 0 ML IV SCH (16:00)
[2021-07-11] MEDS ORDERED: TPN/PPN CONSULT PHARMACY SCH (17:24)
[2021-07-11 17:25] LABS: Hematocrit (blood only) 33.1 % (37-47); Hemoglobin 10.6 g/dL (12.0-16.0); Mean Corpuscular Hemoglobin 27.7 pg (25-34); Mean Corpuscular Volume 86.4 fL (80-100); Mean Platelet Volume 9.7 fL (7.4-10.4); Platelet Count 133 K/uL (130-400); RDW Coefficient of Variation 14.9 % (11.5-14.5); RDW Standard Deviation 46.4 fL (36.4-46.3); Red Blood Count 3.83 M/uL (4.2-5.4)
[2021-07-11 17:44] LABS: Calcium 8.6 mg/dl (8.5-10.1); Creatinine Clr Calc Pharmacy 171.3 ml/min; Est GFR (African American) 142.9 ml/min; Est GFR (Non-African American) 123.3 ml/min; Magnesium 2.2 mg/dl (1.8-2.4)
[2021-07-11 17:47] LABS: Bilirubin,Total 1.1 mg/dl (0.2-1); Phosphorus 2.5 mg/dl (2.5-4.9)
--- NOTE | 2021-07-11 18:55 | XRay Report ---
XR chest 1V portable CLINICAL HISTORY: confirm IV placement TECHNIQUE: Single frontal radiograph of the chest was obtained. Comparison: Comparison is made to chest radiograph 06/17/2021 FINDINGS: Stable port catheter. The cardiomediastinal silhouette is normal. Bibasilar atelectasis is noted. No evidence of pleural effusion or pneumothorax. IMPRESSION: Right port catheter with the tip in the lower SVC. ACT 112: Negative or not required by law. Electronically signed by: Leroy Qucik M.D. 07/11/2021 6:53 PM
[2021-07-11] MEDS: THIAMINE HCL 500 MG in 0.9 % SODIUM CHLORIDE 100 ML IV SCH (20:14)
[2021-07-11] MEDS: GABAPENTIN 300 MG CAP PO SCH (20:16)
[2021-07-11] MEDS ORDERED: OLANZapine ZYDIS 5 MG ORALLY DIS. TAB PO SCH (21:00)
[2021-07-11] MEDS ORDERED: LORazepam 1 MG TAB PO PRN (21:00)
[2021-07-11] MEDS: oxyCODONE HCL IR 5 MG TAB (IMMEDIATE RELEASE) PO PRN (23:49)
[2021-07-12] MEDS: THIAMINE HCL 500 MG in 0.9 % SODIUM CHLORIDE 100 ML IV SCH ×3 (02:37→17:53)
[2021-07-12] MEDS: ONDANSETRON INJ 2 MG/ML 2 ML VIAL IV SCH ×4 (02:37→21:46)
--- NOTE | 2021-07-12 07:26 | Hospitalist Progress Note ---
Date of Service July 12, 2021 Assessment & Plan (1) Ascites: (2) Malignant neoplasm of pancreas metastatic to liver: (3) SBP (spontaneous bacterial peritonitis): (4) Abdominal pain: (5) Acute hyponatremia: (6) Hypokalemia: (7) History of GI bleed: Plan: 70 yo F Hx metastatic pancreatic cancer, renal vein occlusion, recent GI Bleed, hyponatremia admitted for worsening hyponatremia, worsening abdominal pain, and ascites. Abdominal ascites and pain: -Past history of pancreatic cancer. Currently undergoing chemotherapy at the direction of Dr. Mcfarland. -Most likely 2/2 pancreatic cancer mets to liver, no history of cirrhosis, fatty liver, portal hypertension. -CTA -> new liver mets. Moderate volume ascites also noted. -Therapeutic paracentesis -> Concern for SBP - PMN cells >250. IV rocephin 2mgs start date 07/10 -Pain control as described below. Metastatic pancreatic cancer with uncontrolled pain: -Pain from Pancreatic cancer vs ascites vs constipation vs combination of those. -On Fentanyl patch 50mcg q3h, and Dilaudid as needed for breakthrough pain. -Consult placed to palliative care. -Home constipation regimen increased to account for increased narcotics; docusate BID and Miralax BID ordered and can titrate up as necessary. -Patient is on chronic daily prednisone therapy. Given acute illness and hospitalization on stress dose steroids; Solu-Cortef 100 mg every 8 hours. -Palliative care following Intractable nausea/vomiting -Patient still having episodes of nausea/vomiting. On Zofran as well as Protonix and Pepcid for the nausea/vomiting. -Zyprexa added by palliative care. follow. -Start PPN. Hyponatremia: History of hyponatremia with most recent Na of [address] [facility] on 06/28. Admitted with Na 122. Serum osmolalility 254 mOsm, urine osmoles 401 mOsm but with urine sodium below 6 - SIADH picture given patient's cancer and chemo treatment Monitor Na level. Hypokalemia: 2/2 increased vomiting. Admitted with K of 3.4; Continue repletion History of GI Bleed, renal vein occlusion: Was previously diagnosed with renal vein occlusion and placed on Xarelto therapy. Recently discharged on 06/[address] [facility] for GI Bleed; at that time had Xarelto held due to bleeding. Patient is currently not on anticoagulation. Hgb this admission of 8.9, down from 10.2 on 06/28. Dr. Mcfarland consulted and aware. Code Status: DNR/DNI FEN: clear liquid diet; hold fluids while awaiting urine and serum lytes/osms DVT ppx: defer anticoagulation pending Heme/Onc consult Dispo: Med/Surg with Telemetry Admission and Anticipated Discharge Date Admission Date: July 07, 2021 Supervising Physician Co-Signing Physician Notes Resident Physician Supervision Note: I independently interviewed and examined the patient and verified the gudino history and physical, reviewed labs and image studies and agree with resident Dr. Patiño findings and care plan. Subjective Patient seen at bedside this morning. Patient's nausea and vomiting has not changed since yesterday. She says she feels her abdominal pain has some mild improvement and feels better overall from when she first came in. Says she had a bowel movement yesterday but it was still hard consistency and thin. No fevers, chills, shortness of breath, chest pain. Physical Exam Constitutional: WD/WN, vitals as above Eyes: PERRL, conjunctivae normal, anicteric sclerae Respiratory: normal respiratory effort, lungs clear to auscultation Cardiovascular: RRR, no murmur, no edema Gastrointestinal (Abdomen): Bowel sounds auscultated in all 4 quadrants. Tenderness in left quadrants more than right in the morning, equally tender to both sides in the afternoon. Abdomen with moderate distention but same as yesterday. Results & Data Results & Data ([facility]) Vital Signs (Past 12 Hours) Vital Signs Temp Pulse Pulse Resp BP Pulse Ox 07/12/21 03:00 36.8 C 86 18 158/78 H 95 07/12/21 00:52 36.8 C 83 16 163/83 H 98 07/11/21 23:59 77 07/11/21 20:37 36.7 C 18 150/83 H 96 Resident Activity Tracking Resident Involvement: Resident Care Provided Care Provided: Adult Hospital Medicine (1) Abdominal pain Abdominal location: left upper quadrant Qualified Code(s): R10.12 - Left upper quadrant pain
[2021-07-12 08:31] LABS: BUN Creatinine Ratio 26.9 (10-20); Calcium 8.9 mg/dl (8.5-10.1); Est GFR (African American) 132.1 ml/min; Magnesium 2.2 mg/dl (1.8-2.4); Potassium 2.8 mmol/L (3.5-5.1)
[2021-07-12 08:32] LABS: Phosphorus 2.7 mg/dl (2.5-4.9)
[2021-07-12] MEDS: cefTRIAXone SODIUM 2,000 MG in DEXTROSE 5% 50 ML IV SCH (09:22)
[2021-07-12] MEDS: FAMOTIDINE 20 MG in SYRINGE 3 ML IV SCH ×2 (09:23→21:46)
[2021-07-12] MEDS: LACTATED RINGER'S 1,000 ML IV SCH ×2 (09:24→17:52)
[2021-07-12] MEDS: CHECK fentaNYL PATCH PLACEMENT SCH ×2 (09:28→16:38)
[2021-07-12] MEDS: HYDROCORTISONE SOD 100 MG in SYRINGE 0 ML IV SCH ×2 (09:29→17:52)
--- NOTE | 2021-07-12 09:44 | Pharmacy Report ---
Pharmacy PN Initial Consult - Date of Service July 12, 2021 - Scope Pharmacy has been consulted to manage parenteral nutrition orders and order appropriate labs. As part of the Nutrition Support Team guidelines, pharmacy will work in conjunction with dietary when determining the patients caloric needs. - Subjective The patient is a 70 year old F admitted on 07/07/21 05:11 for HYPONATREMIA, PAINFUL ASCITES. Patient is to receive parenteral nutrition for prolonged NPO, recurrent NV . - Objective Height: 5 ft 3 in Weight: 61 kg Diet: Clear Liquid Vascular Access:: peripheral access to be used for PPN [place] central access for chemo only Intake & Output (Last 24Hrs): Intake & Output 07/10/21 07/11/21 07/12/21 07/13/21 06:59 06:59 06:59 06:59 Intake Total 1067.917 / 5838.884 0003.583 / 3019.583 4083.333 / 4083.333 1000 / 1000 Output Total 300 / 300 Balance 767.917 / 049.727 6898.583 / 3019.583 4083.333 / 4083.333 1000 / 1000 Weight 57.3 kg 58.3 kg 61 kg Laboratory Data (Last 24 Hrs):: 07/11/21 07/11/21 07/12/21 13:40 17:10 07:32 Sodium 133 L 133 L 133 L Potassium 3.0 L D 3.0 L 2.8 L Chloride 90 L 90 L 89 L Carbon Dioxide 34 H 35 H 35 H BUN 8 7 9 Creatinine 0.28 L 0.26 L 0.33 L Glucose 217 H 204 H 190 H Calcium 8.5 8.6 8.9 Phosphorus 2.5 2.7 Magnesium 2.2 2.2 Total Bilirubin 1.1 H AST 14 L ALT 26 Alkaline Phosphatase 454 H Triglycerides 125 Nutrition Assessment:: Please refer to the Notes section of the EMR for the most recent video producer note. - Assessment PPN volume complicated by ascites- max volume for PPN is ~1 liter. Provider would like to keep total volume per day under 2 liters. Pt is requiring significant electrolyte repletion so will keep PPN close to 1 liter. Multiple electrolyte abnormalities- discussed with provider. Will replace/repeat 40meq KCL IV and re-check labs at 1600. Able to get ~ 60meq K+ in PPN for 07/12 which will increase TDD of K+ from 80 meq yesterday to 100 meq today. - Plan For day 1 of PN administration, the following will be ordered: Macronutrients Amino acids 40 grams/day Dextrose 50 grams/day Lipids 20 grams/day Micronutrients Sodium chloride 77 mEq Potassium phosphate 15 mMol Potassium chloride 40 mEq Multivitamins 10 mL Trace Elements 10 mL Additional additives: Folic acid 1 mg (thamine being given as 500mg IVPB TID and pepcid being given as IVP BID) Total volume 1000 mL to be infused over 24 hrs will provide 550 kcal/day Final osmolarity 898 mOsm/L (maximum for PPN is 900 mOsm/L) Labs to be ordered per PN order protocol Pharmacy will follow and adjust parenteral nutrition orders on a daily basis. Thank you.
[2021-07-12] MEDS: POTASSIUM CHLORIDE / WTR 10 MEQ/100 ML PLCT IV SCH ×4 (10:45→13:58)
[2021-07-12] MEDS ORDERED: Nursing to Pharmacy Communication SCH (12:30)
[2021-07-12] MEDS: POLYETHYLENE (MIRALAX) 17 GM PACK PO SCH ×2 (12:32→22:15)
[2021-07-12] MEDS: DOCUSATE SODIUM 100 MG CAP PO SCH ×2 (12:32→22:15)
[2021-07-12] MEDS: fentaNYL 75 MCG/HR TDSY TD SCH (13:07)
[2021-07-12] MEDS: PANTOprazole 40 MG TAB PO SCH (14:31)
[2021-07-12] MEDS: PANCREAZE (LIPASE 10,500U) CAP PO SCH (14:31)
[2021-07-12 15:14] LABS: BUN Creatinine Ratio 36.1 (10-20); Calcium 8.6 mg/dl (8.5-10.1); Creatinine Clr Calc Pharmacy 178.2 ml/min; Est GFR (African American) 144.8 ml/min; Est GFR (Non-African American) 124.9 ml/min; Potassium 3.5 mmol/L (3.5-5.1)
[2021-07-12] MEDS ORDERED: Custom Peripheral Pn 1,000 ML in TPN BAG 0 ML IV SCH (16:00)
[2021-07-12] MEDS ORDERED: DEXTROSE 10% 1,000 ML IV PRN (16:00)
[2021-07-12] MEDS: HYDROmorphone INJ 0.5 MG/0.5 ML SYR IV PRN (20:29)
[2021-07-12] MEDS: PANTOprazole 40 MG in SYRINGE 0 ML IV SCH (21:46)
[2021-07-12] MEDS: GABAPENTIN 300 MG CAP PO SCH ×2 (21:49→22:15)
[2021-07-13] MEDS: CHECK fentaNYL PATCH PLACEMENT SCH ×3 (01:26→17:08)
[2021-07-13] MEDS: HYDROCORTISONE SOD 100 MG in SYRINGE 0 ML IV SCH ×3 (01:38→17:09)
[2021-07-13] MEDS: LACTATED RINGER'S 1,000 ML IV SCH ×3 (01:45→19:12)
[2021-07-13] MEDS: THIAMINE HCL 500 MG in 0.9 % SODIUM CHLORIDE 100 ML IV SCH ×3 (01:54→17:12)
[2021-07-13] MEDS: ONDANSETRON INJ 2 MG/ML 2 ML VIAL IV SCH ×4 (03:55→21:31)
--- NOTE | 2021-07-13 06:58 | Hospitalist Progress Note ---
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 Abdominal ascites and pain: -Past history of pancreatic cancer. Currently undergoing chemotherapy at the direction of Dr. Mcfarland. -Recent PET scan with extensive mets and peritoneal carcinomatosis -CTA -> new liver mets. Moderate volume ascites also noted. -Therapeutic paracentesis -> Concern for SBP - PMN cells >250. IV rocephin 2mgs start date 07/10 -Pain control as described below. Intractable nausea/vomiting -Patient still having episodes of nausea/vomiting. On Zofran as well as Protonix and Pepcid for the nausea/vomiting. -Haloperidol added by palliative care. follow. -Continue PPN Metastatic pancreatic cancer with uncontrolled pain: -Pain from Pancreatic cancer vs ascites vs constipation vs combination of those. -PET scan 06/20 showed mets to lung, liver, and peritoneal carcinomatosis with associated ascites. -On Fentanyl patch 50mcg q3h, and Dilaudid as needed for breakthrough pain. -docusate BID and Miralax BID ordered and can titrate up as necessary. -Patient is on chronic daily prednisone therapy. Given acute illness and hospitalization on stress dose steroids; Solu-Cortef 100 mg every 8 hours. -Palliative care following Hyperglycemia: -Glucose readings upper 100's-low to mid 200's -Possibly secondary to pancreatic cancer vs stress from vomiting. -Started SQ SSI, Q6 BSG. Hyponatremia: History of hyponatremia with most recent Na of 127 on discharge from [facility] on 06/28. Admitted with Na 122. Serum osmolalility 254 mOsm, urine osmoles 401 mOsm but with urine sodium below 6. Monitor Na level. Hypokalemia: 2/2 increased vomiting. Admitted with K of 3.4; Continue repletion History of GI Bleed, renal vein occlusion: Was previously diagnosed with renal vein occlusion and placed on Xarelto therapy. Recently discharged on 06/28 from [facility] for GI Bleed; at that time had Xarelto held due to bleeding. Patient is currently not on anticoagulation. Hgb this admission of 8.9, down from 10.2 on 06/28. Dr. Mcfarland consulted and aware. Code Status: DNR/DNI FEN: clear liquid diet; hold fluids while awaiting urine and serum lytes/osms DVT ppx: defer anticoagulation pending Heme/Onc consult Dispo: Med/Surg with Telemetry Admission and Anticipated Discharge Date Admission Date: July 07, 2021 Supervising Physician Co-Signing Physician Notes Resident Physician Supervision Note: I independently interviewed and examined the patient and verified the gudino history and physical, reviewed labs and image studies and agree with resident Dr. Patiño findings and care plan. Subjective Patient seen at the bedside this morning. Patient said her pain is better than yesterday. Vomiting is less frequent and less in volume, most likely due to NPO. Denies fevers, chills, shortness of breath, chest pain. Physical Exam Constitutional: WD/WN, vitals as above Eyes: PERRL, conjunctivae normal, anicteric sclerae Respiratory: normal respiratory effort, lungs clear to auscultation Cardiovascular: RRR, no murmur, no edema Gastrointestinal (Abdomen): Abdomen mild to moderate distention, tender to palpation at LLQ. BS+ 4 quadrants. Results & Data Results & Data ([facility]) Vital Signs (Past 12 Hours) Vital Signs Temp Pulse Pulse Resp BP Pulse Ox 07/13/21 03:00 37 C 87 18 152/82 H 96 07/12/21 23:00 96 H 07/12/21 22:56 37 C 106 H 20 152/84 H 97 07/12/21 19:00 36.8 C 107 H 18 162/85 H 96 Resident Activity Tracking Resident Involvement: Resident Care Provided Care Provided: Adult Hospital Medicine (1) Abdominal pain Abdominal location: left upper quadrant Qualified Code(s): R10.12 - Left upper quadrant pain
[2021-07-13 07:04] LABS: Basophils # (auto) 0.01 K/uL (0-0.2); Basophils % (auto) 0.1 %; Hematocrit (blood only) 33.3 % (37-47); Hemoglobin 10.5 g/dL (12.0-16.0); Immature Granulocytes # (auto) 0.04 K/uL (0.00-0.02); Immature Granulocytes % (auto) 0.3 %; Lymphocytes # (auto) 0.57 K/uL (1.2-3.4); Lymphocytes % (auto) 4.5 %; Mean Corpuscular Hemoglobin 27.7 pg (25-34); Mean Corpuscular Hgb Conc 31.5 g/dL (32-36); Mean Corpuscular Volume 87.9 fL (80-100); Mean Platelet Volume 9.3 fL (7.4-10.4); Monocytes # (auto) 0.31 K/uL (0.11-0.59); Monocytes % (auto) 2.4 %; Neutrophils # (auto) 11.83 K/uL (1.4-6.5); Neutrophils % (auto) 92.7 %; Platelet Count 148 K/uL (130-400); RDW Coefficient of Variation 15.4 % (11.5-14.5); RDW Standard Deviation 48.6 fL (36.4-46.3); Red Blood Count 3.79 M/uL (4.2-5.4); White Blood Count 12.76 K/uL (4.8-10.8)
[2021-07-13 07:27] LABS: BUN Creatinine Ratio 38.4 (10-20); Calcium 8.3 mg/dl (8.5-10.1); Creatinine Clr Calc Pharmacy 160.5 ml/min; Est GFR (African American) 136.4 ml/min; Est GFR (Non-African American) 117.7 ml/min; Magnesium 2.4 mg/dl (1.8-2.4); Potassium 3.3 mmol/L (3.5-5.1)
[2021-07-13 07:28] LABS: Phosphorus 2.5 mg/dl (2.5-4.9)
[2021-07-13] MEDS: cefTRIAXone SODIUM 2,000 MG in DEXTROSE 5% 50 ML IV SCH (08:49)
[2021-07-13] MEDS: PANTOprazole 40 MG in SYRINGE 0 ML IV SCH ×2 (08:49→21:30)
[2021-07-13] MEDS: POTASSIUM CHLORIDE / WTR 10 MEQ/100 ML PLCT IV SCH ×4 (08:49→12:16)
[2021-07-13] MEDS: POLYETHYLENE (MIRALAX) 17 GM PACK PO SCH ×2 (08:50→23:30)
[2021-07-13] MEDS: FAMOTIDINE 20 MG in SYRINGE 3 ML IV SCH ×2 (08:50→21:30)
[2021-07-13] MEDS: DOCUSATE SODIUM 100 MG CAP PO SCH ×2 (08:50→23:29)
[2021-07-13] MEDS ORDERED: DEXTROSE 50% 50 ML SYRINGE IV PRN (09:42)
[2021-07-13] MEDS ORDERED: GLUCAGON FOR INJ 1 MG VIAL SQ PRN (09:42)
[2021-07-13] MEDS ORDERED: GLUCOSE 10 TABS/TUBE PO PRN (09:42)
[2021-07-13] MEDS ORDERED: CARBOHYDRATES FOR HYPOGLYCEMIA PO PRN (09:42)
[2021-07-13] MEDS ORDERED: GLUCOSE 40% GEL 15 GM TUBE PO PRN (09:42)
[2021-07-13] MEDS ORDERED: HALOPERIDOL 1 MG/0.5 ML UDP PO PRN (10:25)
--- NOTE | 2021-07-13 10:37 | Palliative Care Progress Note ---
Date of Service July 13, 2021 Assessment & Plan (1) Abdominal pain: Plan: Improved control with increased fentanyl. Discussed with Gustavo and her about managing pain at home. Hydromorphone effective due to fast onset of action. She does get relief with oxycodone though slower onset of action. Will trial oxycodone oral concentrate to improve onset of action and be feasible at home. (2) Nausea & vomiting: Plan: Continues to have emesis though denies feeling nausea. We could increase zyprexa but I am concerned about her being overly sedated. Will try haldol bid and stop zyprexa for dopamine receptor activity with less sedation. (3) Palliative care encounter: Plan: Dr. Nole spoke with family about concern for poor prognosis. I also spoke with Gustavo and her . Both are adjusting to the idea that her time is much shorter than anticipated. They asked about what next steps would be. We discussed what was important to her and how she would want to spend her remaining days. She would like to be at home with family. She has family who are planning to travel from [facility] in early July. They will be contacting them to see if visit can be moved up. We talked about hospice support and managing symptoms at home. Gustavo tells me that she thinks that is what she needs at this time. I met with Gustavo, her daughters, Kita and Daina, as well as her at bedside. We updated her daughters on concern that time is short for Gustavo. We reviewed options of continuing current level of care, though it does not appear likely that she would be able to pursue further cancer treatment as well as option for hospice at home. Gustavo is clear that she would prefer to have hospice support at home and enjoy her remaining time with her family. We reviewed hospice benefit and services and answered family questions about hospice. They have had [facility] home care support and would prefer to have [facility] hospice. Case management and Dr. Noel notified. 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 She feels that pain is better. She has generally been declining prn pain medication. Rates pain 3/10. She reports sleeping better at night. Feels tired today but able to participate in conversation. Review of Systems Review of Systems: [place] Symptom Assessment Scale Pain 1/3 Dyspnea 0/3 Nausea 2/3 Drowsiness 1/3 Physical Exam Constitutional: + ill appearing Respiratory: normal respiratory effort; no labored breathing Gastrointestinal (Abdomen): distended, nontender Musculoskeletal: Extremities: + muscle atrophy Neurologic: Speech / Cognition: normal cognition Results & Data ([facility]) Vital Signs (Past 12 Hours) Vital Signs Temp Pulse Pulse Resp BP Pulse Ox 07/13/21 07:49 98.1 F 100 H 18 127/82 92 07/13/21 07:46 99 H 07/13/21 03:00 98.6 F 87 18 152/82 H 96 07/12/21 23:00 96 H 07/12/21 22:56 98.6 F 106 H 20 152/84 H 97 PG Care Time/CCT Total # of Minutes Spent Total Time Spent: 65 Total Time Spent with Patient: Total time spent is greater than 50% in coordination of care (as documented) at patient's floor/unit and/or counseling patient: symptom management, goals of care, prognosis, hospice, patient and family education and support, coordination of care Coding Level of Care Code 48547 Subseq Hosp Care Lvl 3 Diagnoses Abdominal pain R10.12 Abdominal location: left upper quadrant Nausea & vomiting R11.2 Palliative care encounter Z51.5 SBP (spontaneous bacterial peritonitis) K65.2 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
[2021-07-13] MEDS: INSULIN ASPART 100 UNITS/ML 3 ML PEN SC SCH ×3 (12:56→21:31)
[2021-07-13] MEDS: HALOPERIDOL 1 MG/0.5 ML UDP PO SCH ×2 (12:57→21:30)
[2021-07-13] MEDS ORDERED: Custom Peripheral Pn 1,000 ML in TPN BAG 0 ML IV SCH (16:00)
[2021-07-13] MEDS: HYDROmorphone INJ 0.5 MG/0.5 ML SYR IV PRN (23:14)
[2021-07-13] MEDS: GABAPENTIN 300 MG CAP PO SCH (23:29)
[2021-07-14] MEDS: HYDROCORTISONE SOD 100 MG in SYRINGE 0 ML IV SCH ×3 (01:44→17:29)
[2021-07-14] MEDS: THIAMINE HCL 500 MG in 0.9 % SODIUM CHLORIDE 100 ML IV SCH ×3 (01:44→18:00)
[2021-07-14] MEDS: CHECK fentaNYL PATCH PLACEMENT SCH ×4 (01:44→23:21)
[2021-07-14] MEDS: LACTATED RINGER'S 1,000 ML IV SCH ×3 (02:11→17:30)
[2021-07-14] MEDS: HYDROmorphone INJ 0.5 MG/0.5 ML SYR IV PRN ×4 (03:43→20:16)
[2021-07-14] MEDS: ONDANSETRON INJ 2 MG/ML 2 ML VIAL IV SCH ×4 (03:44→21:07)
[2021-07-14 04:58] LABS: BUN Creatinine Ratio 44.8 (10-20); Calcium 8.8 mg/dl (8.5-10.1); Creatinine Clr Calc Pharmacy 96.3 ml/min; Est GFR (African American) 115.3 ml/min; Est GFR (Non-African American) 99.4 ml/min; Magnesium 2.1 mg/dl (1.8-2.4); Potassium 4.3 mmol/L (3.5-5.1)
[2021-07-14] MEDS ORDERED: HYDROmorphone INJ 0.5 MG/0.5 ML SYR IV PRN ×2 (05:58→11:00)
[2021-07-14] MEDS: INSULIN ASPART 100 UNITS/ML 3 ML PEN SC SCH ×4 (07:56→21:08)
[2021-07-14] MEDS: HALOPERIDOL 1 MG/0.5 ML UDP PO SCH (08:01)
[2021-07-14] MEDS: PANTOprazole 40 MG in SYRINGE 0 ML IV SCH ×2 (08:01→21:07)
[2021-07-14] MEDS: FAMOTIDINE 20 MG in SYRINGE 3 ML IV SCH ×2 (08:01→21:07)
[2021-07-14] MEDS: POLYETHYLENE (MIRALAX) 17 GM PACK PO SCH ×2 (08:03→21:04)
[2021-07-14] MEDS: DOCUSATE SODIUM 100 MG CAP PO SCH ×2 (08:03→21:02)
--- NOTE | 2021-07-14 08:07 | Hospitalist Progress Note ---
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 Abdominal ascites and pain: -Past history of pancreatic cancer. Currently undergoing chemotherapy at the direction of Dr. Mcfarland. -Recent PET scan with extensive mets and peritoneal carcinomatosis -Therapeutic paracentesis -> Concern for SBP - PMN cells >250. IV rocephin 2mgs start date 07/10 -Pain control as described below. Intractable nausea/vomiting -Patient still having episodes of nausea/vomiting. On Zofran as well as Protonix and Pepcid for the nausea/vomiting. -Haloperidol and octreotide added by palliative care. follow. -Continue PPN Metastatic pancreatic cancer with uncontrolled pain: -Pain from Pancreatic cancer vs ascites vs constipation vs combination of those. -PET scan 06/20 showed mets to lung, liver, and peritoneal carcinomatosis with associated ascites. -On Fentanyl patch 75mcg q3h, and Dilaudid as needed for breakthrough pain. -docusate BID and Miralax BID ordered and can titrate up as necessary. -Patient is on chronic daily prednisone therapy. Given acute illness and hospitalization on stress dose steroids; Solu-Cortef 100 mg q8hrs - wean to 50mgs q8hrs -Palliative care following Hyperglycemia: -Glucose readings upper 100's-low to mid 200's -Possibly secondary to pancreatic cancer vs stress from vomiting. -Started SQ SSI, Q6 BSG. Hyponatremia: History of hyponatremia with most recent Na of 127 on discharge from [facility] on 06/28. Admitted with Na 122. Serum osmolalility 254 mOsm, urine osmoles 401 mOsm but with urine sodium below 6. Monitor Na level. Hypokalemia: 2/2 increased vomiting. Admitted with K of 3.4; Continue repletion History of GI Bleed, renal vein occlusion: Was previously diagnosed with renal vein occlusion and placed on Xarelto therapy. Recently discharged on 06/28 from [facility] for GI Bleed; at that time had Xarelto held due to bleeding. Patient is currently not on anticoagulation. Hgb this admission of 8.9, down from 10.2 on 06/28. Dr. Mcfarland consulted and aware. Code Status: DNR/DNI FEN: PPN DVT ppx: Heparin flush Dispo: Med/Surg with Telemetry Admission and Anticipated Discharge Date Admission Date: July 07, 2021 Supervising Physician Co-Signing Physician Notes Resident Physician Supervision Note: I independently interviewed and examined the patient and verified the gudino history and physical, reviewed labs and image studies and agree with resident Dr. Patiño findings and care plan. Subjective Patient seen at bedside this morning. Patient said she has increased pain from yesterday and is still having nausea and vomiting. She was saying she is still thinking over what to do with her prognosis and the route she would like to take. Denies fevers, chills, shortness of breath, chest pain. Physical Exam Constitutional: WD/WN, vitals as above Eyes: PERRL, conjunctivae normal, anicteric sclerae Respiratory: normal respiratory effort, lungs clear to auscultation Cardiovascular: RRR, no murmur, no edema Gastrointestinal (Abdomen): Abdomen moderate distention, BS+ in all quadrants. Tenderness to palpation mostly left lower quadrant. Skin: Port in place in right upper chest. Results & Data Results & Data ([facility]) Vital Signs (Past 12 Hours) Vital Signs Temp Pulse Pulse Resp BP Pulse Ox 07/14/21 07:47 36.8 C 119 H 16 136/88 94 07/14/21 04:00 37.1 C 101 H 18 157/94 H 91 07/13/21 23:15 36.9 C 90 18 136/83 98 07/13/21 23:00 87 Resident Activity Tracking Resident Involvement: Resident Care Provided Care Provided: Adult Hospital Medicine (1) Abdominal pain Abdominal location: left upper quadrant Qualified Code(s): R10.12 - Left upper quadrant pain
[2021-07-14 09:41] LABS: Estimated Average Glucose 140 mg/dl; Hemoglobin A1C 6.5 % (4.5-5.6)
[2021-07-14] MEDS: INSULIN GLARGINE SOLOSTAR 100 UNITS/ML 3 ML PEN SC SCH (11:02)
--- NOTE | 2021-07-14 14:45 | Palliative Care Progress Note ---
Date of Service July 14, 2021 Assessment & Plan (1) Abdominal pain: Plan: Increase frequency of hydromorphone and oxycodone dosing prn. Ideally, we would want her to be controlled on oxycodone and fentanyl for discharge as parenteral medications will not be an option. (2) Vomiting: Plan: No improvement with haldol. Did seem to have some relief with zyprexa. Discussed likely increased drowsiness with increased dose of zyprexa with family. We will do 2.5mg dose now and at hs with routine 5mg hs dosing starting tomorrow. She may also benefit from octreotide as emesis is all GI secretions at this point. Will trial sq octreotide. (3) Palliative care encounter: Plan: Daughters concerned about her not getting nutrition without IVs. TPN started today. We discussed natural disease progression with decreased appetite and change in her metabolism with advancing disease. They are uncomfortable with no nutrition or hydration at this time. Continue TPN. We also discussed that this would not be covered by hospice. She could have [facility] palliative care at home on discharge. We reviewed the differences between hospice and [facility] home palliative care. 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 Very tired. Has difficulty following conversation at times. Having pain in LUQ. Has had oxycodone x 2 so far today. She also continues to have emesis of bile. Virtually no po intake. Family concerned about her nutrition. Review of Systems Review of Systems: [place] Symptom Assessment Scale Pain2/3 Dyspnea 0/3 Nausea 3/3 Anxiety 0/3 Fatigue 2/3 Drowsiness 1/3 Palliative Performance Score 40% Physical Exam Constitutional: + ill appearing Respiratory: normal respiratory effort; no labored breathing Cardiovascular: Extremities: + edema Gastrointestinal (Abdomen): distended, LUQ pain Musculoskeletal: Extremities: + muscle atrophy Results & Data ([facility]) Vital Signs (Past 12 Hours) Vital Signs Temp Pulse Pulse Resp BP Pulse Ox 07/14/21 11:38 98.2 F 121 H 16 142/89 H 95 07/14/21 07:47 98.2 F 119 H 16 136/88 94 07/14/21 06:26 115 H 07/14/21 04:00 98.8 F 101 H 18 157/94 H 91 PG Care Time/CCT Total # of Minutes Spent Total Time Spent: 45 Total Time Spent with Patient: Total time spent is greater than 50% in coordination of care (as documented) at patient's floor/unit and/or counseling patient:symptom management, patient and family education and support Coding Level of Care Code 60640 Subseq Hosp Care Lvl 3 Diagnoses Abdominal pain R10.12 Abdominal location: left upper quadrant Vomiting R11.10 Palliative care encounter Z51.5 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
[2021-07-14] MEDS ORDERED: Custom Peripheral Pn 1,000 ML in TPN BAG 0 ML IV SCH (16:00)
[2021-07-14] MEDS: OLANZapine ZYDIS 5 MG ORALLY DIS. TAB PO SCH ×2 (16:17→21:03)
[2021-07-14] MEDS: OCTREOTIDE ACETATE 100 MCG/ML VIAL SQ SCH ×2 (16:57→21:55)
[2021-07-14] MEDS: HEPARIN 100 UNIT/ML 5ML FLUSH FLUSH PRN (17:39)
[2021-07-14] MEDS: GABAPENTIN 300 MG CAP PO SCH (21:03)
[2021-07-14] MEDS: HYDROCORTISONE SOD 50 MG in SYRINGE 0 ML IV SCH (21:55)
[2021-07-14] MEDS ORDERED: OLANZapine 10 MG/2.1 ML SDV IM STA (22:19)
[2021-07-15] MEDS: LACTATED RINGER'S 1,000 ML IV SCH ×3 (00:46→20:19)
[2021-07-15] MEDS: THIAMINE HCL 500 MG in 0.9 % SODIUM CHLORIDE 100 ML IV SCH ×3 (01:39→19:05)
[2021-07-15] MEDS: HYDROmorphone INJ 0.5 MG/0.5 ML SYR IV PRN ×5 (01:45→20:16)
[2021-07-15] MEDS: ONDANSETRON INJ 2 MG/ML 2 ML VIAL IV SCH ×4 (04:05→21:49)
[2021-07-15] MEDS: OCTREOTIDE ACETATE 100 MCG/ML VIAL SQ SCH ×3 (05:53→21:49)
[2021-07-15] MEDS: HYDROCORTISONE SOD 50 MG in SYRINGE 0 ML IV SCH ×3 (05:53→21:49)
--- NOTE | 2021-07-15 07:40 | Hospitalist Progress Note ---
Date of Service July 15, 2021 Assessment & Plan (1) Ascites: (2) Malignant neoplasm of pancreas metastatic to liver: (3) SBP (spontaneous bacterial peritonitis): (4) Abdominal pain: (5) Acute hyponatremia: (6) Hypokalemia: (7) History of GI bleed: Plan: 70 yo F Hx metastatic pancreatic cancer, renal vein occlusion, recent GI Bleed, hyponatremia admitted for worsening hyponatremia, worsening abdominal pain, and ascites. Abdominal ascites and pain: Intractable nausea/vomiting: Metastatic pancreatic cancer with uncontrolled pain: -PET scan 06/20 showed mets to lung, liver, and peritoneal carcinomatosis with associated ascites. -Seen by oncology -Palliative care following--- Transitioning to comfort care. Started on hydromorphone drip. continue fentanyl patch. -Zofran, Protonix and Pepcid for the nausea/vomiting. -Haloperidol and octreotide -d/c parenteral nutrition. -d/c solucortef in am. History of GI Bleed, renal vein occlusion: Was previously diagnosed with renal vein occlusion and placed on Xarelto therapy. Recently discharged on 06/28 from [facility] for GI Bleed; at that time had Xarelto held due to bleeding. Code Status: DNR/DNI FEN: PPN DVT ppx: Heparin flush Dispo: Med/surg with tele Admission and Anticipated Discharge Date Admission Date: July 07, 2021 Supervising Physician Co-Signing Physician Notes Resident Physician Supervision Note: I independently interviewed and examined the patient and verified the gudino history and physical, reviewed labs and image studies and agree with resident Dr. Patiño findings and care plan. Subjective No overnight events for the patient but she did not sleep well due to nausea, vo miting, and pain. Physical Exam Constitutional: WD/WN, vitals as above Eyes: PERRL, conjunctivae normal, anicteric sclerae Respiratory: normal respiratory effort, lungs clear to auscultation Cardiovascular: RRR, no murmur, no edema Gastrointestinal (Abdomen): Abdomen moderate distention, BS+ in all quadrants. Tenderness to palpation mostly left lower quadrant. Skin: Port in place in right upper chest. Results & Data Results & Data ([facility]) Vital Signs (Past 12 Hours) Vital Signs Temp Pulse Pulse Resp BP Pulse Ox 07/15/21 07:29 36.9 C 129 H 20 128/68 93 10/22/21 03:25 102 H 07/14/21 23:00 37.1 C 119 H 20 127/81 95 Resident Activity Tracking Resident Involvement: Resident Care Provided Care Provided: Adult Hospital Medicine (1) Abdominal pain Abdominal location: left upper quadrant Qualified Code(s): R10.12 - Left upper quadrant pain
[2021-07-15] MEDS: PANTOprazole 40 MG in SYRINGE 0 ML IV SCH ×2 (08:24→21:48)
[2021-07-15] MEDS: FAMOTIDINE 20 MG in SYRINGE 3 ML IV SCH ×2 (08:24→21:48)
[2021-07-15] MEDS: CHECK fentaNYL PATCH PLACEMENT SCH (09:38)
[2021-07-15] MEDS: INSULIN ASPART 100 UNITS/ML 3 ML PEN SC SCH ×3 (09:39→17:40)
[2021-07-15] MEDS: DOCUSATE SODIUM 100 MG CAP PO SCH (09:40)
[2021-07-15] MEDS: POLYETHYLENE (MIRALAX) 17 GM PACK PO SCH (09:40)
[2021-07-15] MEDS: INSULIN GLARGINE SOLOSTAR 100 UNITS/ML 3 ML PEN SC SCH (09:43)
[2021-07-15] MEDS: OLANZapine ZYDIS 5 MG ORALLY DIS. TAB PO SCH ×2 (09:44→21:48)
--- NOTE | 2021-07-15 10:33 | Electrocardiogram Report ---
Test Reason : Blood Pressure : / mmHG Vent. Rate : 115 BPM Atrial Rate : 115 BPM P-R Int : 130 ms QRS Dur : 092 ms QT Int : 340 ms P-R-T Axes : 061 035 039 degrees QTc Int : 470 ms Poor data quality, interpretation may be adversely affected Sinus tachycardia Otherwise normal ECG When compared with ECG of 25-JUN-2021 13:13, Vent. rate has increased BY 48 BPM T wave inversion no longer evident in Anterior leads Confirmed by Erlin Quintana ([id number]) on 07/15/2021 10:33:28 AM Referred By: REFERRED SELF Confirmed By:Erlin Quintana
[2021-07-15 11:53] LABS: BUN Creatinine Ratio 39.7 (10-20); Calcium 8.7 mg/dl (8.5-10.1); Creatinine Clr Calc Pharmacy 44.6 ml/min; Est GFR (African American) 59.7 ml/min; Est GFR (Non-African American) 51.5 ml/min; Magnesium 2.1 mg/dl (1.8-2.4)
[2021-07-15 11:54] LABS: Phosphorus 3.6 mg/dl (2.5-4.9)
[2021-07-15] MEDS ORDERED: STAT IV Infusion **Titration per Protocol STA (13:47)
[2021-07-15] MEDS ORDERED: HYDROmorphone/NSS 100 MG/100 ML BAG IV SCH (14:30)
--- NOTE | 2021-07-15 15:37 | Palliative Care Progress Note ---
Date of Service July 15, 2021 Assessment & Plan (1) Abdominal pain: Plan: I am concerned that we are not getting optimal absorption with fentanyl patch and pain control remains less than optimal. Gustavo does not seem to ask for pain medication and sometimes gets vomiting and pain confused. We discussed removing fentanyl patch and transitioning to hydromorphone infusion for better pain control, easier to titrate to her needs. Family is in agreement with this. Orders placed for hydromorphone infusion with no titration. She does have prn hydromorphone for breakthrough pain and we can adjust basal dose based on pain and prn use. (2) Vomiting: Plan: Somewhat improved with increased zyprexa and octreotide. Continue for now. We had a long discussion about TPN and plan for discharge. Gustavo very much wants to go home. Family very much wants to have her at home but has worries about being able to meet her comfort needs. Gustavo says that she does not want to continue TPN. She complains of discomfort from IV and telemetry device. We will d/c telemetry. We talked again about natural metabolic changes as she approaches her dying time and decreased need for nutrition as well as other ways to help her comfort. Family has decided not to continue TPN. (3) Palliative care encounter: Plan: We discussed continue decline for Gustavo and concern that her prognosis is shorter than hoped. We talked about family concerns about care. They are very attentive and supportive for her care but feel somewhat uncomfortable with the medical care she will need. Given family decision to stop TPN, hospice would definitely be most appropriate source of support for them at home. We reviewed support that they would provide. Ultimately, the goal is to get Gustavo home with hospice. With family adjustment and conversion to hydromorphone infusion, decision has been made to plan for discharge home tomorrow with hospice and monitor pain and symptom management overnight. Discussed with Dr. 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 She was calm and sitting in chair when I arrived. She does have increased confusion. She continues to rub her abdomen at times and has had a few prn doses of hydromorphone overnight. Per her she seems to have somewhat less emesis with decreased volume this morning. Review of Systems Review of Systems: [place] Symptom Assessment Scale Pain 2/3 Dyspnea 0/3 Nausea 0/3 Fatigue 2/3 Drowsiness 1/3 Palliative Performance Score 40% Physical Exam Constitutional: + ill appearing ENMT: Mouth: + dry oral mucous membranes Respiratory: normal respiratory effort; no labored breathing Cardiovascular: Extremities: + edema Gastrointestinal (Abdomen): distended LUQ tenderness Musculoskeletal: Extremities: + muscle atrophy Neurologic: + confused (at times) Results & Data ([facility]) Vital Signs (Past 12 Hours) Vital Signs Temp Pulse Pulse Resp BP BP Pulse Ox 07/15/21 14:58 98.4 F 106 H 14 109/76 93 07/15/21 12:15 109 H 07/15/21 12:09 97.9 F 107 H 16 94/67 L 100 07/15/21 07:29 98.4 F 129 H 20 128/68 93 PG Care Time/CCT Total # of Minutes Spent Total Time Spent: 90 Total Time Spent with Patient: Total time spent is greater than 50% in coordination of care (as documented) at patient's floor/unit and/or counseling patient: symptom management, family education and support, coordination of care Coding Level of Care Code 52254 Subseq Hosp Care Lvl 3 Diagnoses Abdominal pain R10.12 Abdominal location: left upper quadrant Vomiting R11.10 Palliative care encounter Z51.5 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
[2021-07-15] MEDS: fentaNYL 75 MCG/HR TDSY TD SCH (15:59)
[2021-07-15] MEDS ORDERED: OLANZapine ZYDIS 5 MG ORALLY DIS. TAB PO SCH (21:00)
[2021-07-15] MEDS ORDERED: DICLOFENAC SOD 1% GEL 100 GM TUBE EXT PRN (21:23)
[2021-07-16] MEDS ORDERED: OLANZapine ZYDIS 5 MG ORALLY DIS. TAB PO SCH ×2
[2021-07-16] MEDS: HYDROmorphone INJ 0.5 MG/0.5 ML SYR IV PRN ×5 (00:01→06:24)
[2021-07-16] MEDS: LACTATED RINGER'S 1,000 ML IV SCH ×3 (01:06→17:38)
[2021-07-16] MEDS: ONDANSETRON INJ 2 MG/ML 2 ML VIAL IV SCH ×3 (05:16→16:16)
[2021-07-16] MEDS: OCTREOTIDE ACETATE 100 MCG/ML VIAL SQ SCH ×2 (05:16→14:16)
[2021-07-16] MEDS: OLANZapine ZYDIS 5 MG ORALLY DIS. TAB PO SCH (09:56)
[2021-07-16] MEDS: HYDROCORTISONE SOD 50 MG in SYRINGE 0 ML IV SCH (10:32)
[2021-07-16] MEDS: PANTOprazole 40 MG in SYRINGE 0 ML IV SCH (10:32)
--- NOTE | 2021-07-16 10:37 | Discharge Summary ---
Date of Service July 16, 2021 Admission HPI Per Admitting Provider 70 yo F Hx metastatic pancreatic cancer, renal vein occlusion, GI Bleed, hyponatremia presented to the ER for worsening abdominal pain and belly bloating. She reports that between chemo rounds 1 and 2 she started to feel somewhat worse with regard to her abdominal pain. She was able to control it with her home pain regimen including fentanyl patches every 3 days and oxycodone every 4 hours as needed for pain up until about 2 days ago. She noted that her abdomen was becoming more enlarged and she was having worsening of pain despite her pain meds at home. She does not report any fevers or chills, chest pain, shortness of breath. She does endorse poor oral intake over the last several days secondary to nausea and vomiting, abdominal pain. She also reports that at 1 point she was going up the stairs and felt somewhat lightheaded and leaned against her daughter. In the ER patient was noted to have hemoglobin of 8.9, platelets 111, sodium 122, K3.4, elevated alk phos and T bili (baseline), UA without evidence of infection, COVID-[address] abdomen and pelvis showed that patient has developed a 2 cm right lobe liver lesion new from previous imaging, as well as a suspected developing biloma. It also noted moderate in size ascites without loculation. Patient is currently undergoing chemotherapy under the direction of Dr. Mcfarland. Patient's greatest concern at this time is pain control as she is significantly uncomfortable despite home medications. In the ER she received NSS 500 cc bolus as well as hydromorphone IV. Principal Diagnosis Metastatic Disease Discharge Exam Constitutional: WD/WN, vitals as above Eyes: PERRL, conjunctivae normal, anicteric sclerae Respiratory: normal respiratory effort, lungs clear to auscultation Cardiovascular: RRR, no murmur, no edema Gastrointestinal: Abdomen moderate distention, BS+ in all quadrants. Diffuse tenderness to palpation. Skin:Port in place in right upper chest. 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 Abdominal ascites and pain: Intractable nausea/vomiting: Metastatic pancreatic cancer with uncontrolled pain: -PET scan 06/20 showed mets to lung, liver, and peritoneal carcinomatosis with associated ascites. -Seen by oncology. -Was kept on PPN and different meds to help control the nausea and vomiting with no help. -Palliative care followed through the hospital stay--- Eventually Transitioned to comfort care. Started on hydromorphone drip. Continued -Zofran, Protonix and Pepcid for the nausea/vomiting. -d/tayla other home meds. -Sent home with hospice on IV hydromorphone infusion. Total Time Total Time Spent Total Time Spent (In Minutes): 30 Discharge Plan Discharge Items Patient Disposition: Hospice - Home Reason For Visit: HYPONATREMIA, PAINFUL ASCITES Discharge Diagnosis: Metastatic Disease Activity: Per Instructions section Non-emergency contact: Primary Care Provider Call non-emergency contact if: your pain is not controlled and your pain is worsening Follow-up/Referrals: Griselda Fair D.O. [Primary Care Provider] - Diet: Other - See Diet Comment Addtl Attending Provider Instructions: You were seen in the hospital for intractable nausea and vomiting. This was secondary to your metastatic disease. While you were in the hospital you were put on comfort measures only and were evaluated by Palliative Care who, with your input, deemed that hospice care at home is the best course of action. In the hospital you received medications for your cancer-related pain and nausea to make you more comfortable. You are being discharged home under the supervision of the hospice team and will be receiving Dilaudid infusion pump to control your pain. You will be given a dose of this medication for your drive home where you will continue your dilaudid drip as well as your medication for your nausea. It was a pleasure to be a part of your care and we wish you and your family the best during this difficult time. Pending Studies at Discharge: No Stand-Alone Forms: My [facility] Medications and DC Order Prescriptions: New olanzapine 5 mg Tablet,Disintegrating 5 mg PO HS Qty: 20 RF: 0 ondansetron HCl (PF) 4 mg/2 mL Solution 4 mg IV Q6H Qty: 10 RF: 0 hydromorphone 0.5 mg/0.5 mL Syringe 0.5 mg IV Q30M PRN (Reason: pain) Qty: 5 RF: 0 olanzapine 5 mg Tablet,Disintegrating 2.5 mg PO QAM Qty: 20 RF: 0 ondansetron 4 mg tablet,disintegrating 4 mg PO TID PRN (Reason: nausea and vomiting) 4 Days Qty: 20 RF: 0 Discontinued gabapentin [Neurontin] 300 mg capsule 300 mg PO HS RF: 0 metoclopramide HCl [Reglan] 10 mg tablet 10 mg PO TIDM RF: 0 Creon 36,000-114,000- 180,000 unit capsule,delayed release(DR/EC) 1 cap PO TIDM RF: 0 prednisone 10 mg tablet 10 mg PO DAILY RF: 0 docusate sodium [Dulcolax Stool Softener (dss)] 100 mg Capsule 100 mg PO DAILY RF: 0 oxycodone 10 mg tablet 10 mg PO Q4H PRN (Reason: pain) Qty: 30 RF: 0 fentanyl 25 mcg/hr Patch 72 Hour 25 mcg transdermal Q3D Qty: 5 RF: 0 polyethylene glycol 3350 [Miralax] 17 gram Powder In Packet 17 g PO BID Qty: 30 RF: 0 pantoprazole 40 mg tablet,delayed release (DR/EC) 40 mg PO DAILY Qty: 30 RF: 0 ondansetron HCl 8 mg tablet 8 mg PO Q8 PRN (Reason: Nausea) RF: 0 Discharge Orders: Discharge Order (Routine); Ordered 07/16/21 Ordered By: Ross Briseno Admission Data Admit Date/Time: 07/07/21 05:11 Attending Provider: Melissa Noel Admit Provider: Grecia Hernandez Primary Care Provider: Griselda Fair Other Providers: Ra Mcfarland V. ; Rosina Bocanegra ; Karthik Lo ; [facility] Supervising Physician Co-Signing Physician Notes Resident Physician Supervision Note: I independently interviewed and examined the patient and verified the gudino history and physical, reviewed labs and image studies and agree with resident Dr. Briseno findings and care plan. Resident Activity Tracking Resident Involvement: Resident Care Provided Care Provided: Adult Hospital Medicine
[2021-07-16] MEDS: FAMOTIDINE 20 MG in SYRINGE 3 ML IV SCH (10:40)
[2021-07-16] MEDS ORDERED: HYDROmorphone INJ 0.5 MG/0.5 ML SYR IV ONE (14:34)
[2021-07-16] MEDS ORDERED: OLANZapine ZYDIS 5 MG ORALLY DIS. TAB PO ONE (17:30)
== END 2021-07-16 19:30 | disposition hospice, home (50) | DRG 435 ==
LOC: ED 01:12 → SUATTDRO 05:11 → EDINP 05:11 → 2W 07:30
DX: C25.9 Malignant neoplasm of pancreas, unspecified; K56.7 Ileus, unspecified; Z66 Do not resuscitate; G89.3 Neoplasm related pain (acute) (chronic); C78.6 Secondary malignant neoplasm of retroperitoneum and peritoneum; E87.1 Hypo-osmolality and hyponatremia; I82.3 Embolism and thrombosis of renal vein; R18.0 Malignant ascites; C78.7 Secondary malignant neoplasm of liver and intrahepatic bile duct; Z51.5 Encounter for palliative care; K65.2 Spontaneous bacterial peritonitis; Z79.52 Long term (current) use of systemic steroids; E87.6 Hypokalemia; E88.09 Other disorders of plasma-protein metabolism, not elsewhere classified